=== PATIENT | female | born 1950 | race Two or more races ===

== ENCOUNTER 2024-03-15 20:46 | Inpatient (IN) | payer MEDICARE, SELFPAY ==
--- NOTE | ~2024-03-15 | XR_ITS ---
EXAMINATION: XR CHEST CLINICAL INFORMATION: NG tube. COMPARISON: Chest x-ray March 16, 2024, 3:25 PM TECHNIQUE: Frontal portable view of the chest was obtained. 5:28 PM FINDINGS: Nasogastric tube is still folded upon itself with the catheter tip pointing superiorly. The catheter has been pulled back and now overlies the mid to upper thoracic esophagus. No acute focal consolidation. No pleural effusion. No pulmonary vascular congestion. XR/XR chest 1V IMPRESSION: Nasogastric tube is still folded upon itself with the catheter tip pointing superiorly. The catheter has been pulled back and now overlies the mid to upper thoracic esophagus. Repositioning recommended. This critical result was discussed with Dr Schmitz on 02/15/2024, 6:09 PM and it was ascertained that the content and urgency of the report was understood at the time of direct communication.
--- NOTE | ~2024-03-15 | XR_ITS ---
EXAMINATION: XR CHEST CLINICAL INFORMATION: Nasogastric tube placement COMPARISON: CT of the abdomen and pelvis from earlier the same day TECHNIQUE: Frontal view of the chest was obtained. FINDINGS: Nasogastric tube appears coiled in the distal thoracic esophagus with tip of the tube projecting cephalad toward the head. Cardiac and mediastinal contours are normal. Lungs are clear. No pleural effusion or pneumothorax. There are dilated loops of bowel below the diaphragms similar to earlier CT. XR/XR chest 1V IMPRESSION: 1. Nasogastric tube coiled in the distal thoracic esophagus with tip of the tube projecting cephalad toward the head. Repositioning recommended. Findings will be communicated by the [place] work flow wall steamer.
--- NOTE | ~2024-03-15 | XR_ITS ---
EXAMINATION: XR CHEST CLINICAL INFORMATION: NG tube placement COMPARISON: Previous chest x-ray from earlier the same day TECHNIQUE: Frontal view of the chest was obtained. FINDINGS: Nasogastric tube projects over the stomach. The cardiac and mediastinal contours are stable. Subsegmental atelectasis at the left lung base. There may be a small left pleural effusion. The right lung is clear. No right pleural effusion. No pneumothorax. Distended bowel below the diaphragm. XR/XR chest 1V IMPRESSION: Nasogastric tube projects over stomach.
--- NOTE | ~2024-03-15 | CT_ITS ---
EXAMINATION: CT ABDOMEN AND PELVIS WITH CONTRAST CLINICAL INFORMATION: Abdominal pain for one month. Distention. No bowel movement. Rule out malignancy. COMPARISON: None available. TECHNIQUE: Multidetector volumetric images were obtained from the superior aspect of the liver through the pubic symphysis following administration 85 mL of Omnipaque 350 intravenous contrast. Sagittal and coronal reformatted images were obtained on the technologist's workstation. Oral contrast: No This CT examination was performed using dose optimization techniques as appropriate, variously including the following: *Automated exposure control *Adjustment of mA and/or kV according to patient size (this includes techniques or standardized protocols for targeted exams where dose is matched to indication/reason for exam; i.e. extremities or head) *Use of iterative reconstruction technique DLP: 448 mGy-cm FINDINGS: LUNG BASES: Trace left pleural fluid with minimal associated atelectasis. LIVER, GALLBLADDER, AND BILIARY TREE: The liver appears unremarkable in size, shape, and attenuation. No focal hepatic lesion or biliary ductal dilatation is appreciated. Unremarkable appearance of the gallbladder. 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 The kidneys otherwise appear unremarkable in size, shape, and attenuation. No hydronephrosis, hydroureter, or calculi seen. BLADDER: Unremarkable GASTROINTESTINAL TRACT: Suspect abnormal, irregular thickening of the wall of the mid to distal sigmoid colon (image 66, axial series 3; image 38, coronal series 7). Dilation of more proximal colon and small bowel, many containing air-fluid levels. The cecum measures up to approximately 7.6 cm in diameter. Small to moderate hiatus hernia. ABDOMINAL WALL: Bilateral groin hernias. The hernia on the right is felt more likely to represent a femoral rather than inguinal hernia, and measures up to approximately 4.5 cm. The hernia on the left is felt more likely to represent an inguinal hernia and measures up to approximately 2 cm. Both contain trace fluid. Mild anasarca. LYMPH NODES: No evidence of adenopathy by size criteria. VASCULAR: Unremarkable PELVIC VISCERA: Unremarkable OSSEOUS STRUCTURES: Degenerative changes of the lumbar spine with minimal grade 1 anterolisthesis of L3 on L4 and L4 on L5. Superior endplate softening/compression of L2. Geographic hypodensities involving the lower lumbar vertebrae and sacrum. This hypodensity appears to demonstrate fat attenuation Hounsfield unit values throughout, and may represent a combination of normal fatty marrow replacement and hemangiomas. CT/CT abdomen pelvis w IV con IMPRESSION: Suspect abnormal, irregular thickening of the wall of the mid to distal sigmoid, suspicious for malignancy. Dilation of more proximal colon and small bowel, many containing air-fluid levels, suggesting early or partial obstruction. The cecum measures up to approximately 7.6 cm in diameter. No evidence of adenopathy or metastatic disease. Superior endplate softening/compression of L2. Recommend clinical correlation. Bilateral groin hernias as detailed above. Trace left pleural fluid.
[2024-03-15 22:23] VITALS: BP 136/65; PULSE 86; RESP 14; TEMP 36.6; O2SAT 100; BMI 22.1
[2024-03-15 22:40] LABS: MANUAL DIFF FLAG NO
[2024-03-15 22:41] LABS: Basophils Percent Auto 0.1 % (0-2); Hematocrit 27.1 % (37.0-47.0); Hemoglobin 8.2 g/dl (12.0-16.0); Imm Gran Abs Auto 0.03 X10*3/uL (0.00-0.03); Imm Gran Pct Auto 0.4 % (0.0-0.4); Lymphocytes Absolute Auto 0.7 X10*3/uL (1.2-4.9); Lymphocytes Percent Auto 9.3 % (20-40); Mean Corpuscular HGB Conc 30.3 g/dl (31.0-35.0); Mean Corpuscular Hemoglobin 22.7 pg (27.0-33.0); Mean Corpuscular Volume 74.9 fL (80.0-98.0); Mean Platelet Volume 8.7 fL (9.4-12.3); Monocytes Absolute Auto 0.8 X10*3/uL (0.1-1.2); Monocytes Percent Auto 9.8 % (2-11); Neutrophils Absolute Auto 6.1 x10*3/uL (2.0-8.3); Neutrophils Percent Auto 80.4 % (45-73); Platelet Count 493 X10*3/uL (160-400); Red Blood Count 3.62 X10*6/uL (4.20-5.50); Red Cell Distribution Width 18.3 % (11.0-16.0); White Blood Count 7.6 X10*3/uL (4.8-10.8)
[2024-03-15 22:55] LABS: COVID-19 Test Negative (Negative); IDNOW Serial# 152EDE1D
[2024-03-15 22:56] LABS: Alanine Aminotransferase 18 U/L (0-31); Alkaline Phosphatase 107 U/L (39-117); Anion Gap 22 (12-20); Aspartate Amino Transferase 26 U/L (5-31); Bilirubin Total 0.5 mg/dL (0.0-1.0); Blood Urea Nitrogen 22 mg/dL (9-16); Calcium 9.2 mg/dL (8.4-10.2); Carbon Dioxide 20 mmol/L (22-29); Chloride 98 mmol/L (96-108); Creatinine Clr Calc Pharmacy 49.6; Estimated Glomerular Filt Rate > 60; Glucose Random 126 mg/dL (60-115); Lipase 31 U/L (8-78); Potassium 3.5 mmol/L (3.3-5.1); Sodium 136 mmol/L (135-145); Total Protein 7.5 g/dL (6.5-8.0)
[2024-03-16] VITALS (10 sets, daily range): BP systolic 111–152; BP diastolic 53–71; PULSE 74–94; RESP 14–20; TEMP 36.4–37.2; O2SAT 93–100
--- NOTE | 2024-03-16 | ECG_ITS ---
Test Reason : ABD PAIN Blood Pressure : / mmHG Vent. Rate : 085 BPM Atrial Rate : 085 BPM P-R Int : 140 ms QRS Dur : 074 ms QT Int : 396 ms P-R-T Axes : 089 033 016 degrees QTc Int : 471 ms Sinus rhythm with occasional Premature ventricular complexes Minimal voltage criteria for LVH, may be normal variant ( Sokolow-Snow ) Cannot rule out Anterior infarct , age undetermined Abnormal ECG No previous ECGs available Referred By: Generic ED Physician Electronically Signed By:BOBBY HERNANDEZ
--- NOTE | 2024-03-16 04:42 | MHC.EDTECH ---
Pt notified of the need for a Urine sample. Vital signs taken.
--- NOTE | 2024-03-16 05:03 | PC.NURSE ---
Pt reports no BM since last . abd pain 7/10 and epigastric pain that radiates to left flank, and n/v. Pt has new onset of bilateral lower extremity edema. Pt denies headache/ chest pain/cough and sick contact. Pt is spo but daughter is at bedside and speaks swedish. IV access obtained. Pt changed into hospital attire. Hospital socks placed. Pt ambulates with a steady gait, but daughter assisted to restroom for UA collection. Plan of care ongoing.
--- NOTE | 2024-03-16 05:14 | ED.ABDPAIN ---
HPI - Abdominal Pain General Chief Complaint: Abdominal Pain Stated Complaint: constipation/back pain/bloated Time Seen by Provider: 03/16/24 05:13 Source: patient Mode of arrival: ambulatory Limitations: language barrier (Patient's 1st language is Cameroonian, she does speak some Brazilian) History of Present Illness HPI narrative: 73-year-old female who presents emergency department for evaluation of constipation, abdominal pain, abdominal distention, lower extremity swelling loss of appetite x1 month. The patient states that she has been having pain in her stomach for 1 month. She states she feels very bloated. The patient has nausea and is unable to eat. If she tries to eat or drinks water she vomits. She states that her legs are very swollen as well. She complains of a burning sensation in her throat and epigastric area as well as in her back. She states that the pain is constant in 7/10 at its worst. Patient has not noticed any change in her weight. She denied dark stools or bloody stools. Related Data Allergies Allergy/AdvReac Type Severity Reaction Status Date / Time No Known Allergies Allergy Verified 03/15/24 22:27 Review of Systems Review of Systems Yes all other systems are reviewed and are negative [facility] Past Medical History [facility] Narrative: Past medical history none. Surgical history: Left hip replacement. Social history she denies tobacco, alcohol and drug use Social History Social History Smoked in Last 30 Days: No Use of substances other than those prescribed or required for medical reasons: No Advance Directives: No Advance Directives Information Provided: No Do you have a plan to hurt others: No Plan Physical Exam ED Vital Signs: Vital Signs - 24 hr 03/15/24 22:23 03/16/24 01:24 03/16/24 04:41 Temperature 97.8 F 98.6 F 98.9 F Pulse Rate 86 78 91 Respiratory Rate 14 16 18 Blood Pressure 136/65 145/71 H 120/63 Pulse Oximetry 100 100 98 Oxygen Delivery Method Room Air Room Air Room Air 03/16/24 06:38 Temperature 97.6 F Pulse Rate 94 Respiratory Rate 14 Blood Pressure 127/60 Pulse Oximetry 98 Oxygen Delivery Method Room Air BMI result Body Mass Index 22.1 Vital signs were normal Exam: General: Awake, alert in no distress, strong ketotic odor to breath Head: Normocephalic, atraumatic EENT: PERRL, Lids normal, sclera normal, conjunctiva normal, nose normal , ears normal, throat without erythema or exudates Neck: Supple, no adenopathy Lung: breath sounds symmetric, no wheezing, rales or rhonchi Chest: symmetric movement, nontender Heart: regular rate and rhythm, normal S1, S2 2/6 systolic murmur best heard at the left upper sternal border Abdomen: Abdomen appears to be distended, she has diminished bowel sounds, she has [id number] diffuse tenderness with moderate to severe left lower quadrant tenderness Rectal exam: No external hemorrhoids noted, sphincter tone is normal, there is a palpable mass on digital exam, there was no stool in the rectum or evidence of impaction Back: no vertebral tenderness, no CVAT Extremities: no deformities, moves all extremities symmetrically Neuro: Awake, alert, oriented, normal speech, moves all extremities symmetrically Psych: Pleasant, cooperative Medical Decision Making Medical Decision Making MDM Narrative: 73-year-old female who presents emergency department for evaluation of constipation, abdominal pain, abdominal distention, lower extremity swelling, loss of appetite x1 month. Patient has not been able to eat or drink secondary to nausea and vomiting. She complains of pain in her epigastric area and left lower abdominal area. Vital signs were normal. Exam revealed a strong ketotic odor on her breath consistent with starvation ketosis. Patient's abdomen was distended with diffuse tenderness with increased tenderness in the left lower quadrant. Rectal exam did reveal a mass on digital exam with no stool in the rectum and no impaction. Differential diagnosis: ?Includes but is not limited to constipation, GI malignancy, bowel obstruction, pancreatitis, diverticulitis, anemia, electrolyte abnormalities Following evaluation was ordered: CBC, CMP, lipase, urinalysis, COVID-19, EKG, CT scan of the abdomen pelvis with IV contrast Patient was initially treated with the following: Morphine 2 mg IV, Zofran 4 mg IV, normal saline x1 L Course: 05:49 My interpretation patient's laboratory evaluation is as follows: Microcytic anemia with an H&H of 8.2 and 27.1 with MCV of 74.9. Elevated platelet count [id number]. Elevated glucose 126. Elevated BUN 20. Low bicarb 20. LFTs were normal. Lipase was normal. Given the patient's microcytic anemia, abdominal symptoms and rectal mass I am concerned that the patient may have a GI malignancy as the cause of her symptoms. 08:37 CT scan of the abdomen pelvis IV contrast is concerning for distal partial small-bowel obstructions and sigmoid malignancy. I did discuss these findings with the patient and the patient's daughter. I did consult the on-call surgeon, Dr. Bryant who evaluated the patient in the emergency department and recommended admission to the hospitalist service. I also consulted over tiger text the covering care technician, Dr. Chu. The patient was discussed over tiger text with the covering hospitalist, Dr. Schmitz and the patient will be admitted to the hospitalist service for further management. Admission/Observation Consideration of admission/observation: Escalation of care including admission/observation considered Lab Data MDM Lab Attestation statement: I reviewed the patient's lab results. 03/15/24 22:35 03/15/24 22:35 Labs: Lab Results 03/15/24 03/16/24 Range/Units 22:35 05:20 WBC 7.6 (4.8-10.8) X10*3/uL RBC 3.62 L (4.20-5.50) X10*6/uL Hgb 8.2 L (12.0-16.0) g/dl Hct 27.1 L (37.0-47.0) % MCV 74.9 L (80.0-98.0) fL MCH 22.7 L (27.0-33.0) pg MCHC 30.3 L (31.0-35.0) g/dl RDW 18.3 H (11.0-16.0) % Plt Count 493 H (160-400) X10*3/uL MPV 8.7 L (9.4-12.3) fL Immature Gran % (Auto) 0.4 (0.0-0.4) % Neut % (Auto) 80.4 H (45-73) % Lymph % (Auto) 9.3 L (20-40) % [place] % (Auto) 9.8 (2-11) % Eos % (Auto) 0.0 (0-4) % Baso % (Auto) 0.1 (0-2) % Lymph # (Auto) 0.7 L (1.2-4.9) X10*3/uL [place] # (Auto) 0.8 (0.1-1.2) X10*3/uL Eos # (Auto) 0.0 (0.0-0.4) X10*3/uL Baso # (Auto) 0.0 (0.0-0.2) X10*3/uL Abs Immat Gran (auto) 0.03 (0.00-0.03) X10*3/uL Absolute Neuts (auto) 6.1 (2.0-8.3) x10*3/uL Absolute Nucleated RBC 0.000 (0.0-0.012) X10*3/uL Nucleated RBC % (auto) 0.0 (0.0-0.2) /100WBC Sodium 136 (135-145) mmol/L Potassium 3.5 (3.3-5.1) mmol/L Chloride 98 (96-108) mmol/L Carbon Dioxide 20 L (22-29) mmol/L Anion Gap 22 H (12-20) BUN 22 H (9-16) mg/dL Creatinine 0.81 (0.5-1.4) mg/dL Estim Creat Clear Calc 49.6 Estimated GFR > 60 Random Glucose 126 H (60-115) mg/dL Calcium 9.2 (8.4-10.2) mg/dL Total Bilirubin 0.5 (0.0-1.0) mg/dL AST 26 (5-31) U/L ALT 18 (0-31) U/L Alkaline Phosphatase 107 (39-117) U/L Total Protein 7.5 (6.5-8.0) g/dL Albumin 4.0 (3.5-5.0) g/dL Lipase 31 (8-78) U/L Urine Color Dark Yellow Urine Appearance Clear Urine pH 5.5 (5.0-9.0) Ur Specific [place] >= 1.030 H (1.005-1.025) Urine Protein 30 (1+) H (Neg-Trace) mg/dL Urine Glucose (UA) Negative (Negative) mg/dL Urine Ketones >=160 (Negative) mg/dL Urine Blood Negative (Negative) Urine Nitrite Negative (Negative) Ur Leukocyte Esterase Trace H (Negative) Urine RBC 0-2 (0-2) /HPF Urine WBC 0-5 (0-5) /HPF Ur Squamous Epith Cells 0-2 (0-2) /HPF Urine Bacteria None Seen (None Seen) Hyaline Casts 0-2 (0-2) /LPF COVID-19 (RAHUL) Negative (Negative) COVID-19 Clin Com See Note Independent Interpretation I performed an independent interpretation of an: EKG Interpretation: 05:51 My interpretation of the patient's 12 EKG done at 05:25 hours is as follows: Normal sinus rhythm with a rate of 85, normal OH interval, QRS duration QTC interval, no ST segment elevation, no ST segment depression, poor R-wave progression V1 through V3, nonspecific T-wave abnormalities, no PACs, no PVCs Radiology Impression Discussion of test interpretation with radiology: I have reviewed the radiologist's reading. Radiologist Impression: CT abdomen pelvis w IV con IMPRESSION: Suspect abnormal, irregular thickening of the wall of the mid to distal sigmoid, suspicious for malignancy. Dilation of more proximal colon and small bowel, many containing air-fluid levels, suggesting early or partial obstruction. The cecum measures up to approximately 7.6 cm in diameter. No evidence of adenopathy or metastatic disease. Superior endplate softening/compression of L2. Recommend clinical correlation. Bilateral groin hernias as detailed above. Trace left pleural fluid. Dictated By: Davin Qiu Medications Administered Discontinued Medications Generic Name Dose Route Start Last Admin Trade Name Freq PRN Reason Stop Dose Admin Sodium Chloride 1,000 mls @ 999 mls/hr 03/16/24 05:40 03/16/24 05:47 Ns IV 03/16/24 06:40 999 mls/hr .Q1H1M STA Administration Iohexol 85 ml 03/16/24 06:52 03/16/24 06:54 Iohexol 350 Mg/Ml 100 Ml Infus..Btl IV 03/16/24 06:53 85 ml ONCE ONE Administration Morphine Sulfate 2 mg 03/16/24 05:40 03/16/24 05:46 Morphine Sulfate 4 Mg/Ml Cartridge IVPUSH 03/16/24 05:41 2 mg ONCE STA Administration Protocol Ondansetron HCl 4 mg 03/16/24 05:40 03/16/24 05:46 Ondansetron Hcl 4 Mg/2 Ml Vial IVPUSH 03/16/24 05:41 4 mg ONCE ONE Administration Critical Care Time Critical Care Time Critical Care Time: Yes Total Critical Care Time: 45 Attestation: Critical Care: The patient was critically ill with a high probability of imminent or life threatening deterioration. I spent greater than 30 minutes of discontinuous time evaluating the patient,delivering critical care at the bedside, discussing and evaluating pertinent data with consultants. Critical care time does not include time spent performing separately billable procedures or teaching. Total time spent performing critical care was 45 minutes. Discharge Plan Discharge Patient Disposition: Admitted As Inpatient Print Language: Cam[place]onian
[2024-03-16] MEDS: ondansetron HCL 4 MG/2 ML VIAL IVPUSH ×2 (05:46→08:55)
[2024-03-16] MEDS: Morphine Sulfate 4 MG/ML CARTRIDGE 2 MG IVPUSH ×2 (05:46→18:58)
[2024-03-16 05:47] LABS: Appearance Urine Clear; Color Urine Dark Yellow; Glucose Urine UA Negative (Negative); Leukocyte Esterase Urine Trace (Negative); Nitrite Urine Negative (Negative); PH 5.5 (5.0-9.0); Specific Gravity - Urine >= 1.030 (1.005-1.025); UMIC TRIGGER UACC YES; Urine Blood Negative (Negative); Urine Ketones >=160 mg/dL (Negative); Urine Protein 30 (1+) mg/dL (Neg-Trace)
[2024-03-16] MEDS: 0.9 % Sodium Chloride 1,000 ML 999 ML IV (05:47)
--- NOTE | 2024-03-16 05:53 | PC.NURSE ---
Pt confirms no NKDA. Pt ca&ox4, no signs of distress. Pt medicated per mar. Daughter remains at bedside. Plan of care ongoing.
[2024-03-16 06:08] LABS: Bacteria Urine None Seen (None Seen); Hyaline Casts Urine 0-2 /LPF (0-2); RBC Urine 0-2 /HPF (0-2); Squamous Epithelial Cell Urine 0-2 /HPF (0-2); WBC Urine 0-5 /HPF (0-5)
--- NOTE | 2024-03-16 06:31 | PC.NURSE ---
Pt with CT. Daughter remains at bedside. Plan of care ongoing
[2024-03-16] MEDS: iohexoL 350 MG/ML 100 ML INFUS..BTL 85 ML IV (06:54)
--- NOTE | 2024-03-16 08:50 | P.CONGS_ITS ---
History of Present Illness Consult details Consult date: 03/16/24 Reason for consult: abdominal pain Requesting physician: Solomon Jett Narrative: 73-year-old female patient presents to the emergency department with complaints of abdominal pain, distention and constipation. She reports anorexia and nausea/vomiting which has progressed over the past month. The nausea and distention has been episodic but increased over the past week necessitating the visit to the emergency department. She does report 2 episodes of blood per rectum but generally has been constipated. Patient denies a previous history of abdominal surgeries. She denies a previous colonoscopy. On evaluation in the emergency department the patient was felt to possibly have a palpable rectal mass. Workup with CT abdomen and pelvis reveals thickening of the sigmoid colon suggestive of malignancy. Laboratories reveal a microcytic anemia. Review of Systems 2 Review of Systems: Yes all other systems are reviewed and are negative Constitutional: Constitutional: Denies chills, Denies fever(s), Denies headache(s), Reports poor appetite and Reports weakness ENT: Denies headache(s) Cardiovascular: Cardiovascular: Denies chest pain, Denies irregular heart rhythm, Denies palpitations and Denies dyspnea Respiratory: Respiratory: Denies cough, Denies excessive phlegm production and Denies dyspnea Gastrointestinal: Gastrointestinal: Reports abdominal pain, Reports bloating, Reports change in bowel habits, Reports constipation, Denies heartburn, Denies diarrhea, Reports nausea and Reports vomiting Genitourinary: Genitourinary: Denies urinary frequency Musculoskeletal: Musculoskeletal: Denies back pain, Denies muscle weakness and Denies numbness Integumentary/Breasts: Skin/Breast: Denies changing lesions and Denies unusual bruising Neurologic: Denies headache(s), Denies numbness, Denies paresthesias and Reports weakness Psychiatric: Psychiatric: Denies anxiety and Denies depression Endocrine: Endocrine: Reports flushing and Denies palpitations Hematologic/Lymphatic: Hematologic/Lymphatic: Denies lymphadenopathy PMFSH Social History Social History Smoked in Last 30 Days: No Use of substances other than those prescribed or required for medical reasons: No Advance Directives: No Advance Directives Information Provided: No Do you have a plan to hurt others: No Plan Meds Allergies Allergy/AdvReac Type Severity Reaction Status Date / Time No Known Allergies Allergy Verified 03/15/24 22:27 Active Medications: Current Medications Dextrose/Sodium Chloride (D5ns) 1,000 mls @ 125 mls/hr IVCONT .Q8H [facility] Physical Exam 2 Vital Signs: Vital Signs: Last Vital Signs Temp 97.6 F 03/16/24 06:38 Pulse 94 03/16/24 06:38 Resp 14 03/16/24 06:38 BP 127/60 03/16/24 06:38 Pulse Ox 98 03/16/24 06:38 O2 Del Method Room Air 03/16/24 06:38 BMI result Body Mass Index 22.1 Const: General: cooperative and no acute distress Nutritional Appearance: w ell nourished Orientation/consciousness: patient oriented x3 Limitations: no limitations HEENT: Head: Yes normocephalic and Yes atraumatic Ears: hearing grossly normal bilaterally Resp: Effort & Inspection: normal respiratory effort, no audible wheezes, no cough and no respiratory distress Cardio: Jugular venous distension: no JVD GI: Inspection: Yes normal to inspection and Yes distended Palpation (GI): Firmness to palpation present (GI), Tenderness to palpation present (GI) (Diffusely) with no rebound tenderness, no guarding and not rigid Percussion: Yes tympanic to percussion Auscultation: Absent bowel sounds Rectal Exam - Female: deferred Skin: Other: Warm, dry, no rash Neuro: General: patient oriented x3 Extrem: General: Yes no clubbing, cyanosis or edema Results Labs 03/15/24 22:35 03/15/24 22:35 Labs: Abnormal lab results 03/15/24 03/16/24 Range/Units 22:35 05:20 RBC 3.62 L (4.20-5.50) X10*6/uL Hgb 8.2 L (12.0-16.0) g/dl Hct 27.1 L (37.0-47.0) % MCV 74.9 L (80.0-98.0) fL MCH 22.7 L (27.0-33.0) pg MCHC 30.3 L (31.0-35.0) g/dl RDW 18.3 H (11.0-16.0) % Plt Count 493 H (160-400) X10*3/uL MPV 8.7 L (9.4-12.3) fL Neut % (Auto) 80.4 H (45-73) % Lymph % (Auto) 9.3 L (20-40) % Lymph # (Auto) 0.7 L (1.2-4.9) X10*3/uL Carbon Dioxide 20 L (22-29) mmol/L Anion Gap 22 H (12-20) BUN 22 H (9-16) mg/dL Random Glucose 126 H (60-115) mg/dL Ur Specific [place] >= 1.030 H (1.005-1.025) Urine Protein 30 (1+) H (Neg-Trace) mg/dL Ur Leukocyte Esterase Trace H (Negative) Short CBC 03/15/24 Range/Units 22:35 WBC 7.6 (4.8-10.8) X10*3/uL Hgb 8.2 L (12.0-16.0) g/dl Hct 27.1 L (37.0-47.0) % Plt Count 493 H (160-400) X10*3/uL BMP 03/15/24 22:35 Sodium 136 Potassium 3.5 Chloride 98 Carbon Dioxide 20 L BUN 22 H Creatinine 0.81 Calcium 9.2 Liver Function 03/15/24 Range/Units 22:35 Total Bilirubin 0.5 (0.0-1.0) mg/dL AST 26 (5-31) U/L ALT 18 (0-31) U/L Alkaline Phosphatase 107 (39-117) U/L Albumin 4.0 (3.5-5.0) g/dL Urine 03/16/24 Range/Units 05:20 Urine Color Dark Yellow Urine Appearance Clear Urine pH 5.5 (5.0-9.0) Ur Specific [place] >= 1.030 H (1.005-1.025) Urine Protein 30 (1+) H (Neg-Trace) mg/dL Urine Glucose (UA) Negative (Negative) mg/dL All other labs normal. Assessment and Plan (1) Rectal mass: Status: Acute (2) Partial obstruction of small intestine: Status: Acute (3) Microcytic anemia: Status: Acute (4) Constipation: Qualifiers: Constipation type: outlet dysfunction constipation Qualified Code(s): K 59.02 - Outlet dysfunction constipation Status: Acute (5) Abdominal pain: Qualifiers: Abdominal location: left lower quadrant Qualified Code(s): R10.32 - Left lower quadrant pain Status: Acute Plan 73-year-old female patient presenting with obvious abdominal distention of a prolonged period of time found on initial evaluation to have a possible sigmoid mass and dilated proximal loops of bowel suggestive of bowel obstruction. Patient will need further workup including tissue biopsy with sigmoidoscopy, metastatic workup. If lesion is indeed in the sigmoid colon may be amenable to primary resection possibly with diverting loop ileostomy. Recommend GI/Oncology consultation. Procedures Date of Service Date of Service: 03/16/24
[2024-03-16] MEDS: Dextrose 5 % and 0.9 % NaCl 1,000 ML 125 ML IVCONT ×2 (08:55→17:37)
--- NOTE | 2024-03-16 09:30 | PHA.MEDREC ---
Pharmacy Consult ? Medication Reconciliation Pharmacy has completed the medication reconciliation. Patient says she takes no medications at home, patients daughter (?) also confirmed this.
--- NOTE | 2024-03-16 11:09 | P.HPHOSP_ITS ---
History of Present Illness Date of Service: 03/16/24 Attending physician on admission: Ivis Schmitz Chief Complaint: Abdominal pain Pt is a 73-year-old female with a PMH significant for?left hip replacement not currently home meds who presents to the ED with?anorexia, nausea, vomiting, and abdominal pain x1 week. Patient states she is experienced bloating, nausea and vomiting with eating or drinking anything, intermittent lower left quadrant abdominal pain since last week, worse the past few days. Also reports constipation during this time with only a small bowel movement the day before yesterday. Says passed some flatus yesterday but none today. Has noticed a little bit blood once or twice recently with bowel movements, denies rectal pain. Reports recent increased fatigue and losing a ?little bit? of weight. Has had new, significant lower leg edema x3 weeks; past few days has been unable to fit into her shoes. Denies SOB, cough. No orthopnea or PND. Denies chest pain/pressure or palpitations. No fever, chills. Of note, pt denies hx of colonoscopy and has not seen a PCP in many years. In the ED pt's vitals stable, largely WNL. Labs were significant for microcytic anemia of 8.2/27.1 with MCV 74.9, otherwise grossly unremarkable. No leukocytosis. No significant electrolyte abnormalities. Renal and hepatic function WNL. UA negative for UTI. CT?of Ativan and pelvis showed suspected abnormal, irregular thickening of the wall the mid to distal sigmoid, suspicion for malignancy. Also found of proximal colon and small bowel dilation, suggestive of early partial obstruction. EKG demonstrated sinus rhythm with occasional PVCs, but no evidence of significant ST elevations or depressions. Pt was treated with ondansetron, morphine, IVF, and started on D5 NS maintenance fluid. Pt will be admitted to the hospital for treatment and further evaluation of possible SBO in the setting colonic mass. Review of Systems 2 Review of Systems: Nausea, vomiting, anorexia Intermittent lower left quadrant abdominal pain Abdominal bloating Constipation Fatigue, weight loss Hematochezia Lower leg edema No SOB, cough, orthopnea, or PND Denies fever, chills No chest pain/pressure, palpitations [facility] Surgical History (Updated 03/16/24 @ 12:16 by PONCHO Olmos) History of total left hip arthroplasty Social History Smoked in Last 30 Days: No Use of substances other than those prescribed or required for medical reasons: No Advance Directives: No Advance Directives Information Provided: No Do you have a plan to hurt others: No Plan Meds Allergies Allergy/AdvReac Type Severity Reaction Status Date / Time No Known Allergies Allergy Verified 03/15/24 22:27 Active Medications: Current Medications Dextrose/Sodium Chloride (D5ns) 1,000 mls @ 125 mls/hr IVCONT .Q8H JANINA Last Admin: 03/16/24 08:55 Dose: 125 mls/hr Home Medications ?Medication ?Instructions ?Recorded ?Confirmed ?Last Taken ?Type No Known Home Meds 03/16/24 03/16/24 Unknown History Physical Exam 2 Vital Signs and Narrative: Vital Signs: Last Vital Signs Temp 97.5 F 03/16/24 08:53 Pulse 80 03/16/24 08:53 Resp 16 03/16/24 08:53 BP 111/53 L 03/16/24 08:53 Pulse Ox 96 03/16/24 08:53 O2 Del Method Room Air 03/16/24 08:53 BMI result Body Mass Index 22.1 Constitutional: Alert, in no acute distress. Mental Status: Oriented to person, place and time. Eyes: Pupils are equal, round, and reactive to light. Ear, Nose, and Throat: Oropharynx clear, mucous membranes dry. Ears and nose without deformities. Trachea midline. Respiratory: Clear to auscultation bilaterally. No wheezing, rales, or rhonchi. Cardiovascular: S1, S2 regular. No murmurs, rubs, or gallops. Gastrointestinal: Abdomen soft, distended, with LLQ tenderness. Normal bowel sounds. Neurologic: Cranial nerves II-XII are grossly intact bilaterally. No focal neurological deficits. Moves all extremities spontaneously. Skin: Warm, dry. Extremities: 3+ bilateral pitting edema. Psychiatric: Normal mood and affect. Results Labs 03/15/24 22:35 03/15/24 22:35 Labs: Laboratory Results - last 24 hr 03/15/24 03/16/24 22:35 05:20 MCV 74.9 L MCH 22.7 L MCHC 30.3 L RDW 18.3 H Plt Count 493 H MPV 8.7 L Immature Gran % (Auto) 0.4 Neut % (Auto) 80.4 H Lymph % (Auto) 9.3 L [place] % (Auto) 9.8 Eos % (Auto) 0.0 Baso % (Auto) 0.1 Lymph # (Auto) 0.7 L [place] # (Auto) 0.8 Eos # (Auto) 0.0 Baso # (Auto) 0.0 Abs Immat Gran (auto) 0.03 Absolute Neuts (auto) 6.1 Absolute Nucleated RBC 0.000 Nucleated RBC % (auto) 0.0 Anion Gap 22 H Estim Creat Clear Calc 49.6 Estimated GFR > 60 Random Glucose 126 H Calcium 9.2 Total Bilirubin 0.5 AST 26 ALT 18 Alkaline Phosphatase 107 Total Protein 7.5 Albumin 4.0 Lipase 31 Urine Color Dark Yellow Urine Appearance Clear Urine pH 5.5 Ur Specific [place] >= 1.030 H Urine Protein 30 (1+) H Urine Glucose (UA) Negative Urine Ketones >=160 Urine Blood Negative Urine Nitrite Negative Ur Leukocyte Esterase Trace H Urine RBC 0-2 Urine WBC 0-5 Ur Squamous Epith Cells 0-2 Urine Bacteria None Seen Hyaline Casts 0-2 COVID-19 (RAHUL) Negative COVID-19 Clin Com See Note Imaging Radiologist's Impressions: Impressions Abdomen/Pelvis CT 03/16/24 06:45 IMPRESSION: Suspect abnormal, irregular thickening of the wall of the mid to distal sigmoid, suspicious for malignancy. Dilation of more proximal colon and small bowel, many containing air-fluid levels, suggesting early or partial obstruction. The cecum measures up to approximately 7.6 cm in diameter. No evidence of adenopathy or metastatic disease. Superior endplate softening/compression of L2. Recommend clinical correlation. Bilateral groin hernias as detailed above. Trace left pleural fluid. Assessment and Plan (1) Partial obstruction of small intestine: Status: Acute (2) Mass of colon: Status: Acute Plan Pt is a 73-year-old female with a PMH significant for?left hip replacement not currently home meds who presents to the ED with?anorexia, nausea, vomiting, and abdominal pain x1 week. Pt will be admitted to the hospital for treatment and further evaluation of possible SBO in the setting colonic mass. Mass of colon Patient with N/V, anorexia, constipation, abdominal pain, bloating, hematochezia, fatigue, weight loss x1 week CT of abd/pelvis is showing abnormal regular thickening mid to distal sigmoid suspicious for malignancy GI consult for flexible sigmoidoscopy with biopsy Patient will made NPO Question of SBO Patient with N/V, anorexia, constipation, abdominal pain, bloating x1 week CT of the abdomen/pelvis suggestive of early partial obstruction Will treat with bowel rest, pain management, anti-emetics IVF: D5 NS @ 125 ml/hr Hold on NGT for now General surgery consult Microcytic anemia Likely secondary to colon mass Will check iron profile Follow CBC Lower leg edema Unclear etiology, possibly secondary to colon mass CT of abd/pelvis showing trace left pleural fluid Will check BNP Full Code Attending:?Dr. Schmitz DVT Prophylaxis: Pneumatic boots due to likely procedure tomorrow Pt will require a hospitalization of at least two nights for treatment of?likely SBO in the setting colonic mass. Patient will require hospitalization for bowel rest, IV antiemetics, IVF, and IV analgesics, as well as specialist consultation with GI and General surgery for further workup and evaluation possible malignancy of colon. Quality Stroke Does the patient have a stroke diagnosis?: No VTE Prior VTE?: No VTE Risk Level:: Medical - moderate - high VTE Device Contraindication: N/A - Device Ordered VTE Drug Contraindication: Treatment Not Indicated
--- NOTE | 2024-03-16 16:54 | PC.NURSE ---
pulled NGT out about 8inches after X ray read out.
[2024-03-16] MEDS: 0.9 % Sodium Chloride Flush 3 ML SYRINGE IVFLUSH (17:40)
--- NOTE | 2024-03-16 22:36 | P.EN_ITS ---
Event Note Date of Service: 03/16/24 Event Note: Patient seen at 12:30PM today. GI Consult-Full note dictated-History via patient with her son as interface control officer, and from the EMR. Imp: High suspicion for at least a partially obstructing distal colonic neoplasm based on her exam, clinical history, CT scan, and microcytic anemia. Rec: NG tube, NPO, Flex sig 5/2, Surgical consult, F/U labs including a CEA level. Full consent obtained for the Flex sig, including risks of bleeding and perforation. D/W patient and her son in detail. They are comfortable with this plan. Thanks Time Spent With Patient Time: Total time managing care of this patient today ____ minutes.
--- NOTE | 2024-03-16 22:38 | PC.NURSE ---
#14FR NG tube inserted into left nares without difficulty pt phylicia well.Stat CXR done to check for placement.Report in computer Carrol ISAAC notified OK to connect to suction .Draining small amt of white secretions.
--- NOTE | 2024-03-16 22:46 | MHC.SHP ---
Pre-Procedural Eval Section A - 24 Hr Update-Section A only Date of Service: 03/17/24 The patient is an INPATIENT: Yes The patient has been examined within 24 hours of the surgical procedure. The History & Physical has been completed within 30 days and I have reviewed it.: Yes Section B - Complete if H&P > 30 days Chief Complaint: Colon Mass ? SBO Allergies: Allergies Allergy/AdvReac Type Severity Reaction Status Date / Time No Known Allergies Allergy Verified 03/15/24 22:27 Plan I have reviewed the history and physical and performed a pertinent physical examination on my patient. No changes have occurred unless specified. Time Spent With Patient Time: Total time managing care of this patient today ____ minutes.
[2024-03-17] VITALS (11 sets, daily range): BP systolic 96–153; BP diastolic 52–75; PULSE 62–75; RESP 12–18; TEMP 36.1–38.5; O2SAT 93–98
[2024-03-17] MEDS: Dextrose 5 % and 0.9 % NaCl 1,000 ML 125 ML IVCONT ×2 (00:13→07:17)
--- NOTE | 2024-03-17 01:25 | CONS_ITS ---
DATE OF SERVICE: 03/16/2024 REASON FOR CONSULTATION: Abnormal CT scan of the abdomen including a probable sigmoid mass and at least a partial bowel obstruction, and microcytic anemia. HISTORY OF PRESENT ILLNESS: History was obtained from the patient with her son as candle making supervisor, as well as from the medical record. The patient is a 73-year-old female in generally good health who has had at least 2 weeks of some progressive GI complaints of abdominal bloating, abdominal discomfort, abdominal cramps, and constipation. She also had 1 or 2 episodes of some red blood on the toilet paper. Prior to the past couple of weeks, she apparently has been at her healthy baseline without any particular GI complaints. She enjoys a good appetite without any significant heartburn or dysphagia. She does not have any other abdominal pain and has not noticed any jaundice. She has lost some weight, but is not clear about that. Prior to the onset of her symptoms, her bowel movements have always been regular. Over the past couple weeks at least there has been some constipation with diminished bowel movements. She reports that she has never had a colonoscopy. There is no known family history of colorectal cancer. MEDICATIONS: At home none. Medications here in the hospital currently include morphine p.r.n. and Zofran p.r.n. PAST MEDICAL HISTORY: Appendectomy, left hip replacement. There is no reported history of ID, diabetes, stroke, nor renal disease. SOCIAL HISTORY: She is . She does not smoke nor use any significant amounts of alcohol. FAMILY HISTORY: Noncontributory. REVIEW OF SYSTEMS: CONSTITUTIONAL: She has been feeling weak and tired at home. SKIN: No pruritus. CARDIAC: No chest pain. PULMONARY: No coughing nor hemoptysis. GASTROINTESTINAL: As above. GENITOURINARY: No dysuria or hematuria. PHYSICAL EXAMINATION: GENERAL: She is a pleasant, alert female, in no distress. HEENT: She does have some bitemporal wasting. Moist mucous membranes. Anicteric sclerae. NECK: Supple. CARDIAC: Normal S1, S2. ABDOMEN: Distended and somewhat tense. It is tympanitic. Bowel sounds are diminished. There is some mild diffuse tenderness. NEUROLOGIC: She is alert and oriented. LABORATORY DATA: Her abdominal CT scan done March 15, described a dilated proximal colon and small bowel with air-fluid levels. There does seem to be some irregular thickening of the wall of the mid to distal sigmoid colon consistent with possible neoplasm. There is no evidence of any lymphadenopathy nor obvious metastatic disease. Her white blood cell count 7.6, hemoglobin 8.2, MCV 75, platelets 492,000. Normal electrolytes. BUN 22, creatinine 0.8. LFTs are normal. 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 There was a proximal obstruction in the GI tract as well. This most likely reflects a colonic neoplasm. At this point, I would recommend a nasogastric tube try to relieve any component of her bowel obstruction given her current examination. I did recommend a flexible sigmoidoscopy tomorrow with monitored anesthesia care. Full consent has been obtained for that, including risks of bleeding and perforation. The procedure will be done with monitored anesthesia care. She has already been seen by surgery. In addition to repeating her laboratories with blood count, I would also check a CEA level. I did review with her son that given her current clinical appearance and the CT scan findings, I would not think she would be a candidate for colonoscopy as she would not tolerate an oral prep at this time. This has all been discussed in detail with the patient and her son. They are comfortable with the plan. Thanks you for this consultation MD ELLY Yin/GONSALO / [phone] MTDD
[2024-03-17 07:05] LABS: INTERNATIONAL NORM RATIO 1.1 (0.9-1.1); Prothrombin Time 13.9 SEC (11.1-13.3)
[2024-03-17 07:56] LABS: Basophils Percent Auto 0.1 % (0-2); Hematocrit 25.1 % (37.0-47.0); Hemoglobin 7.5 g/dl (12.0-16.0); Imm Gran Abs Auto 0.04 X10*3/uL (0.00-0.03); Imm Gran Pct Auto 0.5 % (0.0-0.4); Lymphocytes Absolute Auto 0.8 X10*3/uL (1.2-4.9); Lymphocytes Percent Auto 9.8 % (20-40); Mean Corpuscular HGB Conc 29.9 g/dl (31.0-35.0); Mean Corpuscular Hemoglobin 22.9 pg (27.0-33.0); Mean Corpuscular Volume 76.5 fL (80.0-98.0); Mean Platelet Volume 8.7 fL (9.4-12.3); Monocytes Absolute Auto 1.2 X10*3/uL (0.1-1.2); Monocytes Percent Auto 16.1 % (2-11); Neutrophils Absolute Auto 5.6 x10*3/uL (2.0-8.3); Neutrophils Percent Auto 73.5 % (45-73); Platelet Count 355 X10*3/uL (160-400); Red Blood Count 3.28 X10*6/uL (4.20-5.50); Red Cell Distribution Width 18.4 % (11.0-16.0); White Blood Count 7.7 X10*3/uL (4.8-10.8)
[2024-03-17 07:59] LABS: MANUAL DIFF FLAG NO
[2024-03-17 08:15] LABS: Anion Gap 10 (12-20); Blood Urea Nitrogen 9 mg/dL (9-16); Calcium 8.3 mg/dL (8.4-10.2); Carbon Dioxide 26 mmol/L (22-29); Chloride 108 mmol/L (96-108); Creatinine Clr Calc Pharmacy 61.8; Estimated Glomerular Filt Rate > 60; Glucose Random 143 mg/dL (60-115); Iron 10 mcg/dL (30-160); Percent Iron Saturation 3 % (15-50); Sodium 141 mmol/L (135-145); Total Iron Binding Capacity 296 mcg/dL (228-428); Unsaturated Iron Binding 286 ug/dL
[2024-03-17 08:16] LABS: B Type Natriuretic Peptide 573 pg/mL (<100)
[2024-03-17 08:21] LABS: Potassium 2.7 mmol/L (3.3-5.1)
[2024-03-17] MEDS: Potassium Chloride/H20 10 MEQ/100 ML PIGGYBACK 100 MEQ IV ×3 (09:00→11:42)
[2024-03-17] MEDS: Morphine Sulfate 4 MG/ML CARTRIDGE 2 MG IVPUSH ×2 (10:25→17:47)
--- NOTE | 2024-03-17 10:35 | PM.PNGS ---
Subjective Subjective Date of Service: 03/17/24 <Chayito Lugo PA-C - Last Filed: 03/17/24 13:16> 03/17/24 <Earl Bryant MD - Last Filed: 03/17/24 16:18> Interval history: Still bloated and having lower abd pain. Denies flatus. <Chayito Lugo PA-C - Last Filed: 03/17/24 13:16> Physical Exam Vital Signs: Vital Signs: Last Vital Signs Temp 97.4 F 03/17/24 07:53 Pulse 72 03/17/24 07:53 Resp 18 03/17/24 07:53 BP 153/71 H 03/17/24 07:53 Pulse Ox 94 03/17/24 07:53 O2 Del Method Room Air 03/17/24 07:53 BMI result Body Mass Index 22.1 <Chayito Lugo PA-C - Last Filed: 03/17/24 13:16> Const: General: comfortable, no acute distress and alert <Chayito Lugo PA-C - Last Filed: 03/17/24 13:16> HEENT: Other: NGT in place, scant drainage <Chayito Lugo PA-C - Last Filed: 03/17/24 13:16> Resp: Effort & Inspection: normal respiratory effort <Chayito Lugo PA-C - Last Filed: 03/17/24 13:16> GI: Inspection: Yes distended <Chayito Lugo PA-C - Last Filed: 03/17/24 13:16> Palpation (GI): Tenderness to palpation present (GI) (lower abd ) <Chayito Lugo PA-C - Last Filed: 03/17/24 13:16> Percussion: Yes tympanic to percussion <MARLIN Cabrera Last Filed: 03/17/24 13:16> Skin: General skin exam: no rashes or lesions noted <MARLIN Cabrera Last Filed: 03/17/24 13:16> Objective Data Active Medications Potassium Cl/Dextrose/Lact Ringer's (Kcl 20 Meq In 5 % Dex/Lact Rin) 20 meq in 1,000 mls @ 60 mls/hr IVCONT .[id number] [facility] Potassium Chloride (Potassium Chloride/H20) 10 meq in 100 mls @ 100 mls/hr IV ONCE ONE Stop: 03/17/24 11:24 Morphine Sulfate (Morphine Sulfate 4 Mg/Ml Cartridge) 2 mg IVPUSH Q4H PRN; Protocol PRN Reason: Pain, Severe (Pain Scale 7-10) Last Admin: 03/17/24 10:25 Dose: 2 mg Documented By: DINORA Ondansetron HCl (Ondansetron Hcl 4 Mg/2 Ml Vial) 4 mg IVPUSH Q8H PRN PRN Reason: Nausea and Vomiting Sodium Biphosphate/Sodium Phosphate (Sodium Phosphate,[place]-Dibasic 133 Ml Enema) 133 ml SD ONCE ONE Stop: 03/17/24 11:01 Sodium Chloride (0.9 % Sodium Chloride Flush 3 Ml Syringe) 3 ml IVFLUSH QSHIFT JANINA Last Admin: 03/17/24 07:05 Dose: Not Given Documented By: DINORA Non-Admin Reason: IV Running <Chayito Lugo PA-C - Last Filed: 03/17/24 13:16> Labs CBC & Chem 7: 03/17/24 07:44 03/17/24 14:17 <Chayito Lugo PA-C - Last Filed: 03/17/24 13:16> Labs: Laboratory Results - last 24 hr 03/17/24 03/17/24 03/17/24 05:56 07:44 09:09 MCV 76.5 L MCH 22.9 L MCHC 29.9 L RDW 18.4 H Plt Count 355 D MPV 8.7 L Immature Gran % (Auto) 0.5 H Neut % (Auto) 73.5 H Lymph % (Auto) 9.8 L [place] % (Auto) 16.1 H Eos % (Auto) 0.0 Baso % (Auto) 0.1 Lymph # (Auto) 0.8 L [place] # (Auto) 1.2 Eos # (Auto) 0.0 Baso # (Auto) 0.0 Abs Immat Gran (auto) 0.04 H Absolute Neuts (auto) 5.6 Absolute Nucleated RBC 0.000 Nucleated RBC % (auto) 0.0 Hold Purple Top SEE NOTE PT 13.9 H INR 1.1 Anion Gap 10 L Estim Creat Clear Calc 61.8 Estimated GFR > 60 Random Glucose 143 H Calcium 8.3 L D Iron 10 L TIBC 296 % Saturation 3 L Unsat Iron Binding 286 B-Natriuretic Peptide 573 H Carcinoembryonic Ag 5.90 Blood Type B Positive Antibody Screen NEGATIVE Crossmatch See Detail <Chayito Lugo PA-C - Last Filed: 03/17/24 13:16> Procedures Date of Service Date of Service: 03/17/24 <Chayito Lugo PA-C - Last Filed: 03/17/24 13:16> 03/17/24 <Earl Bryant MD - Last Filed: 03/17/24 16:18> Progress Note: A&P Assessment and plan (1) Mass of colon: Status: Acute <Chayito Lugo PA-C - Last Filed: 03/17/24 13:16> Assessment and Plan: Remains significantly distended despite NGT decompression. Undergoing flexible sigmoidoscopy today. Further plan dependent on location of mass and pathology. Continue supportive measures. <Chayito Lugo PA-C - Last Filed: 03/17/24 13:16> Time Spent With Patient Time: Total time managing care of this patient today ____ minutes. <Chayito Lugo PA-C - Last Filed: 03/17/24 13:16> Quality Stroke Does the patient have a stroke diagnosis?: No <Chayito Lugo PA-C - Last Filed: 03/17/24 13:16> VTE Prior VTE?: No <Chayito Lugo PA-C - Last Filed: 03/17/24 13:16> VTE Risk Level:: Medical - moderate - high <Chayito Lugo PA-C - Last Filed: 03/17/24 13:16> VTE Device Contraindication: N/A - Device Ordered <Chayito Lugo PA-C - Last Filed: 03/17/24 13:16> VTE Drug Contraindication: Treatment Not Indicated <Chayito Lugo PA-C - Last Filed: 03/17/24 13:16>
[2024-03-17] MEDS: Sodium Phosphate,Mono-Dibasic 133 ML ENEMA PR (12:11)
--- NOTE | 2024-03-17 12:21 | MHC.CM.PN ---
CM met with patient and daughter at bedside. RN prepping patient for procedure, so GRADER OPERATOR primarily completed w/ daughter Radha. IMM delivered. Patient lives at home w/ . Functionally independent. No DME or services. PCP Shyann Nobles MD No HCP, will revisit when patient is able to participate. DP: Goal is return home, ? services, family to transport. CM will continue to follow.
[2024-03-17] MEDS: KCl 20 mEq in 5 % Dex/Lact Rin 20 MEQ/1,000 ML IV.SOLN 60 MEQ IVCONT (12:27)
--- NOTE | 2024-03-17 13:06 | HO.PM.IMPN ---
Subjective Subjective Date of Service: 03/17/24 Interval History: Being followed for abdominal pain/mass in colon Patient feeling better this morning denies nausea vomiting, abdominal pain is stable, no fevers, no chills, gastric output 100, no acute events overnight noted to have low potassium 2.7 and drop in hematocrit this morning, no active bleed noted. Review of Systems All other system reviewed and negative Physical Exam Vital Signs: Vital Signs: Last Vital Signs Temp 98.5 F 03/17/24 11:25 Pulse 74 03/17/24 11:25 Resp 17 03/17/24 11:25 BP 133/68 03/17/24 11:25 Pulse Ox 94 03/17/24 07:53 O2 Del Method Room Air 03/17/24 07:53 BMI result Body Mass Index 22.1 Const: Other: General alert x3, in no acute distress. Neck supple no JVD. CVS regular rate rhythm, Respiratory lungs clear to auscultation, no respiratory distress, no wheeze, no rhonchi. Gastrointestinal abdomen distended, soft left lower quadrant tenderness to palpation, bowel sounds audible, no guarding , no rigidity. Extremities b/l edema. Neuro non focal Skin no rash Psych appropriate affect Objective Data Active Medications Potassium Cl/Dextrose/Lact Ringer's (Kcl 20 Meq In 5 % Dex/Lact Rin) 20 meq in 1,000 mls @ 60 mls/hr IVCONT .[id number] [facility] Last Infusion: 03/17/24 12:51 Dose: 0 mls/hr Documented By: DINORA Morphine Sulfate (Morphine Sulfate 4 Mg/Ml Cartridge) 2 mg IVPUSH Q4H PRN; Protocol PRN Reason: Pain, Severe (Pain Scale 7-10) Last Admin: 03/17/24 10:25 Dose: 2 mg Documented By: DINORA Ondansetron HCl (Ondansetron Hcl 4 Mg/2 Ml Vial) 4 mg IVPUSH Q8H PRN PRN Reason: Nausea and Vomiting Sodium Chloride (0.9 % Sodium Chloride Flush 3 Ml Syringe) 3 ml IVFLUSH QSHIFT [facility] Last Admin: 03/17/24 07:05 Dose: Not Given Documented By: DINORA Non-Admin Reason: IV Running Labs 03/17/24 07:44 03/17/24 07:44 Labs: Laboratory Results - last 24 hr 03/17/24 03/17/24 03/17/24 05:56 07:44 09:09 MCV 76.5 L MCH 22.9 L MCHC 29.9 L RDW 18.4 H Plt Count 355 D MPV 8.7 L Immature Gran % (Auto) 0.5 H Neut % (Auto) 73.5 H Lymph % (Auto) 9.8 L [place] % (Auto) 16.1 H Eos % (Auto) 0.0 Baso % (Auto) 0.1 Lymph # (Auto) 0.8 L [place] # (Auto) 1.2 Eos # (Auto) 0.0 Baso # (Auto) 0.0 Abs Immat Gran (auto) 0.04 H Absolute Neuts (auto) 5.6 Absolute Nucleated RBC 0.000 Nucleated RBC % (auto) 0.0 Hold Purple Top SEE NOTE PT 13.9 H INR 1.1 Anion Gap 10 L Estim Creat Clear Calc 61.8 Estimated GFR > 60 Random Glucose 143 H Calcium 8.3 L D Iron 10 L TIBC 296 % Saturation 3 L Unsat Iron Binding 286 B-Natriuretic Peptide 573 H Carcinoembryonic Ag 5.90 Blood Type B Positive Antibody Screen NEGATIVE Crossmatch See Detail Assessment and Plan (1) Mass of colon: Status: Acute (2) Partial obstruction of small intestine: Status: Acute (3) Rectal mass: Status: Acute (4) Microcytic anemia: Status: Acute Plan 73-year-old female with a PMH significant for?left hip replacement not currently home meds who presents to the ED with?anorexia, nausea, vomiting, and abdominal pain x1 week. Pt will be admitted to the hospital for treatment and further evaluation of possible SBO in the setting colonic mass. Abdominal pain with nausea and vomiting Likely due to partial small-bowel obstruction likely due to abnormal thickening mid to distal sigmoid colon. NG tube placed last night with no significant output/continue IV fluids scheduled for flexible sigmoidoscopy with biopsy today NPO for now, follow labs and clinical course Acute hypokalemia likely due to GI loss and due to IV fluids, will replete and follow labs.. Acute on chronic Microcytic anemia Likely secondary to colon mass/no acute GI blood loss noted iron profile showed low iron saturation Will transfuse 1 unit and give iron infusion follow CBC Lower leg edema Unclear etiology, likely venous insufficiency, elevated BNP no evidence of CHF, chest x-ray benign Follow clinical course/teds Full Code DVT Prophylaxis: Pneumatic boots Pt will require continued inpatient hospitalization for further testing including sigmoidoscopy and expert consultation Quality Stroke Does the patient have a stroke diagnosis?: No VTE Prior VTE?: No VTE Risk Level:: Medical - moderate - high VTE Device Contraindication: N/A - Device Ordered VTE Drug Contraindication: Treatment Not Indicated
--- NOTE | 2024-03-17 13:36 | P.CONAN_ITS ---
FORMERLY [facility] Active Problems Active Problems: All Active Problems Mass of colon (Acute) Partial obstruction of small intestine (Acute) Rectal mass (Acute) Microcytic anemia (Acute) Constipation (Acute) Abdominal pain (Acute) Past Medical History Patient : No Family History Family history of problems with anesthesia: No Surgical History Surgical History History of total left hip arthroplasty History of Problems with Anesthesia: No Social History Social History Household Members: Spouse Housing: Apartment Do you presently have visiting nurse or other home services: No Patient Tobacco Use Status: Never used Tobacco Smoked in Last 30 Days: No Use of substances other than those prescribed or required for medical reasons: No Currently Displaying Signs/Symptoms of Drug Intoxication Withdrawal: No Have you been hit, kicked, punched, or otherwise hurt by someone within the past year? If so, by whom?: No Do you feel safe in your current relationship?: Yes Is there a partner from a previous relationship who is making you feel unsafe now?: No Are you made to feel afraid or neglected: No Advance Directives: No Advance Directives Information Provided: No Do you have a plan to hurt others: No Plan Recently lost weight without trying: Unsure How much weight loss: Not applicable Eating poorly because of decreased appetite: Yes Nutrition screen score: 3 Nutrition Risks: Poor intake 0-25% >4 days Patient : No : No Poor oral hygiene: No service: No Meds Allergies Allergy/AdvReac Type Severity Reaction Status Date / Time No Known Allergies Allergy Verified 03/15/24 22:27 Active Medications: Current Medications Potassium Cl/Dextrose/Lact Ringer's (Kcl 20 Meq In 5 % Dex/Lact Rin) 20 meq in 1,000 mls @ 60 mls/hr IVCONT .[id number] JANINA Last Infusion: 03/17/24 12:51 Dose: 0 mls/hr Morphine Sulfate (Morphine Sulfate 4 Mg/Ml Cartridge) 2 mg IVPUSH Q4H PRN; Protocol PRN Reason: Pain, Severe (Pain Scale 7-10) Last Admin: 03/17/24 10:25 Dose: 2 mg Ondansetron HCl (Ondansetron Hcl 4 Mg/2 Ml Vial) 4 mg IVPUSH Q8H PRN PRN Reason: Nausea and Vomiting Sodium Chloride (0.9 % Sodium Chloride Flush 3 Ml Syringe) 3 ml IVFLUSH QSHIFT ON LICENSE OF [facility] Last Admin: 03/17/24 07:05 Dose: Not Given Home Medications ?Medication ?Instructions ?Recorded ?Confirmed ?Last Taken ?Type No Known Home Meds 03/16/24 03/16/24 Unknown History Exam Height,Weight and Vital Signs: Height 5 ft 3 in Weight 56.699 kg Last Vital Signs Temp 98.5 F 03/17/24 11:25 Pulse 74 03/17/24 11:25 Resp 17 03/17/24 11:25 BP 133/68 03/17/24 11:25 Pulse Ox 94 03/17/24 07:53 O2 Del Method Room Air 03/17/24 07:53 Pertinent Lab Results Pertinent Lab Results: Laboratory Tests 03/15/24 03/16/24 03/17/24 22:35 05:20 05:56 WBC 7.6 RBC 3.62 L Hgb 8.2 L Hct 27.1 L MCV 74.9 L MCH 22.7 L MCHC 30.3 L RDW 18.3 H Plt Count 493 H MPV 8.7 L Immature Gran % (Auto) 0.4 Neut % (Auto) 80.4 H Lymph % (Auto) 9.3 L [place] % (Auto) 9.8 Eos % (Auto) 0.0 Baso % (Auto) 0.1 Lymph # (Auto) 0.7 L [place] # (Auto) 0.8 Eos # (Auto) 0.0 Baso # (Auto) 0.0 Abs Immat Gran (auto) 0.03 Absolute Neuts (auto) 6.1 Absolute Nucleated RBC 0.000 Nucleated RBC % (auto) 0.0 Hold Purple Top PT 13.9 H INR 1.1 Sodium 136 Potassium 3.5 Chloride 98 Carbon Dioxide 20 L Anion Gap 22 H BUN 22 H Creatinine 0.81 Estim Creat Clear Calc 49.6 Estimated GFR > 60 Random Glucose 126 H Calcium 9.2 Iron TIBC % Saturation Unsat Iron Binding Total Bilirubin 0.5 AST 26 ALT 18 Alkaline Phosphatase 107 B-Natriuretic Peptide Total Protein 7.5 Albumin 4.0 Lipase 31 Carcinoembryonic Ag Urine Color Dark Yellow Urine Appearance Clear Urine pH 5.5 Ur Specific [place] >= 1.030 H Urine Protein 30 (1+) H Urine Glucose (UA) Negative Urine Ketones >=160 Urine Blood Negative Urine Nitrite Negative Ur Leukocyte Esterase Trace H Urine RBC 0-2 Urine WBC 0-5 Ur Squamous Epith Cells 0-2 Urine Bacteria None Seen Hyaline Casts 0-2 COVID-19 (RAHUL) Negative COVID-19 Clin Com See Note Blood Type Antibody Screen Crossmatch 03/17/24 03/17/24 07:44 09:09 WBC 7.7 RBC 3.28 L Hgb 7.5 L Hct 25.1 L MCV 76.5 L MCH 22.9 L MCHC 29.9 L RDW 18.4 H Plt Count 355 D MPV 8.7 L Immature Gran % (Auto) 0.5 H Neut % (Auto) 73.5 H Lymph % (Auto) 9.8 L [place] % (Auto) 16.1 H Eos % (Auto) 0.0 Baso % (Auto) 0.1 Lymph # (Auto) 0.8 L [place] # (Auto) 1.2 Eos # (Auto) 0.0 Baso # (Auto) 0.0 Abs Immat Gran (auto) 0.04 H Absolute Neuts (auto) 5.6 Absolute Nucleated RBC 0.000 Nucleated RBC % (auto) 0.0 Hold Purple Top SEE NOTE PT INR Sodium 141 Potassium 2.7 L* D Chloride 108 Carbon Dioxide 26 Anion Gap 10 L BUN 9 Creatinine 0.65 Estim Creat Clear Calc 61.8 Estimated GFR > 60 Random Glucose 143 H Calcium 8.3 L D Iron 10 L TIBC 296 % Saturation 3 L Unsat Iron Binding 286 Total Bilirubin AST ALT Alkaline Phosphatase B-Natriuretic Peptide 573 H Total Protein Albumin Lipase Carcinoembryonic Ag 5.90 Urine Color Urine Appearance Urine pH Ur Specific [place] Urine Protein Urine Glucose (UA) Urine Ketones Urine Blood Urine Nitrite Ur Leukocyte Esterase Urine RBC Urine WBC Ur Squamous Epith Cells Urine Bacteria Hyaline Casts COVID-19 (RAHUL) COVID-19 Clin Com Blood Type B Positive Antibody Screen NEGATIVE Crossmatch See Detail Airway TM Dist: >3cm Neck ROM: Full (NGT in situ) Heart: RRR Lungs: CTA Assessment and Plan Assessment Anesthesia Assessment: Anesthesia Plan Discussed Final Anesthetic Review Family History of Problems with Anesthesia: No History of Problems with Anesthesia: No NPO: Yes ASA Class: III and Emergency Final Preanesthetic Review: Meds/Allgs Chart Reviewed, Consent Obtained/Reviewed and Anes Risks/Benef Reviewed Patient Risk: Intermediate Procedure Risk: Low Anesthetic Plan Anesthetic Plan: MAC: Disposition: Standard PACU
--- NOTE | 2024-03-17 14:01 | HO.ANESPROP2 ---
FORMERLY [facility], [facility] Active Problems Active Problems: All Active Problems Mass of colon (Acute) Partial obstruction of small intestine (Acute) Rectal mass (Acute) Microcytic anemia (Acute) Constipation (Acute) Abdominal pain (Acute) Family History Family history of problems with anesthesia: No Surgical History Surgical History History of total left hip arthroplasty History of Problems with Anesthesia: No Social History Social History Household Members: Spouse Housing: Apartment Do you presently have visiting nurse or other home services: No Patient Tobacco Use Status: Never used Tobacco Smoked in Last 30 Days: No Use of substances other than those prescribed or required for medical reasons: No Currently Displaying Signs/Symptoms of Drug Intoxication Withdrawal: No Have you been hit, kicked, punched, or otherwise hurt by someone within the past year? If so, by whom?: No Do you feel safe in your current relationship?: Yes Is there a partner from a previous relationship who is making you feel unsafe now?: No Are you made to feel afraid or neglected: No Advance Directives: No Advance Directives Information Provided: No Do you have a plan to hurt others: No Plan Recently lost weight without trying: Unsure How much weight loss: Not applicable Eating poorly because of decreased appetite: Yes Nutrition screen score: 3 Nutrition Risks: Poor intake 0-25% >4 days Patient : No : No Poor oral hygiene: No service: No Meds Allergies Allergy/AdvReac Type Severity Reaction Status Date / Time No Known Allergies Allergy Verified 03/15/24 22:27 Active Medications: Current Medications Potassium Cl/Dextrose/Lact Ringer's (Kcl 20 Meq In 5 % Dex/Lact Rin) 20 meq in 1,000 mls @ 60 mls/hr IVCONT .[id number] JANINA Last Infusion: 03/17/24 12:51 Dose: 0 mls/hr Morphine Sulfate (Morphine Sulfate 4 Mg/Ml Cartridge) 2 mg IVPUSH Q4H PRN; Protocol PRN Reason: Pain, Severe (Pain Scale 7-10) Last Admin: 03/17/24 10:25 Dose: 2 mg Ondansetron HCl (Ondansetron Hcl 4 Mg/2 Ml Vial) 4 mg IVPUSH Q8H PRN PRN Reason: Nausea and Vomiting Sodium Chloride (0.9 % Sodium Chloride Flush 3 Ml Syringe) 3 ml IVFLUSH QSHIFT [facility] Last Admin: 03/17/24 07:05 Dose: Not Given Home Medications ?Medication ?Instructions ?Recorded ?Confirmed ?Last Taken ?Type No Known Home Meds 03/16/24 03/16/24 Unknown History Exam Height,Weight and Vital Signs: Height 5 ft 3 in Weight 56.699 kg Last Vital Signs Temp 101.3 F H 03/17/24 13:48 Pulse 75 03/17/24 13:48 Resp 16 03/17/24 13:48 BP 124/65 03/17/24 13:48 Pulse Ox 94 03/17/24 13:20 O2 Del Method Room Air 03/17/24 13:20 Pertinent Lab Results Pertinent Lab Results: Laboratory Tests 03/15/24 03/16/24 03/17/24 22:35 05:20 05:56 WBC 7.6 RBC 3.62 L Hgb 8.2 L Hct 27.1 L MCV 74.9 L MCH 22.7 L MCHC 30.3 L RDW 18.3 H Plt Count 493 H MPV 8.7 L Immature Gran % (Auto) 0.4 Neut % (Auto) 80.4 H Lymph % (Auto) 9.3 L [place] % (Auto) 9.8 Eos % (Auto) 0.0 Baso % (Auto) 0.1 Lymph # (Auto) 0.7 L [place] # (Auto) 0.8 Eos # (Auto) 0.0 Baso # (Auto) 0.0 Abs Immat Gran (auto) 0.03 Absolute Neuts (auto) 6.1 Absolute Nucleated RBC 0.000 Nucleated RBC % (auto) 0.0 Hold Purple Top PT 13.9 H INR 1.1 Sodium 136 Potassium 3.5 Chloride 98 Carbon Dioxide 20 L Anion Gap 22 H BUN 22 H Creatinine 0.81 Estim Creat Clear Calc 49.6 Estimated GFR > 60 Random Glucose 126 H Calcium 9.2 Iron TIBC % Saturation Unsat Iron Binding Total Bilirubin 0.5 AST 26 ALT 18 Alkaline Phosphatase 107 B-Natriuretic Peptide Total Protein 7.5 Albumin 4.0 Lipase 31 Carcinoembryonic Ag Urine Color Dark Yellow Urine Appearance Clear Urine pH 5.5 Ur Specific [place] >= 1.030 H Urine Protein 30 (1+) H Urine Glucose (UA) Negative Urine Ketones >=160 Urine Blood Negative Urine Nitrite Negative Ur Leukocyte Esterase Trace H Urine RBC 0-2 Urine WBC 0-5 Ur Squamous Epith Cells 0-2 Urine Bacteria None Seen Hyaline Casts 0-2 COVID-19 (RAHUL) Negative COVID-19 Clin Com See Note Blood Type Antibody Screen Crossmatch 03/17/24 03/17/24 07:44 09:09 WBC 7.7 RBC 3.28 L Hgb 7.5 L Hct 25.1 L MCV 76.5 L MCH 22.9 L MCHC 29.9 L RDW 18.4 H Plt Count 355 D MPV 8.7 L Immature Gran % (Auto) 0.5 H Neut % (Auto) 73.5 H Lymph % (Auto) 9.8 L [place] % (Auto) 16.1 H Eos % (Auto) 0.0 Baso % (Auto) 0.1 Lymph # (Auto) 0.8 L [place] # (Auto) 1.2 Eos # (Auto) 0.0 Baso # (Auto) 0.0 Abs Immat Gran (auto) 0.04 H Absolute Neuts (auto) 5.6 Absolute Nucleated RBC 0.000 Nucleated RBC % (auto) 0.0 Hold Purple Top SEE NOTE PT INR Sodium 141 Potassium 2.7 L* D Chloride 108 Carbon Dioxide 26 Anion Gap 10 L BUN 9 Creatinine 0.65 Estim Creat Clear Calc 61.8 Estimated GFR > 60 Random Glucose 143 H Calcium 8.3 L D Iron 10 L TIBC 296 % Saturation 3 L Unsat Iron Binding 286 Total Bilirubin AST ALT Alkaline Phosphatase B-Natriuretic Peptide 573 H Total Protein Albumin Lipase Carcinoembryonic Ag 5.90 Urine Color Urine Appearance Urine pH Ur Specific [place] Urine Protein Urine Glucose (UA) Urine Ketones Urine Blood Urine Nitrite Ur Leukocyte Esterase Urine RBC Urine WBC Ur Squamous Epith Cells Urine Bacteria Hyaline Casts COVID-19 (RAHUL) COVID-19 Clin Com Blood Type B Positive Antibody Screen NEGATIVE Crossmatch See Detail Airway Mallampati Class: II TM Dist: >3cm Neck ROM: Full Heart: RRR Lungs: CTA Assessment and Plan Assessment Anesthesia Assessment: Anesthesia Plan Discussed Final Anesthetic Review Family History of Problems with Anesthesia: No History of Problems with Anesthesia: No NPO: Yes ASA Class: III and Emergency Final Preanesthetic Review: Meds/Allgs Chart Reviewed, Consent Obtained/Reviewed and Anes Risks/Benef Reviewed Patient Risk: Intermediate Procedure Risk: Low Anesthetic Plan Anesthetic Plan: MAC: Disposition: Standard PACU
--- NOTE | 2024-03-17 14:24 | PC.NURSE ---
Upon intake of pt, temporal temperature was elevated. Comparison to history was not normal. Blood running since 1110 per floor RNAllie. Lung sounds clear. [place] pt forehead and neck which was warm to touch. Oral temp taken and within normal limits. Called blood bank and proceeded with transfusion reaction protocol. Floor charge nurse came to pt bedside and explained pt temperatio
--- NOTE | 2024-03-17 14:27 | PC.NURSE ---
Upon intake of patient, temporal temperature elevated. Lung sounds clear throughout, skin temp warm to touch at patient's forehead and neck. Oral temp checked and WNL. Anesthesia aware and validating to consider elevation as reaction. Called blood bank and proceeded with transfusion reaction protocol.
[2024-03-17 14:50] LABS: Potassium 3.1 mmol/L (3.3-5.1)
--- NOTE | 2024-03-17 15:23 | PM.OP ---
Brief Operative Note Date of Service: 03/17/24 Pre-op diagnosis: Colon mass with obstruction Post-op diagnosis: other (Obstructing distal sigmoid mass, Rectal polyp) Procedure: Flex sig to between 15 and 20cm with biopsies of distal sigmoid mass, and hot snare polypectomy of rectal polyp with submucosal ink marking and placement of 3 Resolution clips Surgeon: Filiberto Chu MD Anesthesia: MAC Was an Stock Controller used for this Procedure?: No Estimated blood loss (mL): 5.0 Pathology: other (A. Distal sigmoid mass at 15cm B. Rectal polyp) Condition: stable Disposition: PACU
--- NOTE | 2024-03-17 15:34 | PM.EVENT ---
Event Note Date of Service: 03/17/24 Event Note: GI-Flex sig to [id number] note dictated Findings: 1. Obstructing lesion beginning above the rectum at the distal sigmoid colon at approx. 15cm. 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 There was no definitive lumen. Biopsies taken of distal portion of the mass. This was firm and friable tissue. 2. Friable, somewhat ulcerated 15mm polyp in the mid-rectum. Removed by hot snare polypectomy and recovered. Site marked with ink just above and below the polypectomy site. I placed 3 Resolution clips onto the polypectomy site with good deployment and hemostasis. Rec: Check path. Continue NG suction. Will review with family. Surgery per Dr. Rosado, but I do not think we need to wait for the final path given the appearance of the mass and her obstruction. Thanks Time Spent With Patient Time: Total time managing care of this patient today ____ minutes.
--- NOTE | 2024-03-17 16:18 | PM.EVENT ---
Event Note Date of Service: 03/17/24 Event Note: Patient is status post flexible sigmoidoscopy this afternoon by Dr. Chu. Operative findings included an obstructing sigmoid mass starting at approximately 15 cm. Scope unable to be passed beyond this obstruction. Reviewed the findings in detail with the patient and her daughter this afternoon. Patient will need a sigmoid colectomy with descending colostomy. I recommended a hand assisted laparoscopic sigmoid colectomy and descending colostomy, and after discussion of the procedure, risks, and alternatives, she consents to the surgery. She will be added onto the operative schedule for tomorrow. We will continue NG tube decompression pending this procedure. Time Spent With Patient Time: Total time managing care of this patient today ____ minutes.
--- NOTE | 2024-03-17 16:38 | PC.NURSE ---
pt sent to Short stay with 1 unit PRBC running. upon return to unit at 1530 blood no longer running. Blood not discontinued in [facility]. Spoke to Alexandro in blood bank.
--- NOTE | 2024-03-17 16:42 | OP_ITS ---
DATE OF SERVICE: 03/17/2024 SURGEON: Filiberto Chu MD INDICATIONS: The patient presents for evaluation of obstructing colon mass. Full consent has been obtained from her via a biomedical scientist, including risks of bleeding and perforation. PREOPERATIVE DIAGNOSIS: Obstructing sigmoid mass. POSTOPERATIVE DIAGNOSIS: PROCEDURE PERFORMED: Flexible sigmoidoscopy to between 15 and 20 cm with biopsies, hot snare polypectomy, and placement of 3 Resolution clips ESTIMATED BLOOD LOSS: COMPLICATIONS: ANESTHESIA: Monitored anesthesia care. ASSISTANTS: SPECIMENS: POSTOPERATIVE DIAGNOSES: Obstructing sigmoid mass, rectal polyp, internal hemorrhoids. DESCRIPTION OF PROCEDURE: The patient was placed in the left lateral decubitus position. The digital rectal exam revealed no abnormalities. The Olympus video pediatric colonoscope was then entered into the rectum and advanced to 15 cm. Just above this level, I was able to advance another several cm, but there was an obstructing lesion with no visible lumen. The tissue was quite consistent with neoplasm. The tissue was very friable, firm, and ulcerated. The distal portion of the mass was biopsied. I could not find the lumen to try to get past to try to decompress the more proximal bowel. The lesion itself did appear to definitely be above the rectum. The scope was withdrawn back in the rectum. In the mid rectum was a friable and somewhat ulcerated approximately 15 mm polypoid lesion. This was removed in piecemeal fashion by hot snare polypectomy and recovered by suction and withdrawing the larger piece out of the patient. The scope was advanced back to the polypectomy site. This appeared clean, without any sign of residual polyp nor bleeding. I did place 3 Resolution clips onto the polypectomy site, which appeared to be a short residual stalk. I did deploy 4 clips, but only 3 remained onto the polypectomy site. However, there was otherwise good deployment and good hemostasis. Given the gross appearance of the polyp, I did place a submucosal ink bridgett just above and below the polypectomy site as well. The remainder of the rectum both in the forward viewing and retroflexed positions appeared normal, other than some internal hemorrhoids. The scope was straightened and withdrawn from the patient. She tolerated the procedure well and was returned to the recovery area in stable condition. IMPRESSION: 1. Obstructing sigmoid lesion, status post biopsy. 2. Rectal polyp, status post hot snare polypectomy, with placement of 3 Resolution clips and submucosal ink marking. 3. Internal hemorrhoids. PLAN: The results of the pathology will be checked. However, at this point, I would not wait for the biopsies given the gross appearance of the sigmoid lesion and her obstruction. I would be in favor of surgical intervention to place a diverting colostomy and possibly remove the lesion as well. At some point, depending upon her clinical course, she would need a full colonoscopy to rule out any more proximal lesions. Again, if she is doing well, we could do this through her colostomy prior to any planned reversal of the colostomy. This has all been discussed with the patient's family as well as with the patient herself. MD ELLY Yin/GONSALO / [id number] MTDVel
[2024-03-17 16:51] LABS: Urine Hemoglobin Negative
[2024-03-17] MEDS: 0.9 % Sodium Chloride Flush 3 ML SYRINGE IVFLUSH ×2 (17:47→22:33)
[2024-03-17] MEDS: Famotidine/PF 20 MG/2 ML VIAL IVPUSH (22:31)
[2024-03-18] VITALS (9 sets, daily range): BP systolic 139–162; BP diastolic 66–78; PULSE 65–86; RESP 12–18; TEMP 36.1–37.1; O2SAT 92–100
[2024-03-18] MEDS: Morphine Sulfate 4 MG/ML CARTRIDGE 2 MG IVPUSH ×2 (00:04→16:04)
[2024-03-18 05:50] LABS: Hematocrit 29.1 % (37.0-47.0); Hemoglobin 8.9 g/dl (12.0-16.0); Mean Corpuscular HGB Conc 30.6 g/dl (31.0-35.0); Mean Corpuscular Hemoglobin 23.7 pg (27.0-33.0); Mean Corpuscular Volume 77.6 fL (80.0-98.0); Mean Platelet Volume 8.9 fL (9.4-12.3); Platelet Count 337 X10*3/uL (160-400); Red Blood Count 3.75 X10*6/uL (4.20-5.50); Red Cell Distribution Width 18.6 % (11.0-16.0); White Blood Count 7.5 X10*3/uL (4.8-10.8)
[2024-03-18 06:15] LABS: Anion Gap 12 (12-20); Blood Urea Nitrogen 6 mg/dL (9-16); Calcium 8.1 mg/dL (8.4-10.2); Carbon Dioxide 25 mmol/L (22-29); Chloride 105 mmol/L (96-108); Creatinine Clr Calc Pharmacy 70.5; Estimated Glomerular Filt Rate > 60; Glucose Random 104 mg/dL (60-115); Potassium 2.9 mmol/L (3.3-5.1); Sodium 139 mmol/L (135-145)
--- NOTE | 2024-03-18 06:16 | MHC.PIE ---
p; potassium 2.9 i; dr ventura notified e; will cont to monitor
[2024-03-18] MEDS: Potassium Chloride/H20 10 MEQ/100 ML PIGGYBACK 100 MEQ IV ×4 (07:28→11:20)
--- NOTE | 2024-03-18 07:50 | P.PNGS_ITS ---
Subjective Subjective Date of Service: 03/18/24 Interval history: Patient resting comfortably at this time Physical Exam 2 Vital Signs: Vital Signs: Last Vital Signs Temp 97.8 F 03/18/24 07:00 Pulse 69 03/18/24 07:00 Resp 16 03/18/24 07:00 BP 139/66 03/18/24 07:00 Pulse Ox 95 03/18/24 07:00 O2 Del Method Room Air 03/18/24 07:00 O2 Flow Rate 8 03/17/24 15:15 BMI result Body Mass Index 22.1 Const: General: tired appearing Nutritional Appearance: thin O rientation/consciousness: patient oriented x3 Resp: Effort & Inspection: normal respiratory effort GI: Other: Markedly distended abdomen, tympany to percussion Skin: Other: Warm, dry Neuro: General: patient oriented x3 Extrem: Other: No edema Objective Data Active Medications Famotidine (Famotidine/Pf 20 Mg/2 Ml Vial) 20 mg IVPUSH BID [facility] Last Admin: 03/17/24 22:31 Dose: 20 mg Documented By: IRASEMA Potassium Cl/Dextrose/Lact Ringer's (Kcl 20 Meq In 5 % Dex/Lact Rin) 20 meq in 1,000 mls @ 60 mls/hr IVCONT .[id number] [facility] Last Admin: 03/17/24 22:46 Dose: Not Given Documented By: IRASEMA Non-Admin Reason: IV Running Potassium Chloride (Potassium Chloride/H20) 10 meq in 100 mls @ 100 mls/hr IV Q1H [facility] Stop: 03/18/24 10:29 Last Admin: 03/18/24 07:28 Dose: 100 mls/hr Documented By: DOMO Morphine Sulfate (Morphine Sulfate 4 Mg/Ml Cartridge) 2 mg IVPUSH Q4H PRN; Protocol PRN Reason: Pain, Severe (Pain Scale 7-10) Last Admin: 03/18/24 00:04 Dose: 2 mg Documented By: IRASEMA Ondansetron HCl (Ondansetron Hcl 4 Mg/2 Ml Vial) 4 mg IVPUSH Q8H PRN PRN Reason: Nausea and Vomiting Sodium Chloride (0.9 % Sodium Chloride Flush 3 Ml Syringe) 3 ml IVFLUSH QSHIFT [facility] Last Admin: 03/17/24 22:33 Dose: 3 ml Documented By: IRASEMA Labs 03/18/24 05:22 03/18/24 05:22 Labs: Laboratory Results - last 24 hr 03/17/24 03/17/24 03/17/24 07:44 09:09 14:17 MCV 76.5 L MCH 22.9 L MCHC 29.9 L RDW 18.4 H Plt Count 355 D MPV 8.7 L Immature Gran % (Auto) 0.5 H Neut % (Auto) 73.5 H Lymph % (Auto) 9.8 L [place] % (Auto) 16.1 H Eos % (Auto) 0.0 Baso % (Auto) 0.1 Lymph # (Auto) 0.8 L [place] # (Auto) 1.2 Eos # (Auto) 0.0 Baso # (Auto) 0.0 Abs Immat Gran (auto) 0.04 H Absolute Neuts (auto) 5.6 Absolute Nucleated RBC 0.000 Nucleated RBC % (auto) 0.0 Hold Purple Top SEE NOTE Anion Gap 10 L Estim Creat Clear Calc 61.8 Estimated GFR > 60 Random Glucose 143 H Calcium 8.3 L D Iron 10 L TIBC 296 % Saturation 3 L Unsat Iron Binding 286 B-Natriuretic Peptide 573 H Carcinoembryonic Ag 5.90 Urine Hemoglobin Blood Type B Positive Antibody Screen NEGATIVE Crossmatch See Detail Clerical Work Check No Error Found Hemolysis Bld Bag Check None in Pre and Post Icterus Blood Bag Check None in Pre and Post Pre-Trans Blood Type B POSITIVE Post-Trans Blood Type B Positive Post-Trans AMOS Poly NEGATIVE Post-Tx Rxn AMOS Result TNP 03/17/24 03/18/24 16:30 05:22 MCV 77.6 L MCH 23.7 L MCHC 30.6 L RDW 18.6 H Plt Count 337 MPV 8.9 L Immature Gran % (Auto) Neut % (Auto) Lymph % (Auto) [place] % (Auto) Eos % (Auto) Baso % (Auto) Lymph # (Auto) [place] # (Auto) Eos # (Auto) Baso # (Auto) Abs Immat Gran (auto) Absolute Neuts (auto) Absolute Nucleated RBC 0.000 Nucleated RBC % (auto) 0.0 Hold Purple Top Anion Gap 12 Estim Creat Clear Calc 70.5 Estimated GFR > 60 Random Glucose 104 Calcium 8.1 L Iron TIBC % Saturation Unsat Iron Binding B-Natriuretic Peptide Carcinoembryonic Ag Urine Hemoglobin Negative Blood Type Antibody Screen Crossmatch Clerical Work Check Hemolysis Bld Bag Check Icterus Blood Bag Check Pre-Trans Blood Type Post-Trans Blood Type Post-Trans AMOS Poly Post-Tx Rxn AMOS Result Procedures Date of Service Date of Service: 03/18/24 Progress Note: A&P Assessment and plan (1) Colon obstruction: Status: Acute (2) Mass of colon: Status: Acute Plan 73-year-old female patient presenting with abdominal distension found by a flexible sigmoidoscopy to have an obstructing sigmoid mass starting at approximately 15 cm. The findings were reviewed in detail with the patient and her daughter. Patient will require sigmoid resection to relieve obstruction. In the face of complete obstruction, colorectal anastomosis would be unwise therefore I have recommended Filippo procedure with resection of sigmoid tumor and end colostomy. After discussion of the procedure, risks and alternatives, she consents to the procedure. She has been added onto the operative schedule for today. Time Spent With Patient Time: Total time managing care of this patient today ____ minutes. Quality Stroke Does the patient have a stroke diagnosis?: No VTE Prior VTE?: No VTE Risk Level:: Medical - moderate - high VTE Device Contraindication: N/A - Device Ordered VTE Drug Contraindication: Treatment Not Indicated
[2024-03-18] MEDS: Famotidine/PF 20 MG/2 ML VIAL IVPUSH ×2 (08:59→19:45)
[2024-03-18 09:06] LABS: MANUAL DIFF FLAG NO
[2024-03-18 09:16] LABS: Basophils Percent Auto 0.1 % (0-2); Eosinophils Percent Auto 0.1 % (0-4); Hematocrit 28.9 % (37.0-47.0); Hemoglobin 8.7 g/dl (12.0-16.0); Imm Gran Abs Auto 0.02 X10*3/uL (0.00-0.03); Imm Gran Pct Auto 0.3 % (0.0-0.4); Lymphocytes Absolute Auto 0.8 X10*3/uL (1.2-4.9); Lymphocytes Percent Auto 10.8 % (20-40); Mean Corpuscular HGB Conc 30.1 g/dl (31.0-35.0); Mean Corpuscular Hemoglobin 23.9 pg (27.0-33.0); Mean Corpuscular Volume 79.4 fL (80.0-98.0); Mean Platelet Volume 9.3 fL (9.4-12.3); Monocytes Percent Auto 14.4 % (2-11); Neutrophils Absolute Auto 5.3 x10*3/uL (2.0-8.3); Neutrophils Percent Auto 74.3 % (45-73); Platelet Count 351 X10*3/uL (160-400); Red Blood Count 3.64 X10*6/uL (4.20-5.50); Red Cell Distribution Width 18.6 % (11.0-16.0); White Blood Count 7.2 X10*3/uL (4.8-10.8)
--- NOTE | 2024-03-18 09:43 | HO.POSTANES ---
Post Anesthesia Evaluation Post Anesthesia Evaluation Date of Service: 03/17/24 Vital Signs: Vital Signs Temp Pulse Resp BP Pulse Ox O2 Del Method 03/18/24 07:00 97.8 F 69 16 139/66 95 Room Air 03/18/24 03:41 98.7 F 70 18 146/72 H 92 Room Air Anesthesia: Monitored Mental Status: Awake Pain Control: Satisfactory Nausea/Vomiting: None Hydration: Adequate Anesthesia-Related Issues: No Anes. Related Issues
--- NOTE | 2024-03-18 09:51 | MHC.CM.PN ---
Addendum entered by Conchis Rodriguez 03/18/24 11:41: CM SPOKE WITH DAUGHTER WHO WOULD LIKE HER MOTHER TO HAVE A PCP WITHIN [facility] [place] [place] PROVIDED. Addendum entered by Conchis Rodriguez 03/18/24 10:45: EMR REVIEWED AND PER MD ROUNDS, PT WILL HAVE SURGERY TODAY(SUSI'S PROCEDURE) CM WILL CONTINUE TO FOLLOW FOR ANY CHANGE TO DC PLAN/NEEDS. PT WILL BE UNABLE TO HAVE A VNA DUE TO NO ACTIVE PCP. Original Note: CM CALLED [facility] AND PT IS NOT ACTIVE WITH A PCP, PER PRACTICE, PT HAS CANCELLED 4 NEW PT APPOINTMENTS.
--- NOTE | 2024-03-18 11:37 | PC.NURSE ---
ngtube clamped pt a/ox3 resting comfortable repositioned for comfort
--- NOTE | 2024-03-18 11:47 | HO.ANESPROP2 ---
[facility] Active Problems Active Problems: All Active Problems (Updated 03/18/24 @ 07:52 by Earl Bryant MD) Colon obstruction (Acute) Mass of colon (Acute) Partial obstruction of small intestine (Acute) Rectal mass (Acute) Microcytic anemia (Acute) Constipation (Acute) Abdominal pain (Acute) Family History Family history of problems with anesthesia: No Surgical History Surgical History History of total left hip arthroplasty History of Problems with Anesthesia: No Social History Social History Household Members: Spouse Housing: Apartment Do you presently have visiting nurse or other home services: No Patient Tobacco Use Status: Never used Tobacco Smoked in Last 30 Days: No Use of substances other than those prescribed or required for medical reasons: No Currently Displaying Signs/Symptoms of Drug Intoxication Withdrawal: No Have you been hit, kicked, punched, or otherwise hurt by someone within the past year? If so, by whom?: No Do you feel safe in your current relationship?: Yes Is there a partner from a previous relationship who is making you feel unsafe now?: No Are you made to feel afraid or neglected: No Advance Directives: No Advance Directives Information Provided: No Do you have a plan to hurt others: No Plan Recently lost weight without trying: Unsure How much weight loss: Not applicable Eating poorly because of decreased appetite: Yes Nutrition screen score: 3 Nutrition Risks: Poor intake 0-25% >4 days Patient : No : No Poor oral hygiene: No service: No Meds Allergies Allergy/AdvReac Type Severity Reaction Status Date / Time No Known Allergies Allergy Verified 03/15/24 22:27 Active Medications: Current Medications Famotidine (Famotidine/Pf 20 Mg/2 Ml Vial) 20 mg IVPUSH BID [facility] Last Admin: 03/18/24 08:59 Dose: 20 mg Potassium Cl/Dextrose/Lact Ringer's (Kcl 20 Meq In 5 % Dex/Lact Rin) 20 meq in 1,000 mls @ 60 mls/hr IVCONT .[id number] [facility] Last Infusion: 03/18/24 10:16 Dose: Infused Morphine Sulfate (Morphine Sulfate 4 Mg/Ml Cartridge) 2 mg IVPUSH Q4H PRN; Protocol PRN Reason: Pain, Severe (Pain Scale 7-10) Last Admin: 03/18/24 00:04 Dose: 2 mg Ondansetron HCl (Ondansetron Hcl 4 Mg/2 Ml Vial) 4 mg IVPUSH Q8H PRN PRN Reason: Nausea and Vomiting Sodium Chloride (0.9 % Sodium Chloride Flush 3 Ml Syringe) 3 ml IVFLUSH QSHIFT JANINA Last Admin: 03/18/24 09:02 Dose: Not Given Home Medications ?Medication ?Instructions ?Recorded ?Confirmed ?Last Taken ?Type No Known Home Meds 03/16/24 03/16/24 Unknown History Exam Height,Weight and Vital Signs: k Height 5 ft 3 in Weight 56.699 kg Last Vital Signs Temp 97.8 F 03/18/24 07:00 Pulse 69 03/18/24 07:00 Resp 16 03/18/24 07:00 BP 139/66 03/18/24 07:00 Pulse Ox 95 03/18/24 07:00 O2 Del Method Room Air 03/18/24 07:00 O2 Flow Rate 8 03/17/24 15:15 Pertinent Lab Results Pertinent Lab Results: Laboratory Tests 03/15/24 03/16/24 03/17/24 22:35 05:20 05:56 WBC 7.6 RBC 3.62 L Hgb 8.2 L Hct 27.1 L MCV 74.9 L MCH 22.7 L MCHC 30.3 L RDW 18.3 H Plt Count 493 H MPV 8.7 L Immature Gran % (Auto) 0.4 Neut % (Auto) 80.4 H Lymph % (Auto) 9.3 L Spencer % (Auto) 9.8 Eos % (Auto) 0.0 Baso % (Auto) 0.1 Lymph # (Auto) 0.7 L Spencer # (Auto) 0.8 Eos # (Auto) 0.0 Baso # (Auto) 0.0 Abs Immat Gran (auto) 0.03 Absolute Neuts (auto) 6.1 Absolute Nucleated RBC 0.000 Nucleated RBC % (auto) 0.0 Hold Purple Top PT 13.9 H INR 1.1 Sodium 136 Potassium 3.5 Chloride 98 Carbon Dioxide 20 L Anion Gap 22 H BUN 22 H Creatinine 0.81 Estim Creat Clear Calc 49.6 Estimated GFR > 60 Random Glucose 126 H Calcium 9.2 Iron TIBC % Saturation Unsat Iron Binding Total Bilirubin 0.5 AST 26 ALT 18 Alkaline Phosphatase 107 B-Natriuretic Peptide Total Protein 7.5 Albumin 4.0 Lipase 31 Carcinoembryonic Ag Urine Color Dark Yellow Urine Appearance Clear Urine pH 5.5 Ur Specific [place] >= 1.030 H Urine Protein 30 (1+) H Urine Glucose (UA) Negative Urine Ketones >=160 Urine Hemoglobin Urine Blood Negative Urine Nitrite Negative Ur Leukocyte Esterase Trace H Urine RBC 0-2 Urine WBC 0-5 Ur Squamous Epith Cells 0-2 Urine Bacteria None Seen Hyaline Casts 0-2 COVID-19 (RAHUL) Negative COVID-19 Clin Com See Note Blood Type Antibody Screen Crossmatch Clerical Work Check Hemolysis Bld Bag Check Icterus Blood Bag Check Pre-Trans Blood Type Post-Trans Blood Type Post-Trans AMOS Poly Post-Tx Rxn AMOS Result 03/17/24 03/17/24 03/17/24 07:44 09:09 14:17 WBC 7.7 RBC 3.28 L Hgb 7.5 L Hct 25.1 L MCV 76.5 L MCH 22.9 L MCHC 29.9 L RDW 18.4 H Plt Count 355 D MPV 8.7 L Immature Gran % (Auto) 0.5 H Neut % (Auto) 73.5 H Lymph % (Auto) 9.8 L Spencer % (Auto) 16.1 H Eos % (Auto) 0.0 Baso % (Auto) 0.1 Lymph # (Auto) 0.8 L Spencer # (Auto) 1.2 Eos # (Auto) 0.0 Baso # (Auto) 0.0 Abs Immat Gran (auto) 0.04 H Absolute Neuts (auto) 5.6 Absolute Nucleated RBC 0.000 Nucleated RBC % (auto) 0.0 Hold Purple Top SEE NOTE PT INR Sodium 141 Potassium 2.7 L* D 3.1 L Chloride 108 Carbon Dioxide 26 Anion Gap 10 L BUN 9 Creatinine 0.65 Estim Creat Clear Calc 61.8 Estimated GFR > 60 Random Glucose 143 H Calcium 8.3 L D Iron 10 L TIBC 296 % Saturation 3 L Unsat Iron Binding 286 Total Bilirubin AST ALT Alkaline Phosphatase B-Natriuretic Peptide 573 H Total Protein Albumin Lipase Carcinoembryonic Ag 5.90 Urine Color Urine Appearance Urine pH Ur Specific [place] Urine Protein Urine Glucose (UA) Urine Ketones Urine Hemoglobin Urine Blood Urine Nitrite Ur Leukocyte Esterase Urine RBC Urine WBC Ur Squamous Epith Cells Urine Bacteria Hyaline Casts COVID-19 (RAHUL) COVID-19 Clin Com Blood Type B Positive Antibody Screen NEGATIVE Crossmatch See Detail Clerical Work Check No Error Found Hemolysis Bld Bag Check None in Pre and Post Icterus Blood Bag Check None in Pre and Post Pre-Trans Blood Type B POSITIVE Post-Trans Blood Type B Positive Post-Trans AMOS Poly NEGATIVE Post-Tx Rxn AMOS Result TNP 03/17/24 03/18/24 03/18/24 16:30 05:22 07:14 WBC 7.5 7.2 RBC 3.75 L 3.64 L Hgb 8.9 L 8.7 L Hct 29.1 L 28.9 L MCV 77.6 L 79.4 L MCH 23.7 L 23.9 L MCHC 30.6 L 30.1 L RDW 18.6 H 18.6 H Plt Count 337 351 MPV 8.9 L 9.3 L Immature Gran % (Auto) 0.3 Neut % (Auto) 74.3 H Lymph % (Auto) 10.8 L Spencer % (Auto) 14.4 H Eos % (Auto) 0.1 Baso % (Auto) 0.1 Lymph # (Auto) 0.8 L Spencer # (Auto) 1.0 Eos # (Auto) 0.0 Baso # (Auto) 0.0 Abs Immat Gran (auto) 0.02 Absolute Neuts (auto) 5.3 Absolute Nucleated RBC 0.000 0.000 Nucleated RBC % (auto) 0.0 0.0 Hold Purple Top PT INR Sodium 139 Potassium 2.9 L* Chloride 105 Carbon Dioxide 25 Anion Gap 12 BUN 6 L Creatinine 0.57 Estim Creat Clear Calc 70.5 Estimated GFR > 60 Random Glucose 104 Calcium 8.1 L Iron TIBC % Saturation Unsat Iron Binding Total Bilirubin AST ALT Alkaline Phosphatase B-Natriuretic Peptide Total Protein Albumin Lipase Carcinoembryonic Ag Urine Color Urine Appearance Urine pH Ur Specific [place] Urine Protein Urine Glucose (UA) Urine Ketones Urine Hemoglobin Negative Urine Blood Urine Nitrite Ur Leukocyte Esterase Urine RBC Urine WBC Ur Squamous Epith Cells Urine Bacteria Hyaline Casts COVID-19 (RAHUL) COVID-19 Clin Com Blood Type Antibody Screen Crossmatch Clerical Work Check Hemolysis Bld Bag Check Icterus Blood Bag Check Pre-Trans Blood Type Post-Trans Blood Type Post-Trans AMOS Poly Post-Tx Rxn AMOS Result Airway Mallampati Class: II TM Dist: >3cm Neck ROM: Full Denture: Upper Loose/Missing/Broken Teeth: Yes and Lower Assessment and Plan Assessment Anesthesia Assessment: Anesthesia Plan Discussed and Chart Reviewed Final Anesthetic Review Family History of Problems with Anesthesia: No History of Problems with Anesthesia: No NPO: Yes ASA Class: III and Emergency Final Preanesthetic Review: No Changes in Pt Med Stat, Meds/Allgs Chart Reviewed, Consent Obtained/Reviewed and Anes Risks/Benef Reviewed Patient Risk: Intermediate Procedure Risk: Intermediate Anesthetic Plan Anesthetic Plan: GA Disposition: Standard PACU
--- NOTE | 2024-03-18 12:49 | P.PNIM_ITS ---
Subjective Subjective Date of Service: 03/18/24 Interval History: Complaining of persistent abdominal pain, no further episodes of nausea, no vomiting, no fevers, no chills, no other acute events overnight, is NPO for Filippo procedure with resection of sigmoid tumor and end colostomy. Review of Systems All other system reviewed and negative Physical Exam 2 Vital Signs: Vital Signs: Last Vital Signs Temp 97.8 F 03/18/24 07:00 Pulse 69 03/18/24 07:00 Resp 16 03/18/24 07:00 BP 139/66 03/18/24 07:00 Pulse Ox 95 03/18/24 07:00 O2 Del Method Room Air 03/18/24 07:00 O2 Flow Rate 8 03/17/24 15:15 BMI result Body Mass Index 22.1 Const: Other: General alert x3, in no acute distress. Neck supple no JVD. CVS regular rate rhythm, Respiratory lungs clear to auscultation, no respiratory distress, no wheeze, no rhonchi. Gastrointestinal abdomen distended, firm,mid abd. tenderness to palpation, bowel sounds audible, no guarding , no rigidity. Extremities b/l edema improving. Neuro non focal Skin no rash Psych appropriate affect Objective Data Active Medications Famotidine (Famotidine/Pf 20 Mg/2 Ml Vial) 20 mg IVPUSH BID [facility] Last Admin: 03/18/24 08:59 Dose: 20 mg Documented By: DOMO Fentanyl (Fentanyl Citrate/Pf 100 Mcg/2 Ml Vial) 50 mcg IVPUSH Q5M PRN; Protocol PRN Reason: Pain, Severe (Pain Scale 7-10) Stop: 03/18/24 17:49 Potassium Cl/Dextrose/Lact Ringer's (Kcl 20 Meq In 5 % Dex/Lact Rin) 20 meq in 1,000 mls @ 60 mls/hr IVCONT .[id number] [facility] Last Infusion: 03/18/24 10:16 Dose: Infused Documented By: DOMO Morphine Sulfate (Morphine Sulfate 4 Mg/Ml Cartridge) 2 mg IVPUSH Q4H PRN; Protocol PRN Reason: Pain, Severe (Pain Scale 7-10) Last Admin: 03/18/24 00:04 Dose: 2 mg Documented By: IRASEMA Ondansetron HCl (Ondansetron Hcl 4 Mg/2 Ml Vial) 4 mg IVPUSH Q8H PRN PRN Reason: Nausea and Vomiting Ondansetron HCl (Ondansetron Hcl 4 Mg/2 Ml Vial) 4 mg IVPUSH ONCE PRN PRN Reason: Nausea and Vomiting Stop: 03/18/24 17:49 Sodium Chloride (0.9 % Sodium Chloride Flush 3 Ml Syringe) 3 ml IVFLUSH QSHIFT JANINA Last Admin: 03/18/24 09:02 Dose: Not Given Documented By: DOMO Non-Admin Reason: IV Running Labs 03/18/24 07:14 03/18/24 05:22 Labs: Laboratory Results - last 24 hr 03/17/24 03/17/24 03/17/24 09:09 14:17 16:30 MCV MCH MCHC RDW Plt Count MPV Immature Gran % (Auto) Neut % (Auto) Lymph % (Auto) [place] % (Auto) Eos % (Auto) Baso % (Auto) Lymph # (Auto) [place] # (Auto) Eos # (Auto) Baso # (Auto) Abs Immat Gran (auto) Absolute Neuts (auto) Absolute Nucleated RBC Nucleated RBC % (auto) Anion Gap Estim Creat Clear Calc Estimated GFR Random Glucose Calcium Urine Hemoglobin Negative Crossmatch See Detail Clerical Work Check No Error Found Hemolysis Bld Bag Check None in Pre and Post Icterus Blood Bag Check None in Pre and Post Pre-Trans Blood Type B POSITIVE Post-Trans Blood Type B Positive Post-Trans AMOS Poly NEGATIVE Post-Tx Rxn AMOS Result TNP 03/18/24 03/18/24 05:22 07:14 MCV 77.6 L 79.4 L MCH 23.7 L 23.9 L MCHC 30.6 L 30.1 L RDW 18.6 H 18.6 H Plt Count 337 351 MPV 8.9 L 9.3 L Immature Gran % (Auto) 0.3 Neut % (Auto) 74.3 H Lymph % (Auto) 10.8 L [place] % (Auto) 14.4 H Eos % (Auto) 0.1 Baso % (Auto) 0.1 Lymph # (Auto) 0.8 L [place] # (Auto) 1.0 Eos # (Auto) 0.0 Baso # (Auto) 0.0 Abs Immat Gran (auto) 0.02 Absolute Neuts (auto) 5.3 Absolute Nucleated RBC 0.000 0.000 Nucleated RBC % (auto) 0.0 0.0 Anion Gap 12 Estim Creat Clear Calc 70.5 Estimated GFR > 60 Random Glucose 104 Calcium 8.1 L Urine Hemoglobin Crossmatch Clerical Work Check Hemolysis Bld Bag Check Icterus Blood Bag Check Pre-Trans Blood Type Post-Trans Blood Type Post-Trans AMOS Poly Post-Tx Rxn AMOS Result Assessment and Plan (1) Mass of colon: Status: Acute (2) Partial obstruction of small intestine: Status: Acute (3) Rectal mass: Status: Acute (4) Microcytic anemia: Status: Acute Plan 73-year-old female with a PMH significant for?left hip replacement not currently home meds who presents to the ED with?anorexia, nausea, vomiting, and abdominal pain x1 week. Pt will be admitted to the hospital for treatment and further evaluation of possible SBO in the setting colonic mass. Abdominal pain with nausea and vomiting Persistent abdominal pain, no further bouts of nausea vomiting Underwent flexible sigmoidoscopy by Dr. Chu 03/17/24 that showed obstructing sigmoid mass starting at approximately 15 cm NPO scheduled for Filippo procedure with resection of sigmoid tumor and end colostomy NG tube in place no significant output/continue IV fluids Diet as per surgery Acute hypokalemia likely due to GI loss and due to IV fluids, will replete and follow labs.. Acute on chronic Microcytic anemia Likely secondary to colon mass/no acute GI blood loss noted, is status post 1 unit, hematocrit improved and stable around 29 iron profile showed low iron saturation Will need iron supplement Lower leg edema: Improving Unclear etiology, likely venous insufficiency, elevated BNP 573, no evidence of CHF, chest x-ray benign, Follow clinical course/teds Full Code DVT Prophylaxis: Pneumatic boots Pt will require continued inpatient hospitalization for abdominal surgery and close postop monitoring, treatment can not be provided in less acute setting. Quality Stroke Does the patient have a stroke diagnosis?: No VTE Prior VTE?: No VTE Risk Level:: Medical - moderate - high VTE Device Contraindication: N/A - Device Ordered VTE Drug Contraindication: Treatment Not Indicated
--- NOTE | 2024-03-18 14:50 | W.PM.OPN ---
Operative Note Operative Note Date of Service: 03/18/24 Narrative: Preoperative diagnosis: Obstructing sigmoid carcinoma Postoperative diagnosis: Same Procedure: Hand assisted laparoscopic sigmoid resection with end colostomy (Filippo procedure); small-bowel resection Surgeon: Earl Bryant MD [employer] Supervisor: Chayito Lugo PA-C Anesthesia: General ET Indications for procedure: 73-year-old female patient presenting with evidence of a colon obstruction and evidence of a sigmoid mass by CT. Subsequent flexible sigmoidoscopy revealed obstructing mass at approximately 15 cm within the sigmoid colon. Scope was unable to be passed beyond the mass. She presents today for hand assisted laparoscopic sigmoid resection with colostomy. Operative findings: Sigmoid mass measuring approximately 4 cm in length with no invasion of surrounding structures grossly. Transmural defect identified in small-bowel loop. Specimen: Sigmoid colon, small bowel segment Estimated blood loss: 10 mL Complications: None Procedure details: The patient was brought to the OR placed in a supine position. After administering general anesthesia the patient's abdomen was prepped with ChloraPrep and draped in a sterile fashion. A surgical time-out was called and the consent confirmed. Patient received preoperative antibiotics and Venodyne boots were in place. Local anesthesia was infiltrated in the lower midline. A 7.5 cm incision was made in the lower midline and carried out through subcutaneous tissue, past linea alba into the peritoneum. Adhesions were noted within the abdominal cavity were taken down using electrocautery. A hand port was then inserted. The abdomen was insufflated to a pressure 15 mmHg. Upon examination of the abdomen a transmural defect was noted in a loop of small bowel. This was brought out through the incision. A MICHELA stapler was then used to divide above and below the defect. The mesentery was then divided using LigaSure. A functional end-to-end anastomosis was then performed using a MICHELA stapler. The enterotomies were closed using TA 60 stapler. The TA staple line was reinforced using interrupted Lembert 3-0 Surgilon sutures. Mesenteric defect was closed using interrupted 3-0 Surgilon sutures. The crotch of the anastomosis was secured using interrupted 3-0 Surgilon sutures. A 12 mm trocar was placed in the right upper quadrant under direct vision. Two 5 mm trocars were placed 1 in the upper midline and 1 in the left upper quadrant. The patient was then placed in a Trendelenburg position and rotated to the left. Attention was then directed to the sigmoid colon. The sigmoid colon was mobilized along its lateral attachments and this was continued along the white line of Toldt in the descending colon to further mobilize the descending colon. Dissection was continued downward into the pelvic space. The palpable tumor was identified as noted above. This was in the lower portion of the sigmoid colon proximal to the rectosigmoid junction. An area at the junction between the descending and sigmoid colon was identified as a resection margin. The mesentery was divided below the bowel at this location. An Endo-MICHELA stapler was then used to divide the proximal sigmoid colon at this level. The mesentery was then divided using the LigaSure down to the sigmoid artery. The sigmoid artery and vein were ligated with 2-0 Polysorb sutures and divided. Mesentery was further divided using the LigaSure. The tumor was then brought up through the incision and a line of resection distal to the tumor identified approximately 5-6 cm beyond the tumor. Mesentery was divided again using the LigaSure. A curved MICHELA stapler was then used to divide the bowel distal to the tumor at this level. The remaining mesentery was then divided using the LigaSure. Specimen was removed and sent to pathology for further examination. Wounds were then irrigated and suctioned dry. No bleeding could be identified at this time. The descending colon was then further mobilized to allow creation of a end colostomy. A circular incision was made in the left upper quadrant just lateral to the umbilicus. This was carried out through subcutaneous tissue up to the anterior rectus sheath. A cruciate incision was then made in the anterior rectus sheath. Court clamp was then used to divide the rectus muscle down to the posterior sheath and peritoneum. This was then incised and the abdomen entered. The descending colon was then brought up through the circular incision in preparation for a colostomy at this location. Attention was then directed to the midline incision. Fascia was closed in the midline incision using a running locked 0 PDS suture. Fascia was closed in the right upper quadrant 12 mm incision using a 0 Polysorb suture. Skin was closed in all incisions using skin netta. Attention was then directed to the colostomy. The staple line was resected using electrocautery. A shoshone-bannock type ostomy was then performed using a 3-0 Polysorb suture to attach seromuscular edge of colon to serosa approximately 2 cm proximal on the colon wall followed by dermis. This was done in 4 quadrants of the colostomy. For additional sutures were placed between these as well. Sterile dressings consisting of 2 x 2 gauze and Tegaderm were then applied to all incisions. Colostomy bag was then applied to the colostomy. The patient tolerated the procedure well. Sponge, instrument, and needle counts reported as correct. Patient was transferred to PACU in stable condition.
[2024-03-18] MEDS: KCl 20 mEq in 5 % Dex/Lact Rin 20 MEQ/1,000 ML IV.SOLN 60 MEQ IVCONT (16:55)
[2024-03-18] MEDS: 0.9 % Sodium Chloride Flush 3 ML SYRINGE IVFLUSH (19:45)
[2024-03-18 22:14] LABS: Anion Gap 12 (12-20); Blood Urea Nitrogen 5 mg/dL (9-16); Calcium 8.4 mg/dL (8.4-10.2); Carbon Dioxide 26 mmol/L (22-29); Chloride 99 mmol/L (96-108); Creatinine Clr Calc Pharmacy 69.3; Estimated Glomerular Filt Rate > 60; Glucose Random 138 mg/dL (60-115); Potassium 3.5 mmol/L (3.3-5.1); Sodium 133 mmol/L (135-145)
[2024-03-19 03:26] VITALS: BP 138/68; PULSE 81; RESP 16; TEMP 36.6; O2SAT 98
[2024-03-19 06:33] LABS: Hematocrit 30.4 % (37.0-47.0); Hemoglobin 9.3 g/dl (12.0-16.0); Mean Corpuscular HGB Conc 30.6 g/dl (31.0-35.0); Mean Corpuscular Hemoglobin 23.6 pg (27.0-33.0); Mean Corpuscular Volume 77.2 fL (80.0-98.0); Mean Platelet Volume 9.2 fL (9.4-12.3); Platelet Count 335 X10*3/uL (160-400); Red Blood Count 3.94 X10*6/uL (4.20-5.50); Red Cell Distribution Width 18.8 % (11.0-16.0); White Blood Count 11.3 X10*3/uL (4.8-10.8)
[2024-03-19 06:47] LABS: Anion Gap 12 (12-20); Blood Urea Nitrogen 5 mg/dL (9-16); Calcium 8.3 mg/dL (8.4-10.2); Carbon Dioxide 28 mmol/L (22-29); Chloride 100 mmol/L (96-108); Creatinine Clr Calc Pharmacy 65.9; Estimated Glomerular Filt Rate > 60; Glucose Random 124 mg/dL (60-115); Potassium 3.5 mmol/L (3.3-5.1); Sodium 136 mmol/L (135-145)
[2024-03-19 07:08] VITALS: BP 140/72; PULSE 88; RESP 16; TEMP 36.5; O2SAT 93
[2024-03-19] MEDS: 0.9 % Sodium Chloride Flush 3 ML SYRINGE IVFLUSH ×3 (07:41→19:45)
[2024-03-19] MEDS: Famotidine/PF 20 MG/2 ML VIAL IVPUSH ×2 (07:43→19:45)
[2024-03-19] MEDS: oxyCODONE HCl Immed Release 5 MG TABLET PO ×3 (07:44→19:45)
--- NOTE | 2024-03-19 09:20 | PM.PNGS ---
Subjective Subjective Date of Service: 03/19/24 Interval history: good pain control feels well stoma with good output tolerating clears Physical Exam Vital Signs: Vital Signs: Last Vital Signs Temp 97.7 F 03/19/24 07:08 Pulse 88 03/19/24 07:08 Resp 16 03/19/24 07:08 BP 140/72 H 03/19/24 07:08 Pulse Ox 93 03/19/24 07:08 O2 Del Method Room Air 03/19/24 07:08 O2 Flow Rate 4 03/18/24 15:10 BMI result Body Mass Index 22.1 Const: General: comfortable and no acute distress Resp: Effort & Inspection: normal respiratory effort Cardio: Rate: regular rate GI: Other: stoma functioning well; incision dry Palpation (GI): Soft to palpation, not firm and no guarding Objective Data Active Medications Famotidine (Famotidine/Pf 20 Mg/2 Ml Vial) 20 mg IVPUSH BID [facility] Last Admin: 03/19/24 07:43 Dose: 20 mg Documented By: SHARRON Potassium Cl/Dextrose/Lact Ringer's (Kcl 20 Meq In 5 % Dex/Lact Rin) 20 meq in 1,000 mls @ 60 mls/hr IVCONT .[id number] [facility] Last Admin: 03/18/24 16:55 Dose: 60 mls/hr Documented By: DOMO Morphine Sulfate (Morphine Sulfate 4 Mg/Ml Cartridge) 2 mg IVPUSH Q4H PRN; Protocol PRN Reason: Pain, Severe (Pain Scale 7-10) Last Admin: 03/18/24 16:04 Dose: 2 mg Documented By: DOMO Ondansetron HCl (Ondansetron Hcl 4 Mg/2 Ml Vial) 4 mg IVPUSH Q8H PRN PRN Reason: Nausea and Vomiting Oxycodone HCl (Oxycodone Hcl Immed Release 5 Mg Tablet) 5 mg PO Q4H PRN PRN Reason: Pain, Moderate(Pain Scale 4-6) Last Admin: 03/19/24 07:44 Dose: 5 mg Documented By: SHARRON Sodium Chloride (0.9 % Sodium Chloride Flush 3 Ml Syringe) 3 ml IVFLUSH QSHIFT [facility] Last Admin: 03/19/24 07:41 Dose: 3 ml Documented By: SHARRON Labs 03/19/24 05:49 03/19/24 05:49 Labs: Laboratory Results - last 24 hr 03/17/24 03/17/24 03/18/24 09:09 14:17 21:09 MCV MCH MCHC RDW Plt Count MPV Absolute Nucleated RBC Nucleated RBC % (auto) Anion Gap 12 Estim Creat Clear Calc 69.3 Estimated GFR > 60 Random Glucose 138 H Calcium 8.4 Blood Type B Positive Antibody Screen NEGATIVE Crossmatch See Detail Post-Trans Add Testing TNP Pathologist Comment KIMBERLY SN 03/19/24 05:49 MCV 77.2 L MCH 23.6 L MCHC 30.6 L RDW 18.8 H Plt Count 335 MPV 9.2 L Absolute Nucleated RBC 0.000 Nucleated RBC % (auto) 0.0 Anion Gap 12 Estim Creat Clear Calc 65.9 Estimated GFR > 60 Random Glucose 124 H Calcium 8.3 L Blood Type Antibody Screen Crossmatch Post-Trans Add Testing Pathologist Comment KIMBERLY Procedures Date of Service Date of Service: 03/19/24 Progress Note: A&P Assessment and plan (1) Mass of colon: Status: Acute Assessment and Plan: S/P sigmoid resection, SB resection doing well postop looks well stoma functioning would keep on clears today encouraged ambulating niece at bedside Time Spent With Patient Time: Total time managing care of this patient today ____ minutes. Quality Stroke Does the patient have a stroke diagnosis?: No VTE Prior VTE?: No VTE Risk Level:: Medical - moderate - high VTE Device Contraindication: N/A - Device Ordered VTE Drug Contraindication: Treatment Not Indicated
[2024-03-19] MEDS: KCl 20 mEq in 5 % Dex/Lact Rin 20 MEQ/1,000 ML IV.SOLN 60 MEQ IVCONT (09:27)
[2024-03-19] MEDS: Morphine Sulfate 4 MG/ML CARTRIDGE 2 MG IVPUSH (10:25)
--- NOTE | 2024-03-19 11:20 | HO.POSTANES ---
Post Anesthesia Evaluation Post Anesthesia Evaluation Date of Service: 03/19/24 Vital Signs: Vital Signs Temp Pulse Resp BP Pulse Ox O2 Del Method 03/19/24 07:08 97.7 F 88 16 140/72 H 93 Room Air 03/19/24 03:26 97.8 F 81 16 138/68 98 Room Air Anesthesia: General Endotracheal-GETA Mental Status: Awake Pain Control: Satisfactory Nausea/Vomiting: None Hydration: Adequate Anesthesia-Related Issues: No Anes. Related Issues
--- NOTE | 2024-03-19 11:53 | P.PNIM_ITS ---
Subjective Subjective Date of Service: 03/19/24 Interval History: Doing well overall. Pain control adequate. Stoma with decent output Review of Systems Denies chest pain Denies shortness of breath Denies nausea vomiting diarrhea Denies fever chills Physical Exam 2 Vital Signs: Vital Signs: Last Vital Signs Temp 97.7 F 03/19/24 07:08 Pulse 88 03/19/24 07:08 Resp 16 03/19/24 07:08 BP 140/72 H 03/19/24 07:08 Pulse Ox 93 03/19/24 07:08 O2 Del Method Room Air 03/19/24 07:08 O2 Flow Rate 4 03/18/24 15:10 BMI result Body Mass Index 22.1 Const: Other: No acute issues overnight Resp: Other: Clear to auscultation bilaterally no rales rhonchi or wheezes Cardio: Other: No S4; positive S1-S2; no S3 murmurs rubs or gallops GI: Other: Soft nontender nondistended normoactive bowel sounds. Ostomy with soft brown stool Extrem: Other: No edema bilaterally Objective Data Active Medications Famotidine (Famotidine/Pf 20 Mg/2 Ml Vial) 20 mg IVPUSH BID [facility] Last Admin: 03/19/24 07:43 Dose: 20 mg Documented By: SHARRON Potassium Cl/Dextrose/Lact Ringer's (Kcl 20 Meq In 5 % Dex/Lact Rin) 20 meq in 1,000 mls @ 60 mls/hr IVCONT .[id number] [facility] Last Admin: 03/19/24 09:27 Dose: 60 mls/hr Documented By: SHARRON Morphine Sulfate (Morphine Sulfate 4 Mg/Ml Cartridge) 2 mg IVPUSH Q4H PRN; Protocol PRN Reason: Pain, Severe (Pain Scale 7-10) Last Admin: 03/19/24 10:25 Dose: 2 mg Documented By: SHARRON Ondansetron HCl (Ondansetron Hcl 4 Mg/2 Ml Vial) 4 mg IVPUSH Q8H PRN PRN Reason: Nausea and Vomiting Oxycodone HCl (Oxycodone Hcl Immed Release 5 Mg Tablet) 5 mg PO Q4H PRN PRN Reason: Pain, Moderate(Pain Scale 4-6) Last Admin: 03/19/24 07:44 Dose: 5 mg Documented By: SHARRON Sodium Chloride (0.9 % Sodium Chloride Flush 3 Ml Syringe) [facility] Last Admin: 03/19/24 07:41 Dose: 3 ml Documented By: SHARRON Labs 03/19/24 05:49 03/19/24 05:49 Labs: Laboratory Results - last 24 hr 03/17/24 03/17/24 03/18/24 09:09 14:17 21:09 MCV MCH MCHC RDW Plt Count MPV Absolute Nucleated RBC Nucleated RBC % (auto) Anion Gap 12 Estim Creat Clear Calc 69.3 Estimated GFR > 60 Random Glucose 138 H Calcium 8.4 Blood Type B Positive Antibody Screen NEGATIVE Crossmatch See Detail Post-Trans Add Testing TNP Pathologist Comment KIMBERLY SN 03/19/24 05:49 MCV 77.2 L MCH 23.6 L MCHC 30.6 L RDW 18.8 H Plt Count 335 MPV 9.2 L Absolute Nucleated RBC 0.000 Nucleated RBC % (auto) 0.0 Anion Gap 12 Estim Creat Clear Calc 65.9 Estimated GFR > 60 Random Glucose 124 H Calcium 8.3 L Blood Type Antibody Screen Crossmatch Post-Trans Add Testing Pathologist Comment KIMBERLY Assessment and Plan (1) Colon obstruction: Status: Acute (2) Microcytic anemia: Status: Acute Plan 73-year-old female with a PMH significant for?left hip replacement not currently home meds who presents to the ED with?anorexia, nausea, vomiting, and abdominal pain x1 week. Pt . 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 Status post sigmoid resection with Filippo's procedure (pod 1) -continue clear liquids as per surgery -further plans as per surgical coverage 2.Acute hypokalemia -resolved -follow renals/divalents 3.Acute on chronic Microcytic anemia -at baseline -outpatient iron repletion orally Full Code Pneumatic boots Pt will require continued inpatient hospitalization for postoperative treatment of sigmoid resection Quality Stroke Does the patient have a stroke diagnosis?: No VTE Prior VTE?: No VTE Risk Level:: Medical - moderate - high VTE Device Contraindication: N/A - Device Ordered VTE Drug Contraindication: Treatment Not Indicated
[2024-03-19 15:08] VITALS: BP 126/63; PULSE 82; RESP 16; TEMP 36.8; O2SAT 95
[2024-03-19 19:12] VITALS: BP 136/62; PULSE 91; RESP 16; TEMP 36.8; O2SAT 94
[2024-03-20] MEDS: KCl 20 mEq in 5 % Dex/Lact Rin 20 MEQ/1,000 ML IV.SOLN 60 MEQ IVCONT (00:19)
[2024-03-20 03:29] VITALS: BP 120/60; PULSE 86; RESP 18; TEMP 37; O2SAT 95
[2024-03-20 06:11] LABS: MANUAL DIFF FLAG NO
[2024-03-20 06:30] LABS: Basophils Percent Auto 0.1 % (0-2); Eosinophils Absolute Auto 0.1 X10*3/uL (0.0-0.4); Eosinophils Percent Auto 0.7 % (0-4); Hematocrit 30.6 % (37.0-47.0); Hemoglobin 9.2 g/dl (12.0-16.0); Imm Gran Abs Auto 0.08 X10*3/uL (0.00-0.03); Imm Gran Pct Auto 0.7 % (0.0-0.4); Lymphocytes Percent Auto 8.6 % (20-40); Mean Corpuscular HGB Conc 30.1 g/dl (31.0-35.0); Mean Corpuscular Volume 76.5 fL (80.0-98.0); Mean Platelet Volume 9.2 fL (9.4-12.3); Monocytes Absolute Auto 1.1 X10*3/uL (0.1-1.2); Monocytes Percent Auto 9.4 % (2-11); Neutrophils Absolute Auto 9.2 x10*3/uL (2.0-8.3); Neutrophils Percent Auto 80.5 % (45-73); Platelet Count 291 X10*3/uL (160-400); White Blood Count 11.4 X10*3/uL (4.8-10.8)
[2024-03-20 06:31] LABS: Alanine Aminotransferase 12 U/L (0-31); Albumin Level 2.6 g/dL (3.5-5.0); Alkaline Phosphatase 73 U/L (39-117); Anion Gap 11 (12-20); Aspartate Amino Transferase 15 U/L (5-31); Bilirubin Total 0.5 mg/dL (0.0-1.0); Blood Urea Nitrogen 6 mg/dL (9-16); Calcium 8.3 mg/dL (8.4-10.2); Carbon Dioxide 29 mmol/L (22-29); Chloride 98 mmol/L (96-108); Creatinine Clr Calc Pharmacy 70.5; Estimated Glomerular Filt Rate > 60; Glucose Fasting 95 mg/dL (60-99); Potassium 3.2 mmol/L (3.3-5.1); Sodium 135 mmol/L (135-145); Total Protein 5.2 g/dL (6.5-8.0)
[2024-03-20 07:16] VITALS: BP 128/66; PULSE 75; RESP 16; TEMP 36.9; O2SAT 98
[2024-03-20] MEDS: Famotidine/PF 20 MG/2 ML VIAL IVPUSH ×2 (08:14→19:59)
[2024-03-20] MEDS: oxyCODONE HCl Immed Release 5 MG TABLET PO ×2 (08:14→16:12)
[2024-03-20] MEDS: Potassium Chloride Packet 20 MEQ PACKET 40 MEQ PO ×2 (08:14→19:58)
--- NOTE | 2024-03-20 09:33 | PM.PNGS ---
Subjective Subjective Date of Service: 03/20/24 Interval history: says she feels well tolerating clears stoma functioning pain well controlled seen ambulating down hallway Physical Exam Vital Signs: Vital Signs: Last Vital Signs Temp 98.4 F 03/20/24 07:16 Pulse 75 03/20/24 07:16 Resp 16 03/20/24 07:16 BP 128/66 03/20/24 07:16 Pulse Ox 98 03/20/24 07:16 O2 Del Method Room Air 03/20/24 07:16 O2 Flow Rate 4 03/18/24 15:10 BMI result Body Mass Index 22.1 Const: General: comfortable and no acute distress Resp: Effort & Inspection: normal respiratory effort Cardio: Rate: regular rate GI: Other: incision clean, somta with output, edematous but viable Palpation (GI): Soft to palpation, not firm and no guarding Objective Data Active Medications Famotidine (Famotidine/Pf 20 Mg/2 Ml Vial) 20 mg IVPUSH BID [facility] Last Admin: 03/20/24 08:14 Dose: 20 mg Documented By: SHARRON Potassium Cl/Dextrose/Lact Ringer's (Kcl 20 Meq In 5 % Dex/Lact Rin) 20 meq in 1,000 mls @ 60 mls/hr IVCONT .[id number] [facility] Last Admin: 03/20/24 00:19 Dose: 60 mls/hr Documented By: IRASEMA Morphine Sulfate (Morphine Sulfate 4 Mg/Ml Cartridge) 2 mg IVPUSH Q4H PRN; Protocol PRN Reason: Pain, Severe (Pain Scale 7-10) Last Admin: 03/19/24 10:25 Dose: 2 mg Documented By: SHARRON Ondansetron HCl (Ondansetron Hcl 4 Mg/2 Ml Vial) 4 mg IVPUSH Q8H PRN PRN Reason: Nausea and Vomiting Oxycodone HCl (Oxycodone Hcl Immed Release 5 Mg Tablet) 5 mg PO Q4H PRN PRN Reason: Pain, Moderate(Pain Scale 4-6) Last Admin: 03/20/24 08:14 Dose: 5 mg Documented By: SHARRON Potassium Chloride (Potassium Chloride Packet 20 Meq Packet) 40 meq PO BID [facility] Stop: 03/20/24 21:01 Last Admin: 05/05/24 08:14 Dose: 40 meq Documented By: SHARRON Sodium Chloride (0.9 % Sodium Chloride Flush 3 Ml Syringe) 3 ml IVFLUSH QSHIFT [facility] Last Admin: 03/20/24 08:14 Dose: Not Given Documented By: SHARRON Non-Admin Reason: IV Running Labs 03/20/24 06:06 03/20/24 06:06 Labs: Laboratory Results - last 24 hr 03/20/24 06:06 MCV 76.5 L MCH 23.0 L MCHC 30.1 L RDW 19.0 H Plt Count 291 MPV 9.2 L Immature Gran % (Auto) 0.7 H Neut % (Auto) 80.5 H Lymph % (Auto) 8.6 L [place] % (Auto) 9.4 Eos % (Auto) 0.7 Baso % (Auto) 0.1 Lymph # (Auto) 1.0 L [place] # (Auto) 1.1 Eos # (Auto) 0.1 Baso # (Auto) 0.0 Abs Immat Gran (auto) 0.08 H Absolute Neuts (auto) 9.2 H Absolute Nucleated RBC 0.000 Nucleated RBC % (auto) 0.0 Anion Gap 11 L Estim Creat Clear Calc 70.5 Estimated GFR > 60 Fasting Glucose 95 Calcium 8.3 L Total Bilirubin 0.5 AST 15 ALT 12 Alkaline Phosphatase 73 Total Protein 5.2 L Albumin 2.6 L Procedures Date of Service Date of Service: 03/20/24 Progress Note: A&P Assessment and plan (1) Mass of colon: Status: Acute Assessment and Plan: S/P sigmoid resection, colostomy, and SB resection looks well tolerating diet ok to try regular diet abd soft replace K await full path report she seems to be doing very well postop Time Spent With Patient Time: Total time managing care of this patient today ____ minutes. Quality Stroke Does the patient have a stroke diagnosis?: No VTE Prior VTE?: No VTE Risk Level:: Medical - moderate - high VTE Device Contraindication: N/A - Device Ordered VTE Drug Contraindication: Treatment Not Indicated
--- NOTE | 2024-03-20 12:37 | HO.PM.IMPN ---
Subjective Subjective Date of Service: 03/20/24 Interval History: Continues to improve. Tolerating advancement of diet. Ambulating in hallway Review of Systems Denies chest pain Denies shortness of breath Denies nausea vomiting diarrhea Denies fever chills Physical Exam Vital Signs: Vital Signs: Last Vital Signs Temp 98.4 F 03/20/24 07:16 Pulse 75 03/20/24 07:16 Resp 16 03/20/24 07:16 BP 128/66 03/20/24 07:16 Pulse Ox 98 03/20/24 07:16 O2 Del Method Room Air 03/20/24 07:16 O2 Flow Rate 4 03/18/24 15:10 BMI result Body Mass Index 22.1 Const: Other: No acute issues overnight Resp: Other: Clear to auscultation bilaterally no rales rhonchi or wheezes Cardio: Other: No S4; positive S1-S2; no S3 murmurs rubs or gallops GI: Other: Soft nontender nondistended normoactive bowel sounds. Ostomy with soft brown stool Extrem: Other: No edema bilaterally Objective Data Active Medications Famotidine (Famotidine/Pf 20 Mg/2 Ml Vial) 20 mg IVPUSH BID [facility] Last Admin: 03/20/24 08:14 Dose: 20 mg Documented By: SHARRON Potassium Cl/Dextrose/Lact Ringer's (Kcl 20 Meq In 5 % Dex/Lact Rin) 20 meq in 1,000 mls @ 60 mls/hr IVCONT .[id number] [facility] Last Admin: 03/20/24 00:19 Dose: 60 mls/hr Documented By: IRASEMA Morphine Sulfate (Morphine Sulfate 4 Mg/Ml Cartridge) 2 mg IVPUSH Q4H PRN; Protocol PRN Reason: Pain, Severe (Pain Scale 7-10) Last Admin: 03/19/24 10:25 Dose: 2 mg Documented By: SHARRON Ondansetron HCl (Ondansetron Hcl 4 Mg/2 Ml Vial) 4 mg IVPUSH Q8H PRN PRN Reason: Nausea and Vomiting Oxycodone HCl (Oxycodone Hcl Immed Release 5 Mg Tablet) 5 mg PO Q4H PRN PRN Reason: Pain, Moderate(Pain Scale 4-6) Last Admin: 03/20/24 08:14 Dose: 5 mg Documented By: SHARRON Potassium Chloride (Potassium Chloride Packet 20 Meq Packet) 40 meq PO BID [facility] Stop: 03/20/24 21:01 Last Admin: 03/20/24 08:14 Dose: 40 meq Documented By: SHARRON Sodium Chloride (0.9 % Sodium Chloride Flush 3 Ml Syringe) 3 ml IVFLUSH QSHIFT [facility] Last Admin: 03/20/24 08:14 Dose: Not Given Documented By: SHARRON Non-Admin Reason: IV Running Labs 03/20/24 06:06 03/20/24 06:06 Labs: Laboratory Results - last 24 hr 03/20/24 06:06 MCV 76.5 L MCH 23.0 L MCHC 30.1 L RDW 19.0 H Plt Count 291 MPV 9.2 L Immature Gran % (Auto) 0.7 H Neut % (Auto) 80.5 H Lymph % (Auto) 8.6 L [place] % (Auto) 9.4 Eos % (Auto) 0.7 Baso % (Auto) 0.1 Lymph # (Auto) 1.0 L [place] # (Auto) 1.1 Eos # (Auto) 0.1 Baso # (Auto) 0.0 Abs Immat Gran (auto) 0.08 H Absolute Neuts (auto) 9.2 H Absolute Nucleated RBC 0.000 Nucleated RBC % (auto) 0.0 Anion Gap 11 L Estim Creat Clear Calc 70.5 Estimated GFR > 60 Fasting Glucose 95 Calcium 8.3 L Total Bilirubin 0.5 AST 15 ALT 12 Alkaline Phosphatase 73 Total Protein 5.2 L Albumin 2.6 L Assessment and Plan (1) Partial obstruction of small intestine: Status: Acute Plan 73-year-old female with a PMH significant for?left hip replacement not currently home meds who presents to the ED with?anorexia, nausea, vomiting, and abdominal pain x1 week. Pt . 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 Status post sigmoid resection with Filippo's procedure (pod 2) -continue clear liquids as per surgery -further plans as per surgical coverage 2.Acute hypokalemia -resolved -follow renals/divalents 3.Acute on chronic Microcytic anemia -at baseline -outpatient iron repletion orally Full Code Pneumatic boots Pt will require continued inpatient hospitalization for postoperative treatment of sigmoid resection Quality Stroke Does the patient have a stroke diagnosis?: No VTE Prior VTE?: No VTE Risk Level:: Medical - moderate - high VTE Device Contraindication: N/A - Device Ordered VTE Drug Contraindication: Treatment Not Indicated
[2024-03-20 14:58] VITALS: BP 137/69; PULSE 85; RESP 16; TEMP 36.6; O2SAT 93
[2024-03-20] MEDS: 0.9 % Sodium Chloride Flush 3 ML SYRINGE IVFLUSH ×2 (16:12→19:59)
[2024-03-20 19:23] VITALS: BP 122/62; PULSE 88; RESP 17; TEMP 37; O2SAT 94
--- NOTE | 2024-03-20 23:22 | PC.NURSE ---
Assumed care of patient at 19:15. Please see shift assessment, associated tasks, and MAR for full details. Handoff report given to oncoming RN 23:10.
[2024-03-21 03:23] VITALS: BP 122/64; PULSE 68; RESP 17; TEMP 36.9; O2SAT 94
[2024-03-21 07:09] LABS: MANUAL DIFF FLAG NO
[2024-03-21 07:18] VITALS: BP 159/76; PULSE 80; RESP 14; TEMP 36.2; O2SAT 96
[2024-03-21 07:26] LABS: Basophils Percent Auto 0.2 % (0-2); Eosinophils Absolute Auto 0.2 X10*3/uL (0.0-0.4); Eosinophils Percent Auto 1.5 % (0-4); Hematocrit 27.1 % (37.0-47.0); Hemoglobin 8.3 g/dl (12.0-16.0); Imm Gran Abs Auto 0.06 X10*3/uL (0.00-0.03); Imm Gran Pct Auto 0.6 % (0.0-0.4); Lymphocytes Absolute Auto 1.1 X10*3/uL (1.2-4.9); Lymphocytes Percent Auto 10.7 % (20-40); Mean Corpuscular HGB Conc 30.6 g/dl (31.0-35.0); Mean Corpuscular Hemoglobin 23.4 pg (27.0-33.0); Mean Corpuscular Volume 76.3 fL (80.0-98.0); Mean Platelet Volume 9.1 fL (9.4-12.3); Monocytes Percent Auto 10.5 % (2-11); Neutrophils Absolute Auto 7.6 x10*3/uL (2.0-8.3); Neutrophils Percent Auto 76.5 % (45-73); Platelet Count 278 X10*3/uL (160-400); Red Blood Count 3.55 X10*6/uL (4.20-5.50); Red Cell Distribution Width 19.1 % (11.0-16.0); White Blood Count 9.9 X10*3/uL (4.8-10.8)
[2024-03-21 07:38] LABS: Anion Gap 12 (12-20); Blood Urea Nitrogen 7 mg/dL (9-16); Calcium 8.1 mg/dL (8.4-10.2); Carbon Dioxide 27 mmol/L (22-29); Chloride 100 mmol/L (96-108); Creatinine Clr Calc Pharmacy 69.3; Estimated Glomerular Filt Rate > 60; Glucose Fasting 93 mg/dL (60-99); Sodium 136 mmol/L (135-145)
--- NOTE | 2024-03-21 07:46 | PM.PNGS ---
Subjective Subjective Date of Service: 03/21/24 <Chayito Lugo PA-C - Last Filed: 03/21/24 09:00> 03/21/24 <Earl Bryant MD - Last Filed: 03/21/24 10:27> Interval history: Feels much better. Pain controlled. Tolerating some solids. Ostomy working well. <Chayito Lugo PA-C - Last Filed: 03/21/24 09:00> Physical Exam Vital Signs: Vital Signs: Last Vital Signs Temp 97.1 F 03/21/24 07:18 Pulse 80 03/21/24 07:18 Resp 14 03/21/24 07:18 BP 159/76 H 03/21/24 07:18 Pulse Ox 96 03/21/24 07:18 O2 Del Method Room Air 03/21/24 07:18 O2 Flow Rate 4 03/18/24 15:10 BMI result Body Mass Index 22.1 <Chayito Lugo PA-C - Last Filed: 03/21/24 09:00> Const: General: comfortable, no acute distress and alert <Chayito Lugo PA-C - Last Filed: 03/21/24 09:00> Resp: Effort & Inspection: normal respiratory effort <Chayito Lugo PA-C - Last Filed: 03/21/24 09:00> GI: Other: ostomy edematous but pink, soft stool in appliance <Chayito Lugo PA-C - Last Filed: 03/21/24 09:00> Inspection: No distended and Yes incision (clean) <Chayito Lugo PA-C - Last Filed: 03/21/24 09:00> Skin: General skin exam: no rashes or lesions noted <MARLIN Cabrera Last Filed: 03/21/24 09:00> Objective Data Active Medications Famotidine (Famotidine/Pf 20 Mg/2 Ml Vial) 20 mg IVPUSH BID [facility] Last Admin: 03/20/24 19:59 Dose: 20 mg Documented By: VICKIE Morphine Sulfate (Morphine Sulfate 4 Mg/Ml Cartridge) 2 mg IVPUSH Q4H PRN; Protocol PRN Reason: Pain, Severe (Pain Scale 7-10) Last Admin: 03/19/24 10:25 Dose: 2 mg Documented By: SHARRON Ondansetron HCl (Ondansetron Hcl 4 Mg/2 Ml Vial) 4 mg IVPUSH Q8H PRN PRN Reason: Nausea and Vomiting Oxycodone HCl (Oxycodone Hcl Immed Release 5 Mg Tablet) 5 mg PO Q4H PRN PRN Reason: Pain, Moderate(Pain Scale 4-6) Last Admin: 03/20/24 16:12 Dose: 5 mg Documented By: SHARRON Sodium Chloride (0.9 % Sodium Chloride Flush 3 Ml Syringe) 3 ml IVFLUSH [facility] Last Admin: 03/20/24 19:59 Dose: 3 ml Documented By: VICKIE <Chayito Lugo PA-C - Last Filed: 03/21/24 09:00> Labs CBC & Chem 7: 03/21/24 05:53 03/21/24 05:53 <Chayito Lugo PA-C - Last Filed: 03/21/24 09:00> Labs: Laboratory Results - last 24 hr 03/21/24 05:53 MCV 76.3 L MCH 23.4 L MCHC 30.6 L RDW 19.1 H Plt Count 278 MPV 9.1 L Immature Gran % (Auto) 0.6 H Neut % (Auto) 76.5 H Lymph % (Auto) 10.7 L [place] % (Auto) 10.5 Eos % (Auto) 1.5 Baso % (Auto) 0.2 Lymph # (Auto) 1.1 L [place] # (Auto) 1.0 Eos # (Auto) 0.2 Baso # (Auto) 0.0 Abs Immat Gran (auto) 0.06 H Absolute Neuts (auto) 7.6 Absolute Nucleated RBC 0.000 Nucleated RBC % (auto) 0.0 Anion Gap 12 Estim Creat Clear Calc 69.3 Estimated GFR > 60 Fasting Glucose 93 Calcium 8.1 L <Chayito Lugo PA-C - Last Filed: 03/21/24 09:00> Procedures Date of Service Date of Service: 03/21/24 <Chayito Lugo PA-C - Last Filed: 03/21/24 09:00> 03/21/24 <Earl Bryant MD - Last Filed: 03/21/24 10:27> Progress Note: A&P Assessment and plan (1) Colon obstruction: Status: Acute <Chayito Lugo PA-C - Last Filed: 03/21/24 09:00> (2) Mass of colon: Status: Acute <Chayito Lugo PA-C - Last Filed: 03/21/24 09:00> Assessment and Plan: POD #3 S/P sigmoid resection, colostomy, and SB resection Doing well post op. Tolerating solid food. Incision clean. Colostomy viable appearing with good output. Colostomy education. Await full path report. Surgically stable and ready for dc when medically cleared. F/u in office in 1 week. Will need VNA services for ostomy care upon dc. <Chayito Lugo PA-C - Last Filed: 03/21/24 09:00> POD #3 S/P sigmoid resection, colostomy, and SB resection Doing well post op. Tolerating solid food. Incision clean. Colostomy viable appearing with good output. Colostomy education. Await full path report. Surgically stable and ready for dc when medically cleared. F/u in office in 1 week. Will need VNA services for ostomy care upon dc. Agree with the above assessment plan. Patient doing great and tolerating regular diet. Ostomy is functioning well. Will need ostomy education. <Earl Bryant MD - Last Filed: 03/21/24 10:27> Time Spent With Patient Time: Total time managing care of this patient today ____ minutes. <Chayito Lugo PA-C - Last Filed: 03/21/24 09:00> Quality Stroke Does the patient have a stroke diagnosis?: No <Chayito Lugo PA-C - Last Filed: 03/21/24 09:00> VTE Prior VTE?: No <Chayito Lugo PA-C - Last Filed: 03/21/24 09:00> VTE Risk Level:: Medical - moderate - high <MARLIN Cabrera Last Filed: 03/21/24 09:00> VTE Device Contraindication: N/A - Device Ordered <Chayito Lugo PA-C - Last Filed: 03/21/24 09:00> VTE Drug Contraindication: Treatment Not Indicated <Chayito Lugo PA-C - Last Filed: 03/21/24 09:00>
[2024-03-21 08:03] LABS: Potassium 2.7 mmol/L (3.3-5.1)
[2024-03-21] MEDS: Potassium Chloride Packet 20 MEQ PACKET 40 MEQ PO ×3 (08:19→19:53)
[2024-03-21] MEDS: Famotidine/PF 20 MG/2 ML VIAL IVPUSH ×2 (08:20→19:56)
[2024-03-21] MEDS: oxyCODONE HCl Immed Release 5 MG TABLET PO ×3 (08:20→20:03)
[2024-03-21] MEDS: 0.9 % Sodium Chloride Flush 3 ML SYRINGE IVFLUSH ×3 (08:20→19:54)
--- NOTE | 2024-03-21 12:48 | MHC.CM.PN ---
PER DAUGHTER, SHE CALLED MD OFFICE AND EXPLAINED THE SITUATION AND WHY PT MISSED NEW PT APPT. PER VIDA, DR APPLE'S NURSE STATES SHE WILL SIGN VNA ORDERS THOUGH SHE HAD NOT BEEN SEEN. tHIS CM CONFIRMED WITH [facility] (MIAN). [facility] NOTIFIED OF THESE CHANGES AND WILL ALSO NEED TO CONFIRM THAT PROVIDER WILL SIGN ORDERS. CM CONTINUES TO FOLLOW.
--- NOTE | 2024-03-21 12:58 | P.PNIM_ITS ---
Subjective Subjective Date of Service: 03/21/24 Interval History: Doing excellent. Ambulating in chang with staff. Daughter in with ostomy nurse Review of Systems Denies chest pain Denies shortness of breath Denies nausea vomiting diarrhea Denies fever chills Physical Exam 2 Vital Signs: Vital Signs: Last Vital Signs Temp 97.1 F 03/21/24 07:18 Pulse 80 03/21/24 07:18 Resp 14 03/21/24 07:18 BP 159/76 H 03/21/24 07:18 Pulse Ox 96 03/21/24 07:18 O2 Del Method Room Air 03/21/24 07:18 O2 Flow Rate 4 03/18/24 15:10 BMI result Body Mass Index 22.1 Const: Other: No acute issues overnight Resp: Other: Clear to auscultation bilaterally no rales rhonchi or wheezes Cardio: Other: No S4; positive S1-S2; no S3 murmurs rubs or gallops GI: Other: Soft nontender nondistended normoactive bowel sounds. Ostomy with soft brown stool Extrem: Other: No edema bilaterally Objective Data Active Medications Famotidine (Famotidine/Pf 20 Mg/2 Ml Vial) 20 mg IVPUSH BID [facility] Last Admin: 03/21/24 08:20 Dose: 20 mg Documented By: TRISTIN Ondansetron HCl (Ondansetron Hcl 4 Mg/2 Ml Vial) 4 mg IVPUSH Q8H PRN PRN Reason: Nausea and Vomiting Oxycodone HCl (Oxycodone Hcl Immed Release 5 Mg Tablet) 5 mg PO Q4H PRN PRN Reason: Pain, Moderate(Pain Scale 4-6) Last Admin: 03/21/24 08:20 Dose: 5 mg Documented By: TRISTIN Potassium Chloride (Potassium Chloride Packet 20 Meq Packet) 40 meq PO TID [facility] Stop: 03/21/24 21:01 Last Admin: 03/21/24 08:19 Dose: 40 meq Documented By: TRISTIN Sodium Chloride (0.9 % Sodium Chloride Flush 3 Ml Syringe) 3 ml IVFLUSH QSHIFT [facility] Last Admin: 03/21/24 08:20 Dose: 3 ml Documented By: TRISTIN Labs 03/21/24 05:53 03/21/24 05:53 Labs: Laboratory Results - last 24 hr 05/06/24 05:53 MCV 76.3 L MCH 23.4 L MCHC 30.6 L RDW 19.1 H Plt Count 278 MPV 9.1 L Immature Gran % (Auto) 0.6 H Neut % (Auto) 76.5 H Lymph % (Auto) 10.7 L [place] % (Auto) 10.5 Eos % (Auto) 1.5 Baso % (Auto) 0.2 Lymph # (Auto) 1.1 L [place] # (Auto) 1.0 Eos # (Auto) 0.2 Baso # (Auto) 0.0 Abs Immat Gran (auto) 0.06 H Absolute Neuts (auto) 7.6 Absolute Nucleated RBC 0.000 Nucleated RBC % (auto) 0.0 Anion Gap 12 Estim Creat Clear Calc 69.3 Estimated GFR > 60 Fasting Glucose 93 Calcium 8.1 L Assessment and Plan (1) Mass of colon: Status: Acute Plan 73-year-old female with a PMH significant for?left hip replacement not currently home meds who presents to the ED with?anorexia, nausea, vomiting, and abdominal pain x1 week. Pt . 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 Status post sigmoid resection with Filippo's procedure (pod 2) -tolerating diet without issue -ostomy nurse teaching daughter ostomy care until able to get VNA (no PCP at this time) -family to arrange living setting. . . Likely DC in a.m. 2.Acute hypokalemia -resolved -follow renals/divalents 3.Acute on chronic Microcytic anemia -at baseline -outpatient iron repletion orally Full Code Pneumatic boots Pt will require continued inpatient hospitalization for postoperative treatment of sigmoid resection Quality Stroke Does the patient have a stroke diagnosis?: No VTE Prior VTE?: No VTE Risk Level:: Medical - moderate - high VTE Device Contraindication: N/A - Device Ordered VTE Drug Contraindication: Treatment Not Indicated
[2024-03-21 15:48] VITALS: BP 137/71; PULSE 83; RESP 18; TEMP 36.3; O2SAT 93
[2024-03-21 19:27] VITALS: BP 133/69; PULSE 74; RESP 20; TEMP 36.8; O2SAT 94
[2024-03-22 03:52] VITALS: BP 130/67; PULSE 78; RESP 16; TEMP 36.3; O2SAT 93
--- NOTE | 2024-03-22 07:42 | P.PNGS_ITS ---
Subjective Subjective Date of Service: 03/22/24 Patient reports: no new complaints Interval history: Patient reports tolerating diet yesterday, ambulating in hallways. Physical Exam 2 Vital Signs: Vital Signs: Last Vital Signs Temp 97.4 F 03/22/24 03:52 Pulse 78 03/22/24 03:52 Resp 16 03/22/24 03:52 BP 130/67 03/22/24 03:52 Pulse Ox 93 03/22/24 03:52 O2 Del Method Room Air 03/22/24 03:52 O2 Flow Rate 4 03/18/24 15:10 BMI result Body Mass Index 22.1 Const: General: no acute distress Resp: Effort & Inspection: normal respiratory effort GI: Other: Incision clean and intact. Ostomy pink with stool in bag. Palpation (GI): Soft to palpation, nontender, no guarding and not rigid Skin: Other: Warm and dry, no rash Objective Data Active Medications Famotidine (Famotidine/Pf 20 Mg/2 Ml Vial) 20 mg IVPUSH BID [facility] Last Admin: 03/21/24 19:56 Dose: 20 mg Documented By: CARMEN Ferrous Sulfate (Ferrous Sulfate 324 Mg Tablet.) 324 mg PO BIDWM [facility] Ondansetron HCl (Ondansetron Hcl 4 Mg/2 Ml Vial) 4 mg IVPUSH Q8H PRN PRN Reason: Nausea and Vomiting Oxycodone HCl (Oxycodone Hcl Immed Release 5 Mg Tablet) 5 mg PO Q4H PRN PRN Reason: Pain, Moderate(Pain Scale 4-6) Last Admin: 03/21/24 20:03 Dose: 5 mg Documented By: CARMEN Sodium Chloride (0.9 % Sodium Chloride Flush 3 Ml Syringe) [facility] Last Admin: 03/21/24 19:54 Dose: 3 ml Documented By: CARMEN Labs 03/21/24 05:53 03/21/24 05:53 Procedures Date of Service Date of Service: 03/22/24 Progress Note: A&P Assessment and plan (1) Mass of colon: Status: Acute Plan Pod 4 following sigmoid colectomy an end colostomy for obstructing sigmoid mass. Pathology pending. Patient doing quite well, tolerating diet and ambulating well. Possible discharge to home later today. Will follow-up in office in 1 week for staple removal. Awaiting pathology results. Time Spent With Patient Time: Total time managing care of this patient today ____ minutes. Quality Stroke Does the patient have a stroke diagnosis?: No VTE Prior VTE?: No VTE Risk Level:: Medical - moderate - high VTE Device Contraindication: N/A - Device Ordered VTE Drug Contraindication: Treatment Not Indicated
[2024-03-22] MEDS: 0.9 % Sodium Chloride Flush 3 ML SYRINGE IVFLUSH (07:51)
[2024-03-22] MEDS: Ferrous Sulfate 324 MG TABLET.DR PO (07:51)
[2024-03-22] MEDS: Famotidine/PF 20 MG/2 ML VIAL IVPUSH (07:51)
[2024-03-22 07:59] VITALS: BP 129/62; PULSE 77; RESP 16; TEMP 36.3; O2SAT 93
[2024-03-22 08:07] LABS: Potassium 3.2 mmol/L (3.3-5.1)
--- NOTE | 2024-03-22 10:53 | P.DS_ITS ---
DS: Providers Provider Date of Service: 03/22/24 Date of admission: 03/16/24 12:10 Primary care physician: Shyann Nobles MD Consults: 03/16/24 08:34 Consult to Gastroenterology Routine Consulting Provider: Filiberto Chu Reason for consultation: Possible partial small-bowel obstruction, sigmoid malignancy Has provider been notified: Yes Consult to General Surgery Routine Consulting Provider: [facility] – [place] General Surgeons Reason for consultation: Possible partial small-bowel obstruction, sigmoid malignancy Has provider been notified: Yes 03/18/24 15:40 Consult to Ostomy Care Routine DS: Diagnosis Discharge Diagnosis (1) Mass of colon: Status: Acute DS: Summary Hospital Course Hospital Course: History of presenting illness: Date of Service: 03/16/24 Attending physician on admission: Ivis Schmitz Chief Complaint: Abdominal pain Pt is a 73-year-old female with a PMH significant for?left hip replacement not currently home meds who presents to the ED with?anorexia, nausea, vomiting, and abdominal pain x1 week. Patient states she is experienced bloating, nausea and vomiting with eating or drinking anything, intermittent lower left quadrant abdominal pain since last week, worse the past few days. Also reports constipation during this time with only a small bowel movement the day before yesterday. Says passed some flatus yesterday but none today. Has noticed a little bit blood once or twice recently with bowel movements, denies rectal pain. Reports recent increased fatigue and losing a ?little bit? of weight. Has had new, significant lower leg edema x3 weeks; past few days has been unable to fit into her shoes. Denies SOB, cough. No orthopnea or PND. Denies chest pain/pressure or palpitations. No fever, chills. Of note, pt denies hx of colonoscopy and has not seen a PCP in many years. In the ED pt's vitals stable, largely WNL. Labs were significant for microcytic anemia of 8.2/27.1 with MCV 74.9, otherwise grossly unremarkable. No leukocy tosis. No significant electrolyte abnormalities. Renal and hepatic function WNL. UA negative for UTI. CT?of Ativan and pelvis showed suspected abnormal, irregular thickening of the wall the mid to distal sigmoid, suspicion for malignancy. Also found of proximal colon and small bowel dilation, suggestive of early partial obstruction. EKG demonstrated sinus rhythm with occasional PVCs, but no evidence of significant ST elevations or depressions. Pt was treated with ondansetron, morphine, IVF, and started on D5 NS maintenance fluid. Pt will be admitted to the hospital for treatment and further evaluation of possible SBO in the setting colonic mass. Hospital course: 73-year-old female with a PMH significant for?left hip replacement not currently on home meds presented to [facility] with symptoms of?anorexia, nausea, vomiting, and abdominal pain , abdominal CT scan showed irregular thickening of the mid to distal sigmoid causing early partial obstruction, patient admitted to medical floor seen by reprographics technician Dr. Chu and underwent flexible sigmoidoscopy on that showed obstructing sigmoid mass, subsequently underwent Filippo's procedure with resection of sigmoid tumor and end colostomy, postprocedure patient is doing well tolerating diet colostomy is functioning well, therefore being discharged home with VNA services , it is okay for her to take showers, netta to be removed approximately 10-14 days after surgery, by Dr. Bryant she is recommended follow-up with them in 1 week, she will need colostomy care: change appliance every 3-4 days and as needed, she has recommended no heavy lifting greater than 10 lb or strenuous activity. Patient noted to have bilateral lower extremity edema likely due to anemia,/venous insufficiency , chest x-ray unremarkable no evidence of CHF. Acute hypokalemia likely due to GI loss and due to IV fluids, repleted, recommend close BMP follow up as outpatient. Acute on chronic Microcytic anemia Likely secondary to colon mass/no acute GI blood loss noted, received 1 unit of packed RBC hematocrit improved, recommend iron supplements twice daily. Time Attestation Discharge Coordination Time (in mins): 40 Quality: Safe Use of Opioids Does Pt have an Active Cancer Diagnosis on the Problem List?: No Quality: Stroke Does the patient have a stroke diagnosis?: No Physical Exam Vital Signs: Vital Signs: Last Vital Signs Temp 97.4 F 03/22/24 07:59 Pulse 77 03/22/24 07:59 Resp 16 03/22/24 07:59 BP 129/62 03/22/24 07:59 Pulse Ox 93 03/22/24 07:59 O2 Del Method Room Air 03/22/24 07:59 O2 Flow Rate 4 03/18/24 15:10 BMI result Body Mass Index 22.1 Const: Other: General alert x3, in no acute distress. Neck supple no JVD. CVS regular rate rhythm, Respiratory lungs clear to auscultation, no respiratory distress, no wheeze, no rhonchi. Gastrointestinal abdomen soft incision clean and intact, ostomy pink with stool in bag Extremities bilateral lower extremity edema improved Neuro non focal Skin no rash Psych appropriate affect DS: Data Data Completed and Pending Completed studies during hospitalization [Text1]: Pending at discharge 03/17/24 14:38 Surgical [PTH] Routine Pending studies at discharge: Pending at discharge 03/18/24 13:55 Surgical [PTH] Routine Labs on day of discharge: Laboratory Results - last 24 hr 03/22/24 07:47 Potassium 3.2 L Discharge Plan Discharge Anticipated Discharge Date/Time: 03/22/24 10:47 Patient Disposition: Home Health Service Discharge Diagnosis: Obstructive sigmoid carcinoma Status post sigmoid resection with Filippo's procedure Acute hypokalemia Acute on chronic anemia Referrals: [facility] [Outside] - 3-5 Days (HOME SERVICES FOR LONG-TERM FOR OSTOMY MANAGEMENT AND TEACHING: A NURSE WILL CALL YOU TO SET UP FIRST VISIT) Earl Bryant MD [Physician] - 1 Week Shyann Nobles MD [Primary Care Provider] - 1 Week Discharge Medications: New oxycodone 5 mg Tablet 5 mg PO Q4H PRN (Reason: Pain, Moderate(Pain Scale 4-6)) Qty: 15 0RF Rx Instructions: Partial Fill upon patient request. ferrous sulfate 324 mg (65 mg iron) Tablet,Delayed Release (Dr/Ec) 324 mg PO BIDWM Qty: 60 0RF Discharge Orders: Discharge Order (Routine); Ordered 03/22/24 Ordered By: Ivis Schmitz Diet: Regular diet Activity on Discharge: As tolerated Stand Alone Forms: Patient Portal Discharge page Print Language: Togolese Other Ambulatory Orders: Basic Metabolic Panel (Routine) Timeframe: 2 Days Facility: [facility] - Location: Laboratory Ordered By: Ivis Schmitz Activity Restrictions/Additional Instructions: Ok to shower. You have netta closing your incision and these will be removed approximately 10-14 days after surgery. Colostomy care: change appliance every 3-4 days and as needed. NO HEAVY LIFTING (>10lbs) or strenuous activity. Follow up in the office in [address] Bryant. ([phone]) Call Your Doctor If: -Your temperature exceeds 101.5? F -You experience excessive pain or swelling -You have an unexpected reaction to medication -You have excessive bleeding -You experience continued vomiting/nausea -Your incision begins to separate -Your incision shows signs of infection such as increased redness, swelling, excessive pain, drainage (light blood or clear fluid is normal) or heat Care Plan Goals: Take iron supplements 1 tablet twice daily with vitamin-C 250 mg twice daily Take oxycodone 1 tablet q.4 hours as needed for [id number] pain Check potassium level in 2 days and follow-up with PCP Health Concerns: Pathology report of sigmoid mass pending follow-up with primary care physician/General surgery to obtain result Plan of Treatment: Follow-up with Dr. Bryant in 1 week call for appointment. Follow-up with primary care physician. Assessment: As above
[2024-03-22] MEDS: Potassium Chloride ER 20 MEQ TAB.ER.PRT 40 MEQ PO (11:11)
--- NOTE | 2024-03-22 12:51 | HO.OSTOMY ---
Ostomy Consult : Initial 73yr old?Female admitted to [facility] on 03/16/24 12:10 for abd pain and discomfort - See progress notes and H&P for detailed history.? Ostomy consult placed for end colostomy creation by Dr. Bryant on 03/18/24. ? Patient is Icelandic speaking ?- daughter is able to translate and prefer to instead of automotive parts interpreter.? Patient reports she has emptied her pouch independently while direct care RN was on standby. Yesterday the patient met with the outpatient Ostomy nurse and she provided [employer]. We discussed today and patient and daughter report understanding of ostomy creation and future care. ? We discussed her pain control being adequate at the current moment and she reports she is ambulating in her room and the hallways. We began by discussing general knowledge about the Colostomy and questions she had. ?We discussed opening and closing the ostomy pouch. She was able to independently provide a return demonstration on an empty pouch. We discussed the importance of emptying pouch when 1/3 to 1/2 full, how to empty pouch, and lining water with toilet paper to prevent splash back. With an empty Coloplast pouch she performed a demonstration. ? She was also educated on when to contact cotton bag clipper/Dr Bryant's office/seek emergency medical treatment. Patient was given some ostomy pouches and paste for transition to home. Dr Bryant?s office will place order through [place] for supplies for home delivery. ?Reviewed written education with patient and left at bedside for further review. ? Permission was granted for pouch assessment and a leak was noted?at the 3 o'clock area - she observed this sign for future?independent observation for s/s of leaking. Of importance the pouch was applied side facing and not at all conducive to independent emptying. She understands need for pouch change. ?? She was changed into a Coloplast 97001, 1 Piece cut to fit 40mm.? MCJ intact, Stoma red / pink and miost, edematous. ?She participated in the pouch change. ? She had some questions that led to further discussion.? Linda along with her daughter seemed to have great understanding of care and material presented. ?After the pouch was changed she was able to open close on the pouch attached to her abdomen without coaching. ?She reported having no questions at this time. ?Patient will benefit from VNA services at time of d/c. All questions and concerns addressed at this time. We discussed the following steps: 1. Empty pouch before pouch change 2. Remove pouch using push/pull technique from top to bottom 3. Cleanse stoma and skin with tap water only - no soap or baby wipes 4. Pat dry 5. Measure stoma and cut new pouch no more than 1/8 inch larger than stoma and no smaller than stoma 6. If instructed by your ostomy nurse apply paste seal to the size of the stoma and press onto skin around stoma (up to the edge of the stoma but not onto the stoma) 7. Press the new pouch into place and hold for several minutes (close pouch tail) 8. Empty pouch when 1/3 to 1/2 full 9. Change pouch twice weekly on a schedule (for example, every Thursday and ) and as needed for any leaking (feels like intense itch or burn at edge of stoma) 10. May order pre-cut pouches (already cut to size of stoma) once stoma measures the same size consistently. ?
--- NOTE | 2024-03-22 13:23 | P.F2F_ITS ---
Service Date Service Date: 03/22/24 Encounter Date of encounter: 03/22/24 Reasons for Services Signs and symptoms assessed: Status post colectomy now with new colostomy, requiring colostomy care Reason for assisted: wound care and other Homebound: Leaving the home is medically contraindicated at this time without the asist of a device and/or another person due th the listed conditions above and below. Reason homebound: weakness related to hospital stay Certification: Based on the above findings, I certify that this patient is confined to the home and needs intermittent assisted care, physical therapy and/or speech therapy, or continues to need occupational therapy. The patient is under my care, and I have initiated the establishment of the plan of care. The patient will be followed by a physician who will periodically review the plan of care. Time Spent With Patient Time: Total time managing care of this patient today ____ minutes.
--- NOTE | 2024-03-22 14:35 | MHC.CM.PN ---
IMM 03/22/24 Patient is discharged today with [facility]. She has an appointment with PCP 04/20/24. Patient and family have been notified that Home care services will stop if appointment is not kept. Ostomy supplies were provided to the patient. Home services will start within 24-48 hrs. Ostomy supplies will be ordered by [facility]. Family provided transportation home.
--- NOTE | 2024-03-23 10:42 | W.PM.OPN ---
Operative Note Operative Note Date of Service: 03/18/24 Colon Resection Tumor location: Sigmoid colon Extent of lymphovascular resection Sigmoid colon: High ligation of inferior mesenteric artery with associated mesentery General Surg. - Synoptic Notes Colon Resection Tumor location: Sigmoid colon Extent of Lymphovascular Resection: Sigmoid colon: High ligation of inferior mesenteric artery with associated mesentery
== END 2024-03-22 13:16 | disposition home health service (06) | DRG 330 ==
LOC: HO.ED 03-16 08:39 → HO.EDOVER 03-16 12:34 → HO.S3 03-16 14:49
PROVIDERS: Hospitalist; Internal Medicine; Surgery; Admitting Provider Student in an Organized Health Care Education/Training Program; Emergency Provider Emergency Medicine Emergency Medical Services; PCP Internal Medicine; Visit Provider Hospitalist
PROC: 0DJD8ZZ Inspection of Lower Intestinal Tract, Via Natural or Artificial Opening Endoscopic (ICD-10-PCS; CPT 45330; principal; 2024-03-17 13:30)
PROC: 0D1N0Z4 Bypass Sigmoid Colon to Cutaneous, Open Approach (ICD-10-PCS; principal; 2024-03-18 12:30)
DX: C18.7 Malignant neoplasm of sigmoid colon (principal); K56.690 Other partial intestinal obstruction; K59.02 Outlet dysfunction constipation; D63.0 Anemia in neoplastic disease; E87.6 Hypokalemia; Z20.822 Contact with and (suspected) exposure to COVID-19
CPT/HCPCS: 36415; 71045; 74177; 80048; 80053; 81001; 81003; 82378; 83540; 83690; 83880; 84132; 85025; 85027; 85610; 86078; 86850; 86900; 86901; 86923; 87635; 88305; 88307; 88309; 88341; 88342; 88360; 93005; 99285; C1758; J1100; J2270; J2405; J2704; J2795; J3010; J3480; P9016; Q9967

== ENCOUNTER → 2024-03-15 22:31 | Outpatient (BNV) | payer MEDICARE, SELFPAY | PROVIDERS: Emergency Provider Emergency Medicine Emergency Medical Services; Visit Provider Surgery | DX: K62.89 Other specified diseases of anus and rectum (principal); K56.600 Partial intestinal obstruction, unspecified as to cause; D50.9 Iron deficiency anemia, unspecified; K59.02 Outlet dysfunction constipation; R10.32 Left lower quadrant pain | CPT/HCPCS: 44206; 99024; 99222; 99232; 99499 ==

== ENCOUNTER → 2024-03-16 05:16 | Outpatient (BNV) | payer MEDICARE, SELFPAY | PROVIDERS: Admitting Provider Student in an Organized Health Care Education/Training Program; Emergency Provider Emergency Medicine Emergency Medical Services; Visit Provider Internal Medicine | DX: I49.3 Ventricular premature depolarization (principal) | CPT/HCPCS: 93010 ==

== ENCOUNTER → 2024-03-16 12:10 | Outpatient (BNV) | payer MEDICARE, SELFPAY | PROVIDERS: Admitting Provider Student in an Organized Health Care Education/Training Program; Emergency Provider Emergency Medicine Emergency Medical Services; Visit Provider Student in an Organized Health Care Education/Training Program | DX: K63.89 Other specified diseases of intestine (principal) | CPT/HCPCS: 99223; 99232; 99233; 99239; G0180 ==

== ENCOUNTER 2024-03-29 13:55 | Outpatient (REF) | payer MEDICARE, SELFPAY ==
[2024-03-29 16:19] LABS: Anion Gap 16 (12-20); Blood Urea Nitrogen 4 mg/dL (9-16); Calcium 8.5 mg/dL (8.4-10.2); Carbon Dioxide 22 mmol/L (22-29); Chloride 108 mmol/L (96-108); Estimated Glomerular Filt Rate > 60; Glucose Random 85 mg/dL (60-115); Potassium 2.7 mmol/L (3.3-5.1); Sodium 143 mmol/L (135-145)
== END 2024-03-29 13:56 | disposition home or self-care (01) ==
LOC: HO.LAB 13:55
PROVIDERS: Absent Provider Hospitalist; PCP Internal Medicine; Visit Provider Surgery
DX: E87.6 Hypokalemia (principal); C18.7 Malignant neoplasm of sigmoid colon
CPT/HCPCS: 36415; 80048; 99212

== ENCOUNTER 2024-03-29 13:55 | Outpatient (AMB) | payer MEDICARE, SELFPAY ==
[2024-03-29 14:04] VITALS: BP 121/60; PULSE 81; BMI 18.4
--- NOTE | 2024-03-29 14:04 | A.OFFVIS_ITS ---
Vital Signs 03/29/24 14:04 Height 5 ft 3 in Weight 104 lb BMI 18.4 BP 121/60 Blood Pressure Location Lt brachial Position Sitting Pulse 81 Intake Visit Reasons: S/p lap sig res, Filippo, small bowel res Intake Note: Patient is seen in office for post op assessment post laparoscopic sigmoid resection. Pt c/o: eating less quantity, denies any concerns with the incisicion, denies n/v/d/c Op: 03/18/24 Loss Prevention Supervisor Required: No Accompanied by: Family/Other Allergies No Known Allergies Allergy (Verified 03/29/24 14:06) Medication List - Last Reconciled 03/29/24 by Earl Bryant MD ferrous sulfate 324 mg PO BIDWM HPI Comments Details: Patient returns for postop visit following Filippo procedure. She initially did not have much of an appetite but is much improved over the last 2 days. She denies any significant abdominal pain. The colostomy has been functioning well with mainly liquid stool. She denies any fever or chills. Visiting nurses have change the ostomy was today. [facility] Surgical History S/P laparoscopic-assisted sigmoidectomy (03/18/24) History of total left hip arthroplasty Social History Household Members: Spouse Housing: Apartment Do you presently have visiting nurse or other home services: No Patient Tobacco Use Status: Never used Tobacco service: No Physical Exam Vital Signs: Last Vital Signs Pulse 81 03/29/24 14:04 BP 121/60 03/29/24 14:04 BMI result Body Mass Index 18.4 Const General: comfortable Nutritional Appearance: well nourished Orientation/consciousness: patient oriented x3 Limitations: no limitations Resp Effort & Inspection: normal respiratory effort GI Other: Trocar and lower midline incision is clean, dry, and intact. Ostomy is pink and patent. Axis removed and Steri-Strips applied. Inspection: Yes normal to inspection Palpation (GI): Soft to palpation, nontender, no guarding and not rigid Neuro General: patient oriented x3 Assessment & Plan Assessment & Plan (1) Adenocarcinoma of sigmoid colon: Code(s): C18.7 - Malignant neoplasm of sigmoid colon Category: Medical Plan Pathology results were reviewed in detail with the patient and her son. I recommended evaluation by Medical Oncology for possible adjuvant treatment. She should continue to avoid lifting greater than 10 lb and return in 1 month for follow-up examination. She is welcome to call sooner for any new concerns. Orders: Referrals 2 Hematology & Oncology Referral C18.7 - Malignant neoplasm of sigmoid colon Coding Level of Care Code Global (64633) Diagnoses Adenocarcinoma of sigmoid colon C18.7
== END 2024-03-29 14:20 | disposition home or self-care (01) ==
PROVIDERS: PCP Internal Medicine; Visit Provider Surgery
DX: C18.7 Malignant neoplasm of sigmoid colon (principal)
CPT/HCPCS: 99024

== ENCOUNTER → 2024-04-15 09:31 | Outpatient (BNV) | payer MEDICARE, SELFPAY | PROVIDERS: PCP Internal Medicine; Visit Provider Internal Medicine Medical Oncology | DX: C18.7 Malignant neoplasm of sigmoid colon (principal) | CPT/HCPCS: 99204 ==

== ENCOUNTER 2024-05-03 12:50 | Outpatient (AMB) | payer MEDICARE, SELFPAY ==
[2024-05-03 12:55] VITALS: BP 167/82; PULSE 88; BMI 17.6
--- NOTE | 2024-05-03 12:55 | A.OFFVIS_ITS ---
Vital Signs 05/03/24 12:55 Height 5 ft 3 in Weight 99 lb 4 oz BMI 17.6 BP 167/82 H Blood Pressure Location Rt brachial Position Sitting Pulse 88 Intake Visit Reasons: 1 mth follow up lap sig res, Filippo Intake Note: Patient is seen in office for one month follow up visit, post laparoscopic sigmoid resection. Pt c/o: 04/22/2024 had an appointment with Oncology, pt last had [facility]NA nurses service about 2 weeks ago. Cost And Risk Analysis Manager Required: No Accompanied by: Other Relationship Allergies No Known Allergies Allergy (Verified 05/03/24 13:05) HPI Comments Details: 73-year-old female patient status post sigmoid colectomy with end-colostomy on 04/15/2024 with an obstructing sigmoid colon cancer. She feels much improved with good appetite and regular bowel movements per ostomy. Her ostomy as decreased in size and she is now caring for herself. She denies abdominal pain, nausea or vomiting. There has been no bleeding noted around the colostomy. Her most recent blood work is much improved as well. She is still considering her options as far as chemotherapy, but is leaning towards not undergoing chemo therapy. [facility] Surgical History S/P laparoscopic-assisted sigmoidectomy (03/18/24) History of total left hip arthroplasty Social History Household Members: Spouse Housing: Apartment Do you presently have visiting nurse or other home services: No Patient Tobacco Use Status: Never used Tobacco service: No Current occupational status: retired Physical Exam Vital Signs: Last Vital Signs Pulse 88 05/03/24 12:55 BP 167/82 H 05/03/24 12:55 BMI result Body Mass Index 17.6 Const General: no acute distress Nutritional Appearance: well nourished Orientation/consciousness: patient oriented x3 Resp Effort & Inspection: normal respiratory effort GI Other: Midline incision is clean, dry, and intact. Ostomy is pink and patent. Small parastomal hernia palpable. Inspection: Yes normal to inspection Palpation (GI): Soft to palpation, nontender, no guarding and not rigid Neuro General: patient oriented x3 Extrem Other: No edema Assessment & Plan Assessment & Plan (1) Adenocarcinoma of sigmoid colon: Code(s): C18.7 - Malignant neoplasm of sigmoid colon Category: Medical Plan Overall patient is much improved with improved appetite and no abdominal pain. Her bowels are moving normally as well. We discussed closure of the colostomy after 3 months which would need to be delayed until the end of June or early July. She expressed understanding and agrees with the plan. Coding Level of Care Code Global (45994) Diagnoses Adenocarcinoma of sigmoid colon C18.7
== END 2024-05-03 13:25 | disposition home or self-care (01) ==
PROVIDERS: PCP Internal Medicine; Visit Provider Surgery
DX: C18.7 Malignant neoplasm of sigmoid colon (principal)
CPT/HCPCS: 99024

== ENCOUNTER → 2024-05-03 12:50 | Outpatient (BNVA) | payer MEDICARE, SELFPAY | PROVIDERS: PCP Internal Medicine; Visit Provider Surgery | DX: C18.7 Malignant neoplasm of sigmoid colon (principal); Z93.3 Colostomy status; Z98.890 Other specified postprocedural states | CPT/HCPCS: 99212 ==

== ENCOUNTER 2024-06-03 10:58 | Outpatient (AMB) | payer MEDICARE, SELFPAY ==
--- NOTE | 2024-06-03 11:00 | MHC.OFFVIS ---
Vital Signs 06/03/24 11:09 Height 5 ft Weight 101 lb 4 oz BMI 19.8 BP 138/68 Blood Pressure Location Lt brachial Position Sitting Pulse 92 Intake Visit Reasons: 1 mth follow up lap sig res, Filippo Intake Note: Patient is seen in office for one month follow up visit, post laparoscopic sigmoid resection, [place]. Pt c/o: doing well, however yesterday had stomach pain and vomit, unsure if was due to something she ate Head Sulfide Operator Required: No Accompanied by: Family/Other Allergies No Known Allergies Allergy (Verified 06/03/24 11:07) HPI Comments Details: 73-year-old female patient status post sigmoid colectomy with end-colostomy on 04/15/2024 with an obstructing sigmoid colon cancer. She feels much improved with good appetite and regular bowel movements per ostomy. Her ostomy as decreased in size and she is now caring for herself. She denies abdominal pain, but did have an episode of nausea and vomiting yesterday after eating ice cream. Today she feels much improved. There has been no bleeding noted around the colostomy. She saw Oncology at [facility] for a 2nd opinion. They recommended a 3 month course of chemotherapy and have decided to proceed with this. She was unsure if she could wait an additional 3 months to have her closure of colostomy but was assured that there is no window of opportunity to worry about and her ostomy can be closed at any point in the future. I agreed with proceeding with chemotherapy prior to closure of colostomy. We also discussed the need for colonoscopy prior to closure of colostomy and she expressed understanding. [facility] Surgical History S/P laparoscopic-assisted sigmoidectomy (03/18/24) History of total left hip arthroplasty Social History Household Members: Spouse Housing: Apartment Do you presently have visiting nurse or other home services: No Patient Tobacco Use Status: Never used Tobacco service: No Current occupational status: retired Review of Systems Const All systems reviewed & are unremarkable except as noted in HPI and below Physical Exam Vital Signs: Last Vital Signs Pulse 92 06/03/24 11:09 BP 138/68 06/03/24 11:09 BMI result Body Mass Index 19.8 Const General: no acute distress Nutritional Appearance: well nourished Orientation/consciousness: patient oriented x3 Limitations: no limitations Resp Effort & Inspection: normal respiratory effort GI Other: Ostomy site is functioning well. Midline incision is clean, dry and intact without hernia or infection Inspection: Yes normal to inspection Palpation (GI): Soft to palpation, nontender, no guarding and not rigid Neuro General: patient oriented x3 Extrem Other: No edema Assessment & Plan Assessment & Plan (1) Adenocarcinoma of sigmoid colon: Code(s): C18.7 - Malignant neoplasm of sigmoid colon Category: Medical Plan 73-year-old female patient returning status post sigmoid colectomy for an obstructing colon cancer. She is now prepared for chemotherapy over three-month period at [facility]. I recommended a follow-up examination in approximately 4 months which would be following her completion of chemotherapy. Arrangements will be made for colonoscopy and closure of colostomy at that time. She expressed understanding and agrees with the plan. Coding Level of Care Code Global (67371) Diagnoses Adenocarcinoma of sigmoid colon C18.7
[2024-06-03 11:09] VITALS: BP 138/68; PULSE 92; BMI 19.8
== END 2024-06-03 11:31 | disposition home or self-care (01) ==
PROVIDERS: PCP Internal Medicine; Visit Provider Surgery
DX: C18.7 Malignant neoplasm of sigmoid colon (principal)
CPT/HCPCS: 99024

== ENCOUNTER → 2024-06-03 10:58 | Outpatient (BNVA) | payer MEDICARE, SELFPAY | PROVIDERS: PCP Internal Medicine; Visit Provider Surgery | DX: C18.7 Malignant neoplasm of sigmoid colon (principal); Z48.815 Encounter for surgical aftercare following surgery on the digestive system; Z98.890 Other specified postprocedural states | CPT/HCPCS: 99212 ==

== ENCOUNTER 2024-09-30 10:54 | Outpatient (AMB) | payer MEDICARE, SELFPAY ==
--- NOTE | 2024-09-30 11:00 | MHC.OFFVIS ---
Vital Signs 09/30/24 11:04 Height 5 ft Weight 96 lb BMI 18.7 BP 146/67 H Blood Pressure Location Lt brachial Position Sitting Pulse 87 Intake Visit Reasons: 4 mth follow up lap sig res, Filippo Intake Note: Patient is seen in office for follow up visit, post laparoscopic sigmoid resection, [place]. Pt c/o: just done with meds and last week finish her infusion, not eating as much since her tx Accompanied by: Family/Other Allergies No Known Allergies Allergy (Verified 09/30/24 11:02) Medication List - Last Reconciled 09/30/24 by Earl Bryant MD No Known Home Meds HPI Comments Details: 74-year-old female patient status post sigmoid colectomy with end-colostomy on 04/15/2024 with an obstructing sigmoid colon cancer. She feels much improved with good appetite and regular bowel movements per ostomy. Her ostomy as decreased in size and she is now caring for herself. She denies abdominal pain, but did have an episode of nausea and vomiting yesterday after eating ice cream. Today she feels much improved. There has been no bleeding noted around the colostomy. She saw Oncology at [facility] for a 2nd opinion. They recommended a 3 month course of chemotherapy and have decided to proceed with this. She was unsure if she could wait an additional 3 months to have her closure of colostomy but was assured that there is no window of opportunity to worry about and her ostomy can be closed at any point in the future. I agreed with proceeding with chemotherapy prior to closure of colostomy. We also discussed the need for colonoscopy prior to closure of colostomy and she expressed understanding. She returns today following completion of the chemotherapy which she tolerated fairly well. She did have some nausea and vomiting which improved with Zofran. Her last infusion was last week. [facility] Medical History Adenocarcinoma of sigmoid colon Surgical History S/P laparoscopic-assisted sigmoidectomy (03/18/24) History of total left hip arthroplasty Social History Household Members: Spouse Housing: Apartment Do you presently have visiting nurse or other home services: No Patient Tobacco Use Status: Never used Tobacco service: No Current occupational status: retired Review of Systems Const All systems reviewed & are unremarkable except as noted in HPI and below Physical Exam Vital Signs: Last Vital Signs Pulse 87 09/30/24 11:04 BP 146/67 H 09/30/24 11:04 BMI result Body Mass Index 18.7 Const General: no acute distress Nutritional Appearance: well nourished Orientation/consciousness: patient oriented x3 Limitations: no limitations Resp Effort & Inspection: normal respiratory effort GI Other: Ostomy site is functioning well. Midline incision is clean, dry and intact without hernia or infection Inspection: Yes normal to inspection Palpation (GI): Soft to palpation, nontender, no guarding and not rigid Neuro General: patient oriented x3 Extrem Other: No edema Assessment & Plan Assessment & Plan (1) Adenocarcinoma of sigmoid colon: Code(s): C18.7 - Malignant neoplasm of sigmoid colon Category: Medical Plan 74-year-old female patient returning status post sigmoid colectomy for an obstructing colon cancer. She completed chemotherapy over three-months at [facility] and tolerated this fairly well. I recommended a completion colonoscopy to evaluate the remaining colon proximal to the colostomy. Hopefully we can proceed to closure of colostomy the day following colonoscopy so the prep would not be repeated. After discussion of the procedure, risks, and alternatives, she consents to the hand assisted laparoscopic closure of colostomy. Orders: Referrals Gastroenterology Referral C18.7 - Malignant neoplasm of sigmoid colon Coding Level of Care Code Est Pt Level 4 (57844) Diagnoses Adenocarcinoma of sigmoid colon C18.7
[2024-09-30 11:04] VITALS: BP 146/67; PULSE 87; BMI 18.7
== END 2024-09-30 11:15 | disposition home or self-care (01) ==
PROVIDERS: PCP Internal Medicine; Visit Provider Surgery
DX: C18.7 Malignant neoplasm of sigmoid colon (principal)
CPT/HCPCS: 99214

== ENCOUNTER → 2024-09-30 10:54 | Outpatient (BNVA) | payer MEDICARE, SELFPAY | PROVIDERS: PCP Internal Medicine; Visit Provider Surgery | DX: C18.7 Malignant neoplasm of sigmoid colon (principal) | CPT/HCPCS: 99212 ==

== ENCOUNTER 2024-10-30 18:00 | Inpatient (IN) | payer MEDICARE, SELFPAY ==
--- NOTE | ~2024-10-30 | CT_ITS ---
EXAMINATION: CT ABDOMEN AND PELVIS WITH CONTRAST CLINICAL INFORMATION: Small bowel obstruction on October 26 COMPARISON: CT abdomen pelvis 03/16/2024 TECHNIQUE: Multidetector volumetric imaging was performed from the superior aspect of the liver through the pubic symphysis with intravenous contrast. A total of 85 mL of 50 was utilized for the study. Sagittal and coronal reformatted images were obtained on the technologist's workstation. This CT examination was performed using dose optimization techniques as appropriate, variously including the following: *Automated exposure control *Adjustment of mA and/or kV according to patient size (this includes techniques or standardized protocols for targeted exams where dose is matched to indication/reason for exam; i.e. extremities or head) *Use of iterative reconstruction technique DLP: 287 mGy-cm FINDINGS: LUNG BASES: There is mild emphysema. Round atelectasis is present at the left lung base LIVER, GALLBLADDER, AND BILIARY TREE: The liver is normal in size, shape, and attenuation. No focal hepatic lesion or biliary ductal dilatation is present. The gallbladder is distended but otherwise unremarkable with no evidence of radiopaque gallstones, gallbladder wall thickening, or obvious pericholecystic inflammatory changes. PANCREAS: Unremarkable. SPLEEN: Unremarkable. ADRENAL GLANDS: Unremarkable. KIDNEYS AND URETERS: The kidneys are normal in size, shape, and attenuation. No hydronephrosis, hydroureter, or calculi seen. BLADDER: Unremarkable. GASTROINTESTINAL TRACT: Patient appears to have undergone a sigmoidectomy and partial left colectomy since the prior study with a right mid abdominal colostomy. There are multiple dilated loops of small bowel seen the largest measuring about 4.2 cm head in the mesentery, there is an area of soft tissue fullness where believe one can see a transition point from dilated to nondilated bowel (3:50-55+ sagittal mancia images) ABDOMINAL WALL: There is a right inguinal hernia containing fat with some stranding as well as a small amount of fluid similar to prior. LYMPH NODES: No retroperitoneal lymphadenopathy VASCULAR: Unremarkable. PELVIC VISCERA: The uterus is not seen. An abnormal adnexal mass is not detected. No free intraperitoneal fluid is present. OSSEOUS STRUCTURES: There is a lumbar scoliosis convex to the right. Degenerative changes are present most marked from L3 through S5. There is grade 1 anterolisthesis of L4 upon L5 and L3 upon L4. A left total hip prosthesis is present. There is a compression fracture of the superior endplate of L2 CT/CT abdomen pelvis w IV con IMPRESSION: 1. Status post sigmoidectomy and partial left colectomy with right mid abdominal colostomy. 2. There are multiple dilated loops of small bowel with a transition point in the mesentery as described above. 3. Other incidental findings as described above. Fleischner guidelines were followed. This critical result was discussed with Rozina Mccoy at 12:50 AM on 10/31/2024 and it was ascertained that the content and urgency of the report was understood at the time of direct communication. Electronically signed by: Zachariah Nolan MD 10/31/2024 12:58 AM JOSE C
--- NOTE | 2024-10-30 18:03 | ED_ITS ---
HPI - Abdominal Pain General Chief Complaint: General Medical Stated Complaint: obstruction in intestine, ref by pcp to come in Time Seen by Provider: 10/30/24 20:12 Source: patient Limitations: no limitations History of Present Illness ED Provider: Rozina sanchez PA-C HPI narrative: 74-year-old female with a history of adenocarcinoma of the sigmoid colon now status post sigmoid colectomy with end-colostomy on 04/15/2024 with an obstructing sigmoid colon cancer, who just completed chemotherapy 09/2024, with a recurrent bowel obstructions, presents with a bowel obstruction. Patient had a CT scan performed at [facility] 5 days ago, she was found to have an obstruction at that time. Patient has been having intermittent abdominal pain with distention. The pain becomes severe then dissipates. Associated nausea, and decreased output from her colostomy. Patient states she typically changes the colostomy several times a day, since she is found to be obstructed, she has only had to change it daily. Denies active vomiting or fever. Patient's symptoms are currently controlled. Patient's surgeon is Dr. Bryant, he advised she come to the ED for assessment and admission. Related Data Previous Rx's ?Medication ?Instructions ?Recorded erythromycin 500 mg tablet 1 g (2 x 500 mg) PO TID #6 tabs 09/30/24 neomycin 500 mg tablet 1 g (2 x 500 mg) PO TID 3 doses #6 09/30/24 tabs Allergies Allergy/AdvReac Type Severity Reaction Status Date / Time No Known Allergies Allergy Verified 10/30/24 18:10 Review of Systems Review of Systems Yes all other systems are reviewed and are negative Constitutional: Denies fatigue and Denies fever(s) Cardiovascular: Denies chest pain and Denies dyspnea Respiratory: Denies cough and Denies dyspnea Gastrointestinal: Reports abdominal pain, Reports nausea and Denies vomiting Endocrine: Denies fatigue PMFSH Past Medical History Attestation statement: The following information was validated with the patient. Medical History Adenocarcinoma of sigmoid colon Surgical History S/P laparoscopic-assisted sigmoidectomy (03/18/24) History of total left hip arthroplasty Social History Social History Household Members: Spouse Housing: Apartment Do you presently have visiting nurse or other home services: No Patient Tobacco Use Status: Never used Tobacco Smoked in Last 30 Days: No Use of substances other than those prescribed or required for medical reasons: No Advance Directives: Yes Advance Directives Information Provided: No Advance Directives on File: No Do you have a plan to hurt others: No Plan service: No Current occupational status: retired Physical Exam ED Vital Signs: Vital Signs - 24 hr 10/30/24 18:05 10/30/24 22:08 10/31/24 01:05 Temperature 98.3 F 98.1 F 98.8 F Pulse Rate 93 74 74 Respiratory Rate 18 18 18 Blood Pressure 118/64 103/52 L 109/55 L Pulse Oximetry 98 100 100 Oxygen Delivery Method Room Air Room Air Room Air BMI result Body Mass Index 15.7 Const Other: Alert, well-appearing Orientation/consciousness: patient oriented x3 Resp Other: Nonlabored respirations Cardio Other: Normal peripheral perfusion GI Other: Abdomen is soft, nondistended, mild generalized tenderness with palpation without guarding, there is a small amount of brown stool in the colostomy Skin Other: Warm dry no rash Neuro General: patient oriented x3, gait normal, no focal motor deficits and CN's II- XI intact bilaterally Psych Other: Calm cooperative Course Course Course Narrative: This is an RME performed by Danny Woods CNP: Additional HPI, ROS, PE not included below will be deferred to primary provider. patient is a 74-year-old female presents emergency department in March of 2024 diagnosed with colon cancer, due to an obstructing sigmoid mass she underwent Filippo's procedure with resection of sigmoid tumor and end colostomy. She had a CT of the abdomen and pelvis 10/26/24, through [facility], family contacted Dr. Bryant's office, she was advised that there is a bowel obstruction and she should come to the emergency department. elected not to come that day, but pain is worsening therefore she came today. Has associated nausea. Reports decreased output from colostomy bag but Also has not been eating very much. outpatient CT 10/26/2024 with impression: Apparently recurrent small bowel obstruction with a transition point located in the left lower quadrant, suspected to be secondary to adhesions rather than neoplasm. No free air or intramural air. No metastatic deposits apparent. Plan: Serum labs, urinalysis, +/- repeat imaging Consultations Consultation #1: paging for surgical consult, Dr. Guille Han would like a repeat CT scan, he will be placing admission orders. I will relay findings when they return Time: 20:18 Consultation #2: I message Dr. Han, he is aware of CT findings, he will place admission orders. Time: 01:12 Medical Decision Making Medical Decision Making MDM Narrative: 74-year-old female with a history of adenocarcinoma of the sigmoid colon now status post sigmoid colectomy with end-colostomy on 04/15/2024 with an obstructing sigmoid colon cancer, who just completed chemotherapy 09/2024, with a recurrent bowel obstructions, presents with a bowel obstruction. Patient had a CT scan performed at [facility] 5 days ago, she was found to have an obstruction at that time. Patient has been having intermittent abdominal pain with distention. The pain becomes severe then dissipates. Associated nausea, and decreased output from her colostomy. Patient states she typically changes the colostomy several times a day, since she is found to be obstructed, she has only had to change it daily. Denies active vomiting or fever. Patient's symptoms are currently controlled. Patient's surgeon is Dr. Bryant, he advised she come to the ED for assessment and admission. Problem: Known bowel obstruction History: Per patient I have considered the following differential diagnoses: Bowel obstruction Plan: It is known she has an obstruction, I reached out to Dr. Han, he would like the CT scan repeated. Right now, clinically the patient is not obstructed, her abdomen is not distended, she is not nauseous she is not vomiting, she has no pain, she has stool in the colostomy. There was no indication for an NG-tube. Screening labs were obtained. I have independently reviewed the following tests: Labs: Slight leukocytosis, not anemic, no electrolyte abnormality, bilirubin slightly elevated at 1.3 [address] LFTs are normal CT abdomen and pelvis: CT/CT abdomen pelvis w IV con IMPRESSION: 1. Status post sigmoidectomy and partial left colectomy with right mid abdominal colostomy. 2. There are multiple dilated loops of small bowel with a transition point in the mesentery as described above. 3. Other incidental findings as described above. Fleischner guidelines were followed. Lab Data 10/30/24 18:22 10/30/24 18:22 Labs: Lab Results 10/30/24 Range/Units 18:22 WBC 11.4 H (4.8-10.8) X10*3/uL RBC 3.45 L D (4.20-5.50) X10*6/uL Hgb 10.9 L (12.0-16.0) g/dl Hct 32.1 L (37.0-47.0) % MCV 93.0 (80.0-98.0) fL MCH 31.6 (27.0-33.0) pg MCHC 34.0 (31.0-35.0) g/dl RDW 17.7 H (11.0-16.0) % Plt Count 289 (160-400) X10*3/uL MPV 9.3 L (9.4-12.3) fL Immature Gran % (Auto) 0.3 (0.0-0.4) % Neut % (Auto) 86.1 H (45-73) % Lymph % (Auto) 5.4 L (20-40) % Tompkins % (Auto) 7.9 (2-11) % Eos % (Auto) 0.1 (0-4) % Baso % (Auto) 0.2 (0-2) % Lymph # (Auto) 0.6 L (1.2-4.9) X10*3/uL Tompkins # (Auto) 0.9 (0.1-1.2) X10*3/uL Eos # (Auto) 0.0 (0.0-0.4) X10*3/uL Baso # (Auto) 0.0 (0.0-0.2) X10*3/uL Abs Immat Gran (auto) 0.04 H (0.00-0.03) X10*3/uL Absolute Neuts (auto) 9.8 H (2.0-8.3) x10*3/uL Absolute Nucleated RBC 0.000 (0.0-0.012) X10*3/uL Nucleated RBC % (auto) 0.0 (0.0-0.2) /100WBC Sodium 134 L (135-145) mmol/L Potassium 3.5 D (3.3-5.1) mmol/L Chloride 100 (96-108) mmol/L Carbon Dioxide 26 (22-29) mmol/L Anion Gap 12 (12-20) BUN 19 H (9-16) mg/dL Creatinine 0.72 (0.5-1.4) mg/dL Estim Creat Clear Calc 40.8 Estimated GFR > 60 Random Glucose 89 (60-115) mg/dL Lactic Acid 1.7 (0.5-2.0) mmol/L Calcium 8.8 D (8.4-10.2) mg/dL Total Bilirubin 1.3 H (0.0-1.0) mg/dL AST 20 (5-31) U/L ALT 9 (0-31) U/L Alkaline Phosphatase 73 (39-117) U/L Total Protein 7.0 (6.5-8.0) g/dL Albumin 3.8 (3.5-5.0) g/dL Lipase 22 (8-78) U/L Medications Administered Discontinued Medications Generic Name Dose Route Start Last Admin Trade Name Freq PRN Reason Stop Dose Admin Diatrizoate Meglum/Diatrizoate Sod 30 ml 10/30/24 21:08 10/30/24 21:09 Diatrizoate Meglumine, Sodium 30 Ml Solution PO 10/30/24 21:09 30 ml ONCE ONE Administration Iohexol 85 ml 10/30/24 23:32 10/30/24 23:32 Iohexol 350 Mg/Ml 100 Ml Infus..Btl IV 10/30/24 23:33 85 ml ONCE ONE Administration Discharge Plan Discharge Clinical Impression: Bowel obstruction Patient Disposition: Admitted As Inpatient Prescriptions: No Action neomycin 500 mg tablet 1 g PO TID Qty: 6 0RF Rx Instructions: administer at 1 PM, 2 PM, and 11 PM the day prior to surgery erythromycin 500 mg tablet 1 g PO TID Qty: 6 0RF Rx Instructions: administer at 1 PM, 2 PM, and 11 PM the day prior to surgery Print Language: Latvian
[2024-10-30 18:05] VITALS: BP 118/64; PULSE 93; RESP 18; TEMP 36.8; O2SAT 98; BMI 15.7
[2024-10-30 18:37] LABS: MANUAL DIFF FLAG NO
[2024-10-30 18:38] LABS: Basophils Percent Auto 0.2 % (0-2); Eosinophils Percent Auto 0.1 % (0-4); Hematocrit 32.1 % (37.0-47.0); Hemoglobin 10.9 g/dl (12.0-16.0); Imm Gran Abs Auto 0.04 X10*3/uL (0.00-0.03); Imm Gran Pct Auto 0.3 % (0.0-0.4); Lymphocytes Absolute Auto 0.6 X10*3/uL (1.2-4.9); Lymphocytes Percent Auto 5.4 % (20-40); Mean Corpuscular Hemoglobin 31.6 pg (27.0-33.0); Mean Platelet Volume 9.3 fL (9.4-12.3); Monocytes Absolute Auto 0.9 X10*3/uL (0.1-1.2); Monocytes Percent Auto 7.9 % (2-11); Neutrophils Absolute Auto 9.8 x10*3/uL (2.0-8.3); Neutrophils Percent Auto 86.1 % (45-73); Platelet Count 289 X10*3/uL (160-400); Red Blood Count 3.45 X10*6/uL (4.20-5.50); Red Cell Distribution Width 17.7 % (11.0-16.0); White Blood Count 11.4 X10*3/uL (4.8-10.8)
[2024-10-30 18:59] LABS: Lactic Acid 1.7 mmol/L (0.5-2.0)
[2024-10-30 19:00] LABS: Alanine Aminotransferase 9 U/L (0-31); Albumin Level 3.8 g/dL (3.5-5.0); Alkaline Phosphatase 73 U/L (39-117); Anion Gap 12 (12-20); Aspartate Amino Transferase 20 U/L (5-31); Bilirubin Total 1.3 mg/dL (0.0-1.0); Blood Urea Nitrogen 19 mg/dL (9-16); Calcium 8.8 mg/dL (8.4-10.2); Carbon Dioxide 26 mmol/L (22-29); Chloride 100 mmol/L (96-108); Creatinine Clr Calc Pharmacy 40.8; Estimated Glomerular Filt Rate > 60; Glucose Random 89 mg/dL (60-115); Lipase 22 U/L (8-78); Potassium 3.5 mmol/L (3.3-5.1); Sodium 134 mmol/L (135-145)
[2024-10-30] MEDS: Diatrizoate Meglumine, Sodium 30 ML SOLUTION PO (21:09)
[2024-10-30 22:08] VITALS: BP 103/52; PULSE 74; RESP 18; TEMP 36.7; O2SAT 100
[2024-10-30] MEDS: iohexoL 350 MG/ML 100 ML INFUS..BTL 85 ML IV (23:32)
--- NOTE | 2024-10-31 00:40 | PC.NURSE ---
Pts son Palomo requesting a call when pt gets a room, or with any updates. Palomo [phone]. Plan of care ongoing.
[2024-10-31 01:05] VITALS: BP 109/55; PULSE 74; RESP 18; TEMP 37.1; O2SAT 100
[2024-10-31] MEDS: Lactated Ringers 1,000 ML 80 ML IVCONT ×2 (01:41→16:09)
--- NOTE | 2024-10-31 01:44 | PC.NURSE ---
Pt medicated per jan. Plan of care ongoing.
[2024-10-31 05:56] VITALS: BP 102/48; PULSE 70; RESP 18; TEMP 36.7; O2SAT 100
[2024-10-31] MEDS: Heparin Sodium,Porcine 5,000 UNIT/ML VIAL 5000 UNIT SUBCUT ×3 (06:25→21:32)
--- NOTE | 2024-10-31 06:30 | PC.NURSE ---
Pt medicated per jan. Plan of care ongoing.
--- NOTE | 2024-10-31 07:32 | P.HPGS_ITS ---
History of Present Illness History of Present Illness Date of Service: 11/03/24 Chief complaint: small bowel obstruction Narrative: Linda Salas is a 74 year old female admitted in the ER for partial small-bowel obstruction. She has a history of Filippo's procedure done in Mar, [address] Bryant for obstructing sigmoid mass. 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 She was then told by her primary care physician to go to the ER because this suggested small-bowel obstruction. She did not go at that time as she says she really was feeling well and did not have any significant symptoms She currently denies any vomiting. She does state that she has output from her stoma. She does mentioned that this may have decreased over the past few weeks. She says she has occasional pain but this is not more than her usual. She says that although she had been told to go to the ER late last week, she did not want to a she had to attend bahai services over the weekend. She eventually decided to come last night. She says she feels okay this morning and denies any significant pain Review of Systems Constitutional: Constitutional: Denies chills and Denies fever(s) Cardiovascular: Cardiovascular: Denies chest pain, Denies dyspnea and Denies dyspnea on exertion Respiratory: Respiratory: Denies cough, Denies dyspnea and Denies dyspnea on exertion Gastrointestinal: Gastrointestinal: Denies hematochezia and Denies change in bowel habits Genitourinary: Genitourinary: Denies hematuria Musculoskeletal: Musculoskeletal: Denies back pain and Denies limited range of motion Neurologic: Denies focal weakness and Denies convulsions Psychiatric: Psychiatric: Denies depression and Denies mood swings [facility] Past Medical History Medical History (Updated 11/01/24 @ 08:25 by Earl Bryant MD) Small bowel obstruction Adenocarcinoma of sigmoid colon Surgical History Surgical History S/P laparoscopic-assisted sigmoidectomy (03/18/24) History of total left hip arthroplasty Social History Social History Household Members: Spouse Housing: Apartment Do you presently have visiting nurse or other home services: No Patient Tobacco Use Status: Never used Tobacco Advance Directives Date on File: 10/31/24 service: No Current occupational status: retired Meds Allergies Allergy/AdvReac Type Severity Reaction Status Date / Time No Known Allergies Allergy Verified 10/30/24 18:10 Active Medications: Current Medications Acetaminophen (Acetaminophen 325 Mg Tablet) 650 mg PO Q6H PRN PRN Reason: Pain, Mild (Pain Scale 1-3), fever or headache Heparin Sodium (Porcine) (Heparin Sodium,Porcine 5,000 Unit/Ml Vial) 5,000 unit SUBCUT Q8H [facility] Last Admin: 10/31/24 06:25 Dose: 5,000 unit Lactated Ringer's (Lr) 1,000 mls @ 80 mls/hr IVCONT .[id number] [facility] Last Admin: 10/31/24 01:41 Dose: 80 mls/hr Magnesium Hydroxide (Milk Of Magnesia 30 Ml Oral.Susp) 30 ml PO DAILY PRN PRN Reason: Constipation Melatonin (Melatonin 3 Mg Tablet) 6 mg PO BEDTIME PRN PRN Reason: Insomnia Ondansetron HCl (Ondansetron Hcl 4 Mg/2 Ml Vial) 4 mg IVPUSH Q6H PRN PRN Reason: nausea Sodium Chloride (0.9 % Sodium Chloride Flush 3 Ml Syringe) 3 ml IVFLUSH QSHIFT [facility] Home Medications ?Medication ?Instructions ?Recorded ?Confirmed ?Last Taken ?Type multivitamin 1 tab PO DAILY 10/31/24 10/31/24 7 Days Ago History ~10/24/24 Physical Exam Vital Signs: Vital Signs: Last Vital Signs Temp 98.1 F 10/31/24 05:56 Pulse 70 10/31/24 05:56 Resp 18 10/31/24 05:56 BP 102/48 L 10/31/24 05:56 Pulse Ox 100 10/31/24 05:56 O2 Del Method Room Air 10/31/24 05:56 BMI result Body Mass Index 15.7 Const: General: comfortable and no acute distress Orientation/consciousness: patient oriented x3 Neck: Neck: Yes no lymphadenopathy Resp: Auscultation: clear to auscultation bilaterally Cardio: Rhythm: regular rhythm GI: Other: Stoma with stools, no significant tenderness Inspection: No distended Palpation (GI): Soft to palpation, not firm, nontender and no guarding Neuro: General: patient oriented x3 Results Results Labs: Short CBC 10/30/24 Range/Units 18:22 WBC 11.4 H (4.8-10.8) X10*3/uL Hgb 10.9 L (12.0-16.0) g/dl Hct 32.1 L (37.0-47.0) % Plt Count 289 (160-400) X10*3/uL BMP 10/30/24 18:22 Sodium 134 L Potassium 3.5 D Chloride 100 Carbon Dioxide 26 BUN 19 H Creatinine 0.72 Calcium 8.8 D Liver Function 10/30/24 Range/Units 18:22 Total Bilirubin 1.3 H (0.0-1.0) mg/dL AST 20 (5-31) U/L ALT 9 (0-31) U/L Alkaline Phosphatase 73 (39-117) U/L Albumin 3.8 (3.5-5.0) g/dL Laboratory Results WBC 11.4 X10*3/uL (4.8-10.8) H 10/30/24 18:22 RBC 3.45 X10*6/uL (4.20-5.50) L D 10/30/24 18:22 Hgb 10.9 g/dl (12.0-16.0) L 10/30/24 18:22 Hct 32.1 % (37.0-47.0) L 10/30/24 18:22 MCV 93.0 fL (80.0-98.0) 10/30/24 18: MCH 31.6 pg (27.0-33.0) 10/30/24 18: MCHC 34.0 g/dl (31.0-35.0) 10/30/24 18: RDW 17.7 % (11.0-16.0) H 10/30/24 18:22 Plt Count 289 X10*3/uL (160-400) 10/30/24 18:22 MPV 9.3 fL (9.4-12.3) L 10/30/24 18:22 Immature Gran % (Auto) 0.3 % (0.0-0.4) 10/30/24 18: Neut % (Auto) 86.1 % (45-73) H 10/30/24 18: Lymph % (Auto) 5.4 % (20-40) L 10/30/24 18: [place] % (Auto) 7.9 % (2-11) 10/30/24 18: Eos % (Auto) 0.1 % (0-4) 10/30/24 18: Baso % (Auto) 0.2 % (0-2) 10/30/24 18: Lymph # (Auto) 0.6 X10*3/uL (1.2-4.9) L 10/30/24 18: [place] # (Auto) 0.9 X10*3/uL (0.1-1.2) 10/30/24 18: Eos # (Auto) 0.0 X10*3/uL (0.0-0.4) 10/30/24 18: Baso # (Auto) 0.0 X10*3/uL (0.0-0.2) 10/30/24 18: Abs Immat Gran (auto) 0.04 X10*3/uL (0.00-0.03) H 10/30/24 18: Absolute Neuts (auto) 9.8 x10*3/uL (2.0-8.3) H 10/30/24 18: Absolute Nucleated RBC 0.000 X10*3/uL (0.0-0.012) 10/30/24 18: Nucleated RBC % (auto) 0.0 /100WBC (0.0-0.2) 10/30/24 18:22 Sodium 134 mmol/L (135-145) L 10/30/24 18: Potassium 3.5 mmol/L (3.3-5.1) D 10/30/24 18: Chloride 100 mmol/L (96-108) 10/30/24 18: Carbon Dioxide 26 mmol/L (22-29) 10/30/24 18:22 Anion Gap 12 (12-20) 10/30/24 18:22 BUN 19 mg/dL (9-16) H 10/30/24 18:22 Creatinine 0.72 mg/dL (0.5-1.4) 10/30/24 18: Estim Creat Clear Calc 40.8 10/30/24 18:22 Estimated GFR > 60 10/30/24 18:22 Random Glucose 89 mg/dL (60-115) 10/30/24 18:22 Lactic Acid 1.7 mmol/L (0.5-2.0) 10/30/24 18:22 Calcium 8.8 mg/dL (8.4-10.2) D 10/30/24 18:22 Total Bilirubin 1.3 mg/dL (0.0-1.0) H 10/30/24 18:22 AST 20 U/L (5-31) 10/30/24 18:22 ALT 9 U/L (0-31) 10/30/24 18:22 Alkaline Phosphatase 73 U/L (39-117) 10/30/24 18:22 Total Protein 7.0 g/dL (6.5-8.0) 10/30/24 18:22 Albumin 3.8 g/dL (3.5-5.0) 10/30/24 18:22 Lipase 22 U/L (8-78) 10/30/24 18:22 Impressions Abdomen/Pelvis CT 10/30/24 23:20 IMPRESSION: 1. Status post sigmoidectomy and partial left colectomy with right mid abdominal colostomy. 2. There are multiple dilated loops of small bowel with a transition point in the mesentery as described above. 3. Other incidental findings as described above. Fleischner guidelines were followed. This critical result was discussed with Rozina Mccoy at 12:50 AM on 10/31/2024 and it was ascertained that the content and urgency of the report was understood at the time of direct communication. Electronically signed by: Zachariah Nolan MD 10/31/2024 12:58 AM [facility] Abdomen CT scan report/results: report reviewed and image reviewed CT scan - pelvis: report reviewed and image reviewed Assessment and Plan (1) Small bowel obstruction: Status: Acute She has a history of sigmoid resection and colostomy for T3 N1 adenocarcinoma. She actually has been doing well but she underwent an outpatient CT scan suggesting small bowel obstruction. She does admit to some nausea with decreased output Current exam is very benign. She feels well overall and denies any significant pain. She does have output from her stoma . Her repeat CT scan overnight does show dilated small bowel loops with suggestion of a transition point in the pelvis. She has does have air in the colon distally. Quality Stroke Does the patient have a stroke diagnosis?: No VTE Prior VTE?: No VTE Risk Level:: Medical - moderate - high VTE Device Contraindication: N/A - Device Ordered VTE Drug Contraindication: N/A - Med Ordered Procedures Date of Service Date of Service: 11/03/24
[2024-10-31 08:00] VITALS: BP 108/45; PULSE 73; RESP 16; TEMP 36.7; O2SAT 99
--- NOTE | 2024-10-31 08:00 | PHA.MEDREC ---
Pharmacy Consult ? Medication Reconciliation Pharmacy has completed the medication reconciliation. Spoke with pt at bedside to confirm medications.
[2024-10-31 10:00] VITALS: BP 108/58; PULSE 67; RESP 14; TEMP 36.8; O2SAT 99
--- NOTE | 2024-10-31 11:48 | MHC.CM.PN ---
PT LIVES WITH ,HAD NO SDRVIES HAS OWN RIDE HOME DC PLAN HOME NO SERVIES
[2024-10-31 13:50] LABS: Appearance Urine Clear; Color Urine Dark Yellow; Glucose Urine UA Negative (Negative); Leukocyte Esterase Urine Negative (Negative); Nitrite Urine Negative (Negative); PH 5.5 (5.0-9.0); Specific Gravity - Urine >= 1.030 (1.005-1.025); UMIC TRIGGER UACC YES; Urine Blood Negative (Negative); Urine Ketones >=160 mg/dL (Negative); Urine Protein 30 (1+) mg/dL (Neg-Trace)
[2024-10-31 13:53] LABS: Bacteria Urine None Seen (None Seen); Hyaline Casts Urine 0-2 /LPF (0-2); RBC Urine 0-2 /HPF (0-2); Squamous Epithelial Cell Urine 0-2 /HPF (0-2); WBC Urine 0-5 /HPF (0-5)
--- NOTE | 2024-10-31 15:10 | PM.EVENT ---
Event Note Date of Service: 10/31/24 Event Note: GI consult dictated presentation c/w partial small bowel obstruction feels better after hydration, no vomiting, tolerating clears agree with present management she has outpatient LGI endoscopy scheduled in Nov Time Spent With Patient Time: Total time managing care of this patient today ____ minutes.
--- NOTE | 2024-10-31 15:38 | CONS_ITS ---
DATE OF SERVICE: 10/31/2024 REFERRING PHYSICIAN: Dr. Bryant REASON FOR CONSULTATION: Possible small bowel obstruction by CT. HISTORY OF PRESENT ILLNESS: The patient is a pleasant 74-year-old woman, who was admitted to the hospital on October 30 after presenting to the emergency room with complaints of abdominal pain, nausea, and vomiting. She was hospitalized earlier in the year in March and underwent sigmoid resection with end colostomy and small bowel resection for an obstructing sigmoid carcinoma. Since that time, she has undergone chemotherapy, which she finished about a month ago. Approximately 1 week ago, she developed abdominal distention with nausea and vomiting. This persisted and she stopped eating. She was evaluated with a CT scanning on October 26, which was interpreted as showing a small bowel obstruction. She was advised to come to the emergency room for admission, but felt somewhat better. However, her symptoms recurred and she presented to the emergency room yesterday, where she was re-evaluated. CT scanning was done yesterday and shows multiple dilated loops of small bowel with a transition point consistent with a small bowel obstruction. She had been admitted to the hospital and is being given clear liquids. She has also been dehydrated and is getting IV fluids. She has not vomited since admission and reports feeling better today. She continues to have small amounts of stool in the ostomy bag. PAST MEDICAL HISTORY: 1. Colon cancer, T3 N1, status post chemotherapy and Filippo procedure. She is scheduled for outpatient lower GI tract endoscopy prior to colostomy takedown and reanastomosis. 2. Anemia. 3. Small bowel obstruction. CURRENT MEDICATIONS: Her current medication list is reviewed in the chart. ALLERGIES: THERE ARE NONE REPORTED. FAMILY HISTORY: This is reviewed with the patient and is noncontributory. SOCIAL HISTORY: There is no current tobacco, alcohol, or substance abuse. REVIEW OF SYSTEMS: SKIN: No pruritus. HEENT: Negative. CARDIOPULMONARY: No shortness of breath or chest pain. GASTROINTESTINAL: As above. She has had weight loss since her chemotherapy. GENITOURINARY: Negative. NEUROPSYCHIATRIC: Negative. PHYSICAL EXAMINATION: GENERAL: Shows a pleasant female, lying comfortably in bed. The history is obtained with her daughter, Scar. SKIN: Anicteric. HEENT: Shows no scleral icterus. NECK: Without lymphadenopathy and no thyromegaly. LUNGS: Clear. HEART: Shows regular rate and rhythm. S1, S2. No murmur. ABDOMEN: Soft without focal masses. There is a colostomy in the right lower quadrant with brown stool in the bag. EXTREMITIES: Show Venodyne devices. No edema present around these. LABORATORY DATA AND IMAGING STUDIES: Reviewed. IMPRESSION: Her presentation appears to be consistent with at least a partial small bowel obstruction based on her symptoms to date. She has not required an NG tube and has not vomited since admission. I agree with treating her conservatively with a clear liquid diet and advancing her diet as tolerated. If she does have recurrent symptoms, she may need NG tube placement. She is currently scheduled as an outpatient for lower GI tract endoscopy prior to surgical takedown of her colostomy and I recommend following up for this once her small bowel obstruction improves. Thanks for asking me to see her. I will follow her in the hospital with you. MD RADHIKA Chaney/GONSALO / [phone] MTDD
[2024-10-31 15:52] VITALS: BP 103/54; PULSE 67; RESP 15; TEMP 36.4; O2SAT 100
[2024-10-31 16:06] VITALS: BMI 15.7
--- NOTE | 2024-10-31 16:19 | MHC.CLN ---
NUTRITION DIET=CLEAR LIQUIDS. DAUGHTER PRESENT AT TIME OF VISIT. REPORTS THAT PATIENT HAS CONCERNS WITH DIGESTING LACTOSE SINCE CHEMO. ALSO, DAUGHTER CONCERNED WITH CHEMICALS IN ENSURE. AGREES TO ENSURE CLEAR. ENSURE CLEAR TID PROVIDES 720 KCALS, 24 G PROTEIN. QUALIFIES SEVERELY MALNOURISHED WITH SEVERE DEPLETION OF BODY FAT AND MUSCLE MASS; SIGNIFICANT WEIGHT LOSS -31% X 8 MONTHS; DX STAGE 3 COLON CANCER. FOLLOW FOR DIET ADVANCEMENT AND PO INTAKE. PROVIDE SUPPLEMENTS TOLERATED. SEE CLINICAL NUTRITION ASSESSMENT 10/31/24.
[2024-10-31 19:07] VITALS: BP 112/56; PULSE 69; RESP 16; TEMP 36.2; O2SAT 98
[2024-11-01] MEDS: Lactated Ringers 1,000 ML 80 ML IVCONT ×2 (03:25→16:39)
[2024-11-01 03:41] VITALS: BP 115/62; PULSE 67; RESP 16; TEMP 36.8; O2SAT 98
[2024-11-01] MEDS: Heparin Sodium,Porcine 5,000 UNIT/ML VIAL 5000 UNIT SUBCUT ×3 (05:45→21:11)
[2024-11-01 07:50] VITALS: BP 120/57; PULSE 63; RESP 16; TEMP 37.1; O2SAT 100
--- NOTE | 2024-11-01 08:23 | PM.PNGS ---
Subjective Subjective Date of Service: 11/01/24 Interval history: Patient reports feeling much improved this morning with no abdominal pain, nausea or vomiting. She tolerated the clear liquids without any additional pain, nausea or vomiting. Physical Exam Vital Signs: Vital Signs: Last Vital Signs Temp 98.7 F 11/01/24 07:50 Pulse 63 11/01/24 07:50 Resp 16 11/01/24 07:50 BP 120/57 L 11/01/24 07:50 Pulse Ox 100 11/01/24 07:50 O2 Del Method Room Air 11/01/24 07:50 BMI result Body Mass Index 15.7 Const: General: no acute distress Nutritional Appearance: well nourished Orientation/consciousness: patient oriented x3 Resp: Effort & Inspection: normal respiratory effort GI: Other: Soft, nondistended, nontender, ostomy with some stool although the bag is new. No rebound, guarding or rigidity. Neuro: General: patient oriented x3 Extrem: Other: No edema Objective Data Active Medications Acetaminophen (Acetaminophen 325 Mg Tablet) 650 mg PO Q6H PRN PRN Reason: Pain, Mild (Pain Scale 1-3), fever or headache Heparin Sodium (Porcine) (Heparin Sodium,Porcine 5,000 Unit/Ml Vial) 5,000 unit SUBCUT Q8H [facility] Last Admin: 11/01/24 05:45 Dose: 5,000 unit Documented By: FRANKY Lactated Ringer's (Lr) 1,000 mls @ 80 mls/hr IVCONT .[id number] [facility] Last Admin: 11/01/24 03:25 Dose: 80 mls/hr Documented By: FRANKY Magnesium Hydroxide (Milk Of Magnesia 30 Ml Oral.Susp) 30 ml PO DAILY PRN PRN Reason: Constipation Melatonin (Melatonin 3 Mg Tablet) 6 mg PO BEDTIME PRN PRN Reason: Insomnia Ondansetron HCl (Ondansetron Hcl 4 Mg/2 Ml Vial) 4 mg IVPUSH Q6H PRN PRN Reason: nausea Sodium Chloride (0.9 % Sodium Chloride Flush 3 Ml Syringe) 3 ml IVFLUSH QSHIFT [facility] Last Admin: 11/01/24 00:02 Dose: Not Given Documented By: FRANKY Non-Admin Reason: IV Running Labs 10/30/24 18:22 10/30/24 18:22 Labs: Laboratory Results - last 24 hr 10/31/24 13:41 Urine Color Dark Yellow Urine Appearance Clear Urine pH 5.5 Ur Specific [place] >= 1.030 H Urine Protein 30 (1+) H Urine Glucose (UA) Negative Urine Ketones >=160 Urine Blood Negative Urine Nitrite Negative Ur Leukocyte Esterase Negative Urine RBC 0-2 Urine WBC 0-5 Ur Squamous Epith Cells 0-2 Urine Bacteria None Seen Hyaline Casts 0-2 Procedures Date of Service Date of Service: 11/01/24 Progress Note: A&P Assessment and plan (1) Adenocarcinoma of sigmoid colon: Status: Acute Assessment and Plan: patient underwent sigmoid resection with Filippo procedure. She completed chemotherapy and is awaiting completion colonoscopy and closure of colostomy in November 2024. (2) Small bowel obstruction: Status: Acute Assessment and Plan: bowel obstruction appears to be improved, patient tolerated clear liquids without additional pain, nausea or vomiting. Will advance diet today. (3) Severe malnutrition: Status: Acute Assessment and Plan: Will dietary supplements to her regular diet. Time Spent With Patient Time: Total time managing care of this patient today ____ minutes. Quality Stroke Does the patient have a stroke diagnosis?: No VTE Prior VTE?: No VTE Risk Level:: Medical - moderate - high VTE Device Contraindication: N/A - Device Ordered VTE Drug Contraindication: N/A - Med Ordered
--- NOTE | 2024-11-01 14:37 | P.PNGI_ITS ---
Subjective Subjective Date of Service: 11/01/24 Interval History: pain better, no vomiting Critical Care Time (minutes): 0 Physical Exam 2 Vital Signs: Vital Signs: Last Vital Signs Temp 98.7 F 11/01/24 07:50 Pulse 63 11/01/24 07:50 Resp 16 11/01/24 07:50 BP 120/57 L 11/01/24 07:50 Pulse Ox 100 11/01/24 07:50 O2 Del Method Room Air 11/01/24 07:50 BMI result Body Mass Index 15.7 GI: Other: abdomen is soft and nontender, small amount of brown stool in ostomy bag. Objective Data Labs 10/30/24 18:22 10/30/24 18:22 Procedures Date of Service Date of Service: 11/01/24 Progress Note: A&P Assessment and plan (1) Small bowel obstruction: Status: Acute Assessment and Plan: appears to be improving advance diet as tolerated. Time Spent With Patient Time: Total time managing care of this patient today ____ minutes. Quality Stroke Does the patient have a stroke diagnosis?: No VTE Prior VTE?: No VTE Risk Level:: Medical - moderate - high VTE Device Contraindication: N/A - Device Ordered VTE Drug Contraindication: N/A - Med Ordered
[2024-11-01 15:36] VITALS: BP 119/55; PULSE 73; RESP 18; TEMP 37.1; O2SAT 97
[2024-11-01] MEDS: Docusate Sodium 100 MG CAPSULE PO (18:32)
[2024-11-01 19:18] VITALS: BP 110/57; PULSE 66; RESP 18; TEMP 36.9; O2SAT 98
[2024-11-02 03:32] VITALS: BP 128/60; PULSE 81; RESP 16; TEMP 36.4; O2SAT 99
[2024-11-02] MEDS: Heparin Sodium,Porcine 5,000 UNIT/ML VIAL 5000 UNIT SUBCUT (05:21)
[2024-11-02] MEDS: 0.9 % Sodium Chloride Flush 3 ML SYRINGE IVFLUSH (07:21)
[2024-11-02 07:28] VITALS: BP 115/59; PULSE 64; RESP 18; TEMP 36.6; O2SAT 100
--- NOTE | 2024-11-02 08:04 | PM.PNGS ---
Subjective Subjective Date of Service: 11/02/24 Interval history: Patient feels much improved with no abdominal pain, nausea or vomiting. She tolerated a regular diet without further pain or nausea Physical Exam Vital Signs: Vital Signs: Last Vital Signs Temp 97.9 F 11/02/24 07:28 Pulse 64 11/02/24 07:28 Resp 18 11/02/24 07:28 BP 115/59 L 11/02/24 07:28 Pulse Ox 100 11/02/24 07:28 O2 Del Method Room Air 11/02/24 07:28 BMI result Body Mass Index 15.7 Const: General: no acute distress Nutritional Appearance: well nourished Orientation/consciousness: patient oriented x3 Resp: Effort & Inspection: normal respiratory effort GI: Other: Soft, nondistended, nontender, ostomy with some stool although the bag is new. No rebound, guarding or rigidity. Neuro: General: patient oriented x3 Extrem: Other: No edema Objective Data Active Medications Acetaminophen (Acetaminophen 325 Mg Tablet) 650 mg PO Q6H PRN PRN Reason: Pain, Mild (Pain Scale 1-3), fever or headache Heparin Sodium (Porcine) (Heparin Sodium,Porcine 5,000 Unit/Ml Vial) 5,000 unit SUBCUT Q8H [facility] Last Admin: 11/02/24 05:21 Dose: 5,000 unit Documented By: OPAL Magnesium Hydroxide (Milk Of Magnesia 30 Ml Oral.Susp) 30 ml PO DAILY PRN PRN Reason: Constipation Melatonin (Melatonin 3 Mg Tablet) 6 mg PO BEDTIME PRN PRN Reason: Insomnia Ondansetron HCl (Ondansetron Hcl 4 Mg/2 Ml Vial) 4 mg IVPUSH Q6H PRN PRN Reason: nausea Sodium Chloride (0.9 % Sodium Chloride Flush 3 Ml Syringe) 3 ml IVFLUSH QSHIFT [facility] Last Admin: 11/02/24 07:21 Dose: 3 ml Documented By: IZAIAH Labs 10/30/24 18:22 10/30/24 18:22 Procedures Date of Service Date of Service: 11/02/24 Progress Note: A&P Assessment and plan (1) Small bowel obstruction: Status: Acute Plan 74-year-old female patient with a prior obstructing sigmoid adenocarcinoma status post Filippo procedure now returning with CT findings suggestive of a partial small-bowel obstruction. She has now resolved in her symptoms are improved. She feels comfortable to go home. Plan is to follow up in early November for completion colonoscopy followed by closure of colostomy. She should call sooner for any return of abdominal pain, nausea, or vomiting. She expressed understanding and agrees with the plan. Time Spent With Patient Time: Total time managing care of this patient today ____ minutes. Quality Stroke Does the patient have a stroke diagnosis?: No VTE Prior VTE?: No VTE Risk Level:: Medical - moderate - high VTE Device Contraindication: N/A - Device Ordered VTE Drug Contraindication: N/A - Med Ordered
--- NOTE | 2024-11-02 09:19 | MHC.CM.PN ---
Per MD patient medically cleared for dc home self care. Daughter will provide transport home ~11:30am. RN aware.
--- NOTE | 2024-11-02 09:34 | PM.DS ---
DS: Providers Provider Date of Service: 11/02/24 Date of admission: 10/31/24 01:05 Date of discharge: 11/02/24 Primary care physician: Shyann Nobles MD Attending physician on admission: Ranjit Han Consults: 10/31/24 10:58 Consult to Gastroenterology Routine Consulting Provider: Filiberto Chu Reason for consultation: Possible small bowel obstruction by CT Attending physician on discharge: Earl Bryant DS: Diagnosis Discharge Diagnosis (1) Small bowel obstruction: Status: Acute DS: Summary Hospital Course Hospital Course: HPI AT ADMISSION: Linda Salas is a 74 year old female admitted in the ER for partial small-bowel obstruction. She has a history of Filippo's procedure done in Mar, [address] Bryant for obstructing sigmoid mass. 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 She had undergone adjuvant chemotherapy in [facility]. She had a CAT scan done at [facility] last week as an outpatient. She was then told by her primary care physician to go to the ER because this suggested small-bowel obstruction. She did not go at that time as she says she really was feeling well and did not have any significant symptoms. She currently denies any vomiting. She does state that she has output from her stoma. She does mentioned that this may have decreased over the past few weeks. She says she has occasional pain but this is not more than her usual. She says that although she had been told to go to the ER late last week, she did not want to a she had to attend yazidism services over the weekend. She eventually decided to come last night. She says she feels okay this morning and denies any significant pain. CT scan suggesting small bowel obstruction with suggestion of transition point in the pelvis with air in the colon distally. HOSPITAL COURSE: Given the CT scan findings, admission for observation was recommended. She was overall clinically appearing well and therefore nonoperative measures were continued. Her symptoms improved and she began to have more flatus and ostomy output. Her diet was advanced as tolerated. She was seen by GI. On the day of discharge, she was tolerating a solid diet without nausea or vomiting, had ostomy output. Her abdomen was benign. She was discharged to home on 11/02/24 in stable condition. She completed chemotherapy and is awaiting completion colonoscopy followed by closure of colostomy in November 2024. Status at Discharge Functional status at discharge: independent ambulation Overall status at discharge: patient is progressing back to baseline Time Attestation Discharge Coordination Time (in mins): 30 Quality: Safe Use of Opioids Does Pt have an Active Cancer Diagnosis on the Problem List?: No Quality: Stroke Does the patient have a stroke diagnosis?: No Physical Exam Vital Signs: Vital Signs: Last Vital Signs Temp 97.9 F 11/02/24 07:28 Pulse 64 11/02/24 07:28 Resp 18 11/02/24 07:28 BP 115/59 L 11/02/24 07:28 Pulse Ox 100 11/02/24 07:28 O2 Del Method Room Air 11/02/24 07:28 BMI result Body Mass Index 15.7 Const: General: comfortable, no acute distress and alert Orientation/consciousness: patient oriented x3 Resp: Effort & Inspection: normal respiratory effort GI: Other: ostomy viable appearing with stool output Inspection: Yes distended (mild) Palpation (GI): Soft to palpation, nontender and no guarding Skin: General skin exam: no rashes or lesions noted Neuro: General: patient oriented x3 and moves all extremities DS: Data Data Completed and Pending Completed studies during hospitalization [Text1]: Procedures Bypass Sigmoid Colon to Cutaneous, Open Approach (03/16/24) Excision of Rectum, Via Natural or Artificial Opening Endoscopic, Diagnostic (03/16/24) Excision of Sigmoid Colon, Open Approach (03/16/24) Excision of Sigmoid Colon, Via Natural or Artificial Opening Endoscopic, Diagnostic (03/16/24) Excision of Small Intestine, Open Approach (03/16/24) Discharge Plan Discharge Anticipated Discharge Date/Time: 11/02/24 08:01 Patient Disposition: Home, Self-Care Discharge Diagnosis: Filippo procedure, partial small-bowel obstruction, resolved Referrals: Shyann Nobles MD [Primary Care Provider] - 1 Week Discharge Medications: Continued multivitamin Tablet 1 tab PO DAILY Discharge Orders: Discharge Order (Routine); Ordered 11/02/24 Ordered By: Earl Bryant Diet: Advance to usual diet Activity on Discharge: As tolerated Stand Alone Forms: Patient Portal Discharge page Print Language: Lithuanian Care Plan Goals: Resume normal diet and activity Health Concerns: Partial small-bowel obstruction possibly due to adhesions, now resolved Plan of Treatment: Patient admitted for bowel rest and IV hydration Assessment: Adenocarcinoma sigmoid colon status post sigmoid colectomy with Filippo procedure, readmitted for partial small-bowel obstruction, now resolved
== END 2024-11-02 12:03 | disposition home or self-care (01) | DRG 388 ==
LOC: HO.ED 20:37 → HO.EDOVER 10-31 01:11 → HO.S3 10-31 08:46
PROVIDERS: Nurse Practitioner Family; Admitting Provider Surgery; Emergency Provider Internal Medicine; PCP Internal Medicine; Visit Provider Surgery
DX: K56.600 Partial intestinal obstruction, unspecified as to cause (principal); E43 Unspecified severe protein-calorie malnutrition; Z68.1 Body mass index [BMI] 19.9 or less, adult; Z93.3 Colostomy status; Z85.038 Personal history of other malignant neoplasm of large intestine; Z79.899 Other long term (current) drug therapy
CPT/HCPCS: 36415; 74177; 80053; 81001; 83605; 83690; 85025; 99285; J1644; J7120; Q9967

== ENCOUNTER → 2024-10-31 01:05 | Outpatient (BNV) | payer MEDICARE, SELFPAY | PROVIDERS: Admitting Provider Surgery; Emergency Provider Internal Medicine; PCP Internal Medicine; Visit Provider Surgery | DX: K56.609 Unspecified intestinal obstruction, unspecified as to partial versus complete obstruction (principal) | CPT/HCPCS: 99222; 99232; 99239; 99499 ==

== ENCOUNTER 2024-11-22 06:17 | Day surgery (SDC) | payer MEDICARE, SELFPAY ==
[2024-11-07 11:19] VITALS: BMI 18.4
--- NOTE | 2024-11-21 09:37 | P.CONAN_ITS ---
Documented by User: Lorie Shirley NP 11/21/24 09:39 HPI - Anesthesia Eval Consult details Narrative: 74yo F for Colonoscopy via stoma s/p sigmoidectomy 03/2024 [facility] Active Problems Active Problems: All Active Problems Severe malnutrition (Acute) Hypokalemia (Acute) Microcytic anemia (Acute) Abdominal pain (Acute) Past Medical History Medical History Wears dentures History of chemotherapy Hx of flexible sigmoidoscopy (03/17/24) Small bowel obstruction Bowel obstruction Adenocarcinoma of sigmoid colon Family History Family history of problems with anesthesia: No Surgical History Surgical History S/P laparoscopic-assisted sigmoidectomy (03/18/24) History of total left hip arthroplasty History of Problems with Anesthesia: No Social History Social History Household Members: Spouse Housing: Apartment Are you a primary career information specialist to a significant other at home: No Do you presently have visiting nurse or other home services: No Patient Tobacco Use Status: Never used Tobacco e-Cigarette/Vaping Use: Never Used Use of substances other than those prescribed or required for medical reasons: No Are you DNR?: No Advance Directives: Yes Advance Directives Information Provided: No Advance Directives on File: Yes Advance Directives Date on File: 10/31/24 Recently lost weight without trying: Yes How much weight loss: 2-13 pounds Eating poorly because of decreased appetite: Yes Nutrition screen score: 4 Nutrition Risks: Surgical patient >75years service: No Current occupational status: retired [employer] Allergies Allergy/AdvReac Type Severity Reaction Status Date / Time No Known Allergies Allergy Verified 11/22/24 07:06 Home Medications ?Medication ?Instructions ?Recorded ?Confirmed ?Last Taken ?Type multivitamin 1 tab PO DAILY 10/31/24 11/22/24 7 Days Ago History ~10/24/24 Exam Height,Weight and Vital Signs: Height 5 ft Weight 42.638 kg Pertinent Lab Results Pertinent Lab Results: Laboratory Tests 10/30/24 18:22 WBC 11.4 H Hgb 10.9 L Hct 32.1 L Plt Count 289 Sodium 134 L Potassium 3.5 D Chloride 100 Carbon Dioxide 26 BUN 19 H Creatinine 0.72 Assessment and Plan Assessment Anesthesia Assessment: Chart Reviewed Final Anesthetic Review Family History of Problems with Anesthesia: No History of Problems with Anesthesia: No Documented by User: Nasrin Tai MD 11/22/24 08:36 PMFSH Past Medical History Medical History Wears dentures History of chemotherapy Hx of flexible sigmoidoscopy (03/17/24) Small bowel obstruction Bowel obstruction Adenocarcinoma of sigmoid colon Surgical History Surgical History S/P laparoscopic-assisted sigmoidectomy (03/18/24) History of total left hip arthroplasty Social History Social History Household Members: Spouse Housing: Apartment Are you a primary career information specialist to a significant other at home: No Do you presently have visiting nurse or other home services: No Patient Tobacco Use Status: Never used Tobacco e-Cigarette/Vaping Use: Never Used Use of substances other than those prescribed or required for medical reasons: No Are you DNR?: No Advance Directives: Yes Advance Directives Information Provided: No Advance Directives on File: Yes Advance Directives Date on File: 10/31/24 Recently lost weight without trying: Yes How much weight loss: 2-13 pounds Eating poorly because of decreased appetite: Yes Nutrition screen score: 4 Nutrition Risks: Surgical patient >75years service: No Current occupational status: retired Meds Allergies Allergy/AdvReac Type Severity Reaction Status Date / Time No Known Allergies Allergy Verified 11/22/24 07:06 Home Medications ?Medication ?Instructions ?Recorded ?Confirmed ?Last Taken ?Type multivitamin 1 tab PO DAILY 10/31/24 11/22/24 7 Days Ago History ~10/24/24 Exam Airway Mallampati Class: II TM Dist: >3cm Neck ROM: Poor Loose/Missing/Broken Teeth: Yes and Lower Heart: rrr Lungs: cta Assessment and Plan Assessment Anesthesia Assessment: Anesthesia Plan Discussed Final Anesthetic Review NPO: Yes ASA Class: III Final Preanesthetic Review: No Changes in Pt Med Stat, Meds/Allgs Chart Reviewed, Consent Obtained/Reviewed and Anes Risks/Benef Reviewed Patient Risk: Intermediate Procedure Risk: Low Anesthetic Plan Anesthetic Plan: MAC: Disposition: Standard PACU
[2024-11-22 07:07] VITALS: BMI 17.8
[2024-11-22 07:15] VITALS: BP 140/72; PULSE 71; RESP 16; TEMP 37.3; O2SAT 98
[2024-11-22] MEDS: Lactated Ringers 1,000 ML 100 ML IVCONT (07:24)
[2024-11-22 08:30] VITALS: BP 97/50; PULSE 55; RESP 16; TEMP 36.1; O2SAT 100
--- NOTE | 2024-11-22 08:35 | P.BOP_ITS ---
Brief Operative Note Date of Service: 11/22/24 Pre-op diagnosis: Screening Post-op diagnosis: other (Normal exam ) Procedure: Colonoscopy to the cecum via the stoma, and proctoscopy Surgeon: Filiberto Chu MD Anesthesia: MAC Was an Food And Beverage Outlets Manager used for this Procedure?: No Estimated blood loss (mL): 0 Pathology: none sent Condition: stable Disposition: PACU
[2024-11-22 08:45] VITALS: BP 122/49; PULSE 65; RESP 18; TEMP 36.6; O2SAT 100
--- NOTE | 2024-11-22 09:15 | OP_ITS ---
DATE OF SERVICE: 11/22/2024 SURGEON: Filiberto Chu MD INDICATIONS: The patient presents for followup of colorectal cancer screening in regard to a personal history of colon cancer, which was obstructing, as well as a personal history of a large rectal tubulovillous adenoma. Full consent obtained from her for this, including risks of bleeding and perforation. PREOPERATIVE DIAGNOSIS: POSTOPERATIVE DIAGNOSIS: PROCEDURE PERFORMED: Colonoscopy via the stoma to the cecum, and evaluation of rectum and very distal sigmoid colon per anal orifice. ESTIMATED BLOOD LOSS: COMPLICATIONS: ANESTHESIA: Monitored anesthesia care. ASSISTANTS: SPECIMENS: PREOPERATIVE DIAGNOSES: Colorectal cancer screening, personal history of colon cancer, personal history of rectal tubulovillous adenoma. POSTOPERATIVE DIAGNOSES: Colorectal cancer screening, personal history of colon cancer, personal history of rectal tubulovillous adenoma, normal exams. DESCRIPTION OF PROCEDURE: The patient was placed in the supine position. The stomal orifice was pink and healthy. After lubrication, the Olympus video pediatric colonoscope was entered into the stoma and then easily advanced to the cecum. Once in the cecum, I did visualize normal-appearing cecal pouch with appendiceal orifice and a normal-appearing ileocecal valve. There was transillumination of light deep in the right lower quadrant. The scope was then slowly withdrawn assessing all mucosal surfaces carefully. Preparation was excellent. I did not visualize any sign of polyps, colitis, nor angiodysplasias. The scope was then withdrawn from the patient. She was then turned around for evaluation of the rectum and very distal sigmoid colon. The patient was placed in the left lateral decubitus position. The digital rectal exam revealed no abnormalities. The Olympus video pediatric colonoscope was entered into the rectum advanced about 12 to 15 cm. Distal to this, I was able to visualize 2 previously placed submucosal ink bruno, but no sign of any polyp tissue. I did not visualize any sign of polyps, nor any other lesions. However, there was some erythema and some friability in the distal rectum, but no sign of any lesions. The scope was withdrawn from the patient. She tolerated the procedure well and was returned to recovery area in stable condition. IMPRESSION: Normal colonoscopy via stoma to the cecum. Basically, normal rectum and very distal sigmoid colon without any sign of residual recurrent villous adenoma. PLAN: The patient will be on clear liquids the remainder today and then n.p.o. after midnight for her surgery with Dr. Mazzucco tomorrow for reversal of the colostomy. I would recommend a repeat colonoscopy in 1 year for further screening. She will otherwise see me on a p.r.n. basis. This has been discussed with her son. MD ELLY Yin/GONSALO / [id number]
== END 2024-11-22 09:13 | disposition home or self-care (01) ==
PROVIDERS: PCP Internal Medicine; Visit Provider Internal Medicine
PROC: 0DJD8ZZ Inspection of Lower Intestinal Tract, Via Natural or Artificial Opening Endoscopic (ICD-10-PCS; CPT 45378; principal; 2024-11-22 07:30)
DX: Z12.11 Encounter for screening for malignant neoplasm of colon (principal); Z85.038 Personal history of other malignant neoplasm of large intestine; Z86.0101 Personal history of adenomatous and serrated colon polyps; Z92.21 Personal history of antineoplastic chemotherapy; Z93.3 Colostomy status; Z79.899 Other long term (current) drug therapy; Z96.642 Presence of left artificial hip joint
CPT/HCPCS: 44388; 45330; J2704

== ENCOUNTER 2024-11-23 11:04 | Inpatient (IN) | payer MEDICARE, SELFPAY ==
[2024-11-07 10:44] VITALS: BMI 18.4
--- NOTE | 2024-11-22 08:48 | HO.ANESPROP2 ---
Documented by User: Lorie Shirley NP 11/22/24 08:50 HPI - Anesthesia Eval Consult details Narrative: 74yo F for Colostomy Closure s/p colonoscopy 11/22/24 PMF Active Problems Active Problems: All Active Problems Severe malnutrition (Acute) Hypokalemia (Acute) Microcytic anemia (Acute) Abdominal pain (Acute) Past Medical History Medical History Wears dentures History of chemotherapy Hx of flexible sigmoidoscopy (03/17/24) Small bowel obstruction Bowel obstruction Adenocarcinoma of sigmoid colon Family History Family history of problems with anesthesia: No Surgical History Surgical History S/P laparoscopic-assisted sigmoidectomy (03/18/24) History of total left hip arthroplasty History of Problems with Anesthesia: No Social History Social History Household Members: Spouse Housing: Apartment Are you a primary resident care manager rn to a significant other at home: No Do you presently have visiting nurse or other home services: No Patient Tobacco Use Status: Never used Tobacco e-Cigarette/Vaping Use: Never Used Use of substances other than those prescribed or required for medical reasons: No Are you DNR?: No Advance Directives: Yes Advance Directives Information Provided: No Advance Directives on File: Yes Advance Directives Date on File: 10/31/24 Recently lost weight without trying: Yes How much weight loss: 2-13 pounds Eating poorly because of decreased appetite: Yes Nutrition screen score: 4 Nutrition Risks: Surgical patient >75years service: No Current occupational status: retired [employer] Allergies Allergy/AdvReac Type Severity Reaction Status Date / Time No Known Allergies Allergy Verified 11/23/24 07:29 Home Medications ?Medication ?Instructions ?Recorded ?Confirmed ?Last Taken ?Type multivitamin 1 tab PO DAILY 10/31/24 11/22/24 7 Days Ago History ~10/24/24 Exam Height,Weight and Vital Signs: Height 5 ft Weight 42.638 kg Pertinent Lab Results Pertinent Lab Results: Laboratory Tests 10/30/24 18:22 WBC 11.4 H Hgb 10.9 L Hct 32.1 L Plt Count 289 Sodium 134 L Potassium 3.5 D Chloride 100 Carbon Dioxide 26 BUN 19 H Creatinine 0.72 Narrative Narrative: EKG 2023 Vent. Rate : 085 BPM Atrial Rate : 085 BPM P-R Int : 140 ms QRS Dur : 074 ms QT Int : 396 ms P-R-T Axes : 089 033 016 degrees QTc Int : 471 ms Sinus rhythm with occasional Premature ventricular complexes Minimal voltage criteria for LVH, may be normal variant ( Sokolow-Snow ) Cannot rule out Anterior infarct , age undetermined Abnormal ECG No previous ECGs available Assessment and Plan Assessment Anesthesia Assessment: Chart Reviewed Final Anesthetic Review Family History of Problems with Anesthesia: No History of Problems with Anesthesia: No Documented by User: Viktoria Hartley MD 11/23/24 08:00 PMFSH Past Medical History Medical History Wears dentures History of chemotherapy Hx of flexible sigmoidoscopy (03/17/24) Small bowel obstruction Bowel obstruction Adenocarcinoma of sigmoid colon Surgical History Surgical History S/P laparoscopic-assisted sigmoidectomy (03/18/24) History of total left hip arthroplasty Social History Social History Household Members: Spouse Housing: Apartment Are you a primary resident care manager rn to a significant other at home: No Do you presently have visiting nurse or other home services: No Patient Tobacco Use Status: Never used Tobacco e-Cigarette/Vaping Use: Never Used Use of substances other than those prescribed or required for medical reasons: No Are you DNR?: No Advance Directives: Yes Advance Directives Information Provided: No Advance Directives on File: Yes Advance Directives Date on File: 10/31/24 Recently lost weight without trying: Yes How much weight loss: 2-13 pounds Eating poorly because of decreased appetite: Yes Nutrition screen score: 4 Nutrition Risks: Surgical patient >75years service: No Current occupational status: retired Meds Allergies Allergy/AdvReac Type Severity Reaction Status Date / Time No Known Allergies Allergy Verified 11/23/24 07:29 Home Medications ?Medication ?Instructions ?Recorded ?Confirmed ?Last Taken ?Type multivitamin 1 tab PO DAILY 10/31/24 11/22/24 7 Days Ago History ~10/24/24 Exam Airway Mallampati Class: II TM Dist: >3cm Neck ROM: Limited Denture: Upper Loose/Missing/Broken Teeth: Yes, Upper and Lower Heart: RRR Lungs: CTA Assessment and Plan Assessment Anesthesia Assessment: Anesthesia Plan Discussed Final Anesthetic Review NPO: Yes ASA Class: III Final Preanesthetic Review: Meds/Allgs Chart Reviewed, Consent Obtained/Reviewed and Anes Risks/Benef Reviewed Patient Risk: Intermediate Procedure Risk: Intermediate Anesthetic Plan Anesthetic Plan: GA Disposition: Standard PACU
[2024-11-23] VITALS (17 sets, daily range): BP systolic 126–150; BP diastolic 59–76; PULSE 59–75; RESP 14–18; TEMP 36.3–36.8; O2SAT 93–100; BMI 17.6
--- NOTE | 2024-11-23 07:33 | MHC.SHP ---
Pre-Procedural Eval Section A - 24 Hr Update-Section A only Date of Service: 11/23/24 The patient is an INPATIENT: No Changes since office visit: Yes Patient answered all questions; No Cold of Flu in the past 2 weeks, No New Medical Problems and No Changes in Medication The patient has been examined within 24 hours of the surgical procedure. The History & Physical has been completed within 30 days and I have reviewed it.: No Section B - Complete if H&P > 30 days Chief Complaint: Malignant neoplasm of sigmoid colon Details of Present Illness: No change in patients symptoms Relevant Family History (Specify if Yes): No Relevant Social History: None Present Medications: see Short Stay Collaborative assessment Medical History: No relevant PMH History of Previous Operations: Relevant previous surgery/procedure and date(s) (Robles's) Allergies: Allergies Allergy/AdvReac Type Severity Reaction Status Date / Time No Known Allergies Allergy Verified 11/23/24 07:29 Review of Systems Sugical H&P ROS: Negative: Constitution, Cardiovascular, Respiratory, Neurological, Hem-Onc, Allergic/Immunologic, Gastrointestinal, Genitourinary, Musculoskeletal and Integumentary Exam Surgical H&P Exam: Normal: Heart, Normal: Lungs, Normal: Abdomen and Normal: Skin Plan Diagnosis/Plan: Unchanged I have reviewed the history and physical and performed a pertinent physical examination on my patient. No changes have occurred unless specified. Time Spent With Patient Time: Total time managing care of this patient today ____ minutes.
[2024-11-23] MEDS: Lactated Ringers 1,000 ML 100 ML IVCONT (07:34)
--- NOTE | 2024-11-23 11:05 | P.OP_ITS ---
Operative Note Operative Note Date of Service: 11/23/24 Narrative: Preoperative diagnosis: Obstructing sigmoid adenocarcinoma, status post Filippo procedure Postoperative diagnosis: Same Procedure: Hand assisted laparoscopic closure of colostomy Surgeon: Earl Bryant MD Director Housekeeping: Chayito Lugo PA-C Anesthesia: General endotracheal Indications for procedure: 74-year-old female patient with a prior history of an obstructing colon cancer located in the sigmoid colon status post Filippo procedure with sigmoid colectomy and descending colostomy. She returns today for closure of colostomy. Operative findings: No evidence of recurrent carcinoma. Specimen: Colostomy, EEA donuts Estimated blood loss: 20 mL Complications: None Drains: None Procedure details: Patient was brought to the OR and placed in a supine position. After administering general anesthesia a bilateral tap block was applied by anesthesia. The patient was then placed in a lithotomy position. A Smith catheter was inserted. Perineum was prepped with Betadine and abdomen prepped with ChloraPrep. She was draped in a sterile fashion. Surgical time- out was called the consent confirmed. Patient received preoperative antibiotics and Venodyne boots were in place. The colostomy with previously was closed using a running locked 3-0 Prolene suture. An elliptical incision was then made around the colostomy in a transverse fashion and carried out through subcutaneous tissue down around the colostomy wall into the peritoneum. The colostomy was fully mobilized and returned to the abdominal cavity. The colostomy incision was then open slightly further along the fascia and muscle to allow placement of a hand port. A 5 mm trocar was then placed in the epigastrium midline, a 2nd 5 mm trocar was placed in the left upper quadrant and a 12 mm trocar placed in the right upper quadrant. The patient was placed in a Trendelenburg position. Small bowel was moved out of the pelvis and the adhesions to the anterior abdominal wall taken down using a LigaSure. Rectal stump was identified and mobilized using LigaSure. Attention was then directed to the descending colostomy. A pursestring was applied using the pursestring clamp. The bowel was then opened and dilated using EEA sizers. It was easily dilated to a 28. A 28 EEA stapler was then obtained. Rectum was also dilated using the EEA sizers in the rectal stump identified. The stapling device was then inserted through the anus and the spike brought out through the staple line. This was then connected to the descending colon and the stapler fired. Two complete donuts were identified within the stapler. The staple line was then reinforced using interrupted 3-0 Surgilon sutures in a Lembert fashion. A leak test was then performed by instilling air into the rectal vault. No leak could be identified. The patient was returned to a supine position. Fascia was closed in layers using a running 0 Polysorb suture. Dermis was reapproximated using interrupted 3-0 Polysorb sutures. Skin was then closed using a subcuticular 4-0 Polysorb suture. Sterile dressings were then applied. The patient tolerated the procedure well. Sponge, instrument, and needle counts reported as correct. The patient was transferred to PACU in stable condition.
--- NOTE | 2024-11-23 11:57 | PHA.MEDREC ---
Addendum entered by Sanjana Sun RPh 11/23/24 11:58: reviewed by [facility]. Original Note: Pharmacy Consult ? Medication Reconciliation Pharmacy has reviewed the medication reconciliation done by nursing.
[2024-11-23] MEDS: fentaNYL citrate/PF 100 MCG/2 ML VIAL 25 MCG IVPUSH (12:35)
[2024-11-23] MEDS: Acetaminophen 1,000 MG/100 ML PIGGYBACK 400 MG IV ×2 (14:16→21:41)
[2024-11-23 14:38] LABS: Creatinine Clr Calc Pharmacy 43.4; Estimated Glomerular Filt Rate > 60
[2024-11-23] MEDS: Dextrose 5 % and Lactated Ring 1,000 ML 100 ML IVCONT ×2 (14:54→23:43)
[2024-11-24 03:06] VITALS: BP 117/58; PULSE 69; RESP 18; TEMP 36; O2SAT 98
[2024-11-24] MEDS: Acetaminophen 1,000 MG/100 ML PIGGYBACK 400 MG IV ×2 (05:55→14:29)
[2024-11-24 06:57] LABS: MANUAL DIFF FLAG NO
[2024-11-24 07:01] LABS: Basophils Percent Auto 0.2 % (0-2); Eosinophils Percent Auto 0.2 % (0-4); Hematocrit 32.1 % (37.0-47.0); Hemoglobin 10.4 g/dl (12.0-16.0); Imm Gran Abs Auto 0.02 X10*3/uL (0.00-0.03); Imm Gran Pct Auto 0.2 % (0.0-0.4); Lymphocytes Absolute Auto 0.8 X10*3/uL (1.2-4.9); Lymphocytes Percent Auto 9.4 % (20-40); Mean Corpuscular HGB Conc 32.4 g/dl (31.0-35.0); Mean Corpuscular Hemoglobin 30.3 pg (27.0-33.0); Mean Corpuscular Volume 93.6 fL (80.0-98.0); Mean Platelet Volume 9.8 fL (9.4-12.3); Monocytes Percent Auto 12.7 % (2-11); Neutrophils Absolute Auto 6.3 x10*3/uL (2.0-8.3); Neutrophils Percent Auto 77.3 % (45-73); Platelet Count 261 X10*3/uL (160-400); Red Blood Count 3.43 X10*6/uL (4.20-5.50); Red Cell Distribution Width 16.6 % (11.0-16.0); White Blood Count 8.2 X10*3/uL (4.8-10.8)
[2024-11-24 07:21] LABS: Alanine Aminotransferase 7 U/L (0-31); Albumin Level 3.1 g/dL (3.5-5.0); Alkaline Phosphatase 68 U/L (39-117); Anion Gap 10 (12-20); Aspartate Amino Transferase 22 U/L (5-31); Bilirubin Total 0.6 mg/dL (0.0-1.0); Blood Urea Nitrogen 4 mg/dL (9-16); Calcium 8.3 mg/dL (8.4-10.2); Carbon Dioxide 27 mmol/L (22-29); Chloride 108 mmol/L (96-108); Creatinine Clr Calc Pharmacy 51.3; Estimated Glomerular Filt Rate > 60; Glucose Random 93 mg/dL (60-115); Potassium 3.6 mmol/L (3.3-5.1); Sodium 141 mmol/L (135-145); Total Protein 5.6 g/dL (6.5-8.0)
[2024-11-24 08:13] VITALS: BP 123/59; PULSE 65; RESP 12; TEMP 36.8; O2SAT 99
--- NOTE | 2024-11-24 08:31 | HO.POSTANES ---
Post Anesthesia Evaluation Post Anesthesia Evaluation Date of Service: 11/24/24 Vital Signs: Vital Signs Temp Pulse Resp BP Pulse Ox O2 Del Method 11/24/24 08:13 98.3 F 65 12 123/59 L 99 Room Air 11/24/24 03:06 96.8 F 69 18 117/58 L 98 Room Air Anesthesia: General Endotracheal-GETA Mental Status: Awake Pain Control: Satisfactory Nausea/Vomiting: None Hydration: Adequate Anesthesia-Related Issues: No Anes. Related Issues
--- NOTE | 2024-11-24 09:13 | PM.PNGS ---
Subjective Subjective Date of Service: 11/24/24 <Chayito Lugo PA-C - Last Filed: 11/24/24 09:18> 11/24/24 <Earl Bryant MD - Last Filed: 11/24/24 10:34> Interval history: Patient reports mild incisional pain, comfortable with analgesics. Tolerating liquids, feels hungry. No flatus or BM. <Chayito Lugo PA-C - Last Filed: 11/24/24 09:18> Physical Exam Vital Signs: Vital Signs: Last Vital Signs Temp 98.3 F 11/24/24 08:13 Pulse 65 11/24/24 08:13 Resp 12 11/24/24 08:13 BP 123/59 L 11/24/24 08:13 Pulse Ox 99 11/24/24 08:13 O2 Del Method Room Air 11/24/24 08:13 O2 Flow Rate 4 11/23/24 11:27 BMI result Body Mass Index 17.6 <Chayito Lugo PA-C - Last Filed: 11/24/24 09:18> Const: General: comfortable, no acute distress and alert <Chayiot Lugo PA-C - Last Filed: 11/24/24 09:18> Orientation/consciousness: patient oriented x3 <MARLIN Cabrera Last Filed: 11/24/24 09:18> Resp: Effort & Inspection: normal respiratory effort <Chayito Lugo PA-C - Last Filed: 11/24/24 09:18> GI: Inspection: Yes distended and Yes incision (dressings intact, clean ) <Chayito Lugo PA-C - Last Filed: 11/24/24 09:18> Palpation (GI): Soft to palpation, Tenderness to palpation present (GI) (mild incisional) and no guarding <MARLIN Cabrera Last Filed: 11/24/24 09:18> Skin: General skin exam: no rashes or lesions noted <MARLIN Cabrera Last Filed: 11/24/24 09:18> Neuro: General: patient oriented x3 and moves all extremities <MARLIN Cabrera Last Filed: 11/24/24 09:18> Objective Data Active Medications Calcium Carbonate (Calcium Carbonate 750 Mg Tab.Chew) 750 mg PO Q4H PRN PRN Reason: Heartburn Enoxaparin Sodium (Enoxaparin Sodium 40 Mg/0.4 Ml Syringe) 40 mg SUBCUT Q24H [facility] Hydromorphone HCl (Hydromorphone Hcl 0.5 Mg/0.5 Ml Syringe) 0.25 mg IVPUSH Q3H PRN; Protocol PRN Reason: Pain, Severe (Pain Scale 7-10) Acetaminophen (Ofirmev) 1,000 mg in 100 mls @ 400 mls/hr IV Q8H [facility] Stop: 11/24/24 14:05 Last Infusion: 11/24/24 06:11 Dose: Infused Documented By: JOSIANE Dextrose/Lactated Ringer's (D5lr) 1,000 mls @ 100 mls/hr IVCONT .Q10H [facility] Last Admin: 11/23/24 23:43 Dose: 100 mls/hr Documented By: JOSIANE Magnesium Hydroxide (Milk Of Magnesia 30 Ml Oral.Susp) 30 ml PO DAILY PRN PRN Reason: Constipation Ondansetron HCl (Ondansetron Hcl 4 Mg/2 Ml Vial) 4 mg IVPUSH QID PRN PRN Reason: Nausea Oxycodone HCl (Oxycodone Hcl Immed Release 5 Mg Tablet) 5 mg PO Q6H PRN PRN Reason: Pain, Moderate(Pain Scale 4-6) Sodium Chloride (0.9 % Sodium Chloride Flush 3 Ml Syringe) 3 ml IVFLUSH QSHIFT [facility] Last Admin: 11/24/24 07:35 Dose: Not Given Documented By: OLIMPIA Non-Admin Reason: IV Running Zolpidem Tartrate (Zolpidem Tartrate 5 Mg Tablet) 5 mg PO BEDTIME PRN PRN Reason: Insomnia <Chayito Lugo PA-C - Last Filed: 11/24/24 09:18> Labs CBC & Chem 7: 11/24/24 05:57 11/24/24 05:57 <Chayito Lugo PA-C - Last Filed: 11/24/24 09:18> Labs: Laboratory Results - last 24 hr 11/23/24 11/24/24 14:15 05:57 MCV 93.6 MCH 30.3 MCHC 32.4 RDW 16.6 H Plt Count 261 MPV 9.8 Immature Gran % (Auto) 0.2 Neut % (Auto) 77.3 H Lymph % (Auto) 9.4 L [place] % (Auto) 12.7 H Eos % (Auto) 0.2 Baso % (Auto) 0.2 Lymph # (Auto) 0.8 L [place] # (Auto) 1.0 Eos # (Auto) 0.0 Baso # (Auto) 0.0 Abs Immat Gran (auto) 0.02 Absolute Neuts (auto) 6.3 Absolute Nucleated RBC 0.000 Nucleated RBC % (auto) 0.0 Anion Gap 10 L Estim Creat Clear Calc 43.4 51.3 Estimated GFR > 60 > 60 Random Glucose 93 Calcium 8.3 L Total Bilirubin 0.6 AST 22 ALT 7 Alkaline Phosphatase 68 Total Protein 5.6 L Albumin 3.1 L <Chayito Lugo PA-C - Last Filed: 11/24/24 09:18> Procedures Date of Service Date of Service: 11/24/24 <Chayito Lugo PA-C - Last Filed: 11/24/24 09:18> 11/24/24 <Earl Bryant MD - Last Filed: 11/24/24 10:34> Progress Note: A&P Assessment and plan (1) History of colostomy reversal: Status: Acute <Chayito Lugo PA-C - Last Filed: 11/24/24 09:18> Assessment and Plan: POd #1 s/p Hand assisted laparoscopic closure of colostomy. Doing fairly well post op. Pain well controlled, tolerating liquids, no evidence of GI function. Abd overall benign with appropriate post op tenderness, dressings clean and intact, softly distended. Will cont clear liquids for now. Increase activity. Dc baca. Decrease IVF. Await return of GI function. <MARLIN Cabrera Last Filed: 11/24/24 09:18> Time Spent With Patient Time: Total time managing care of this patient today ____ minutes. <MARLIN Cabrera Last Filed: 11/24/24 09:18> Quality Stroke Does the patient have a stroke diagnosis?: No <Chayito Lugo PA-C - Last Filed: 11/24/24 09:18> VTE Prior VTE?: No <Chayito Lugo PA-C - Last Filed: 11/24/24 09:18> VTE Risk Level:: Surgical - moderate <Chayito Lugo PA-C - Last Filed: 11/24/24 09:18> VTE Device Contraindication: N/A - Device Ordered <Chayito Lugo PA-C - Last Filed: 11/24/24 09:18> VTE Drug Contraindication: N/A - Med Ordered <Chayito Lugo PA-C - Last Filed: 11/24/24 09:18>
[2024-11-24] MEDS: Dextrose 5 % and Lactated Ring 1,000 ML 100 ML IVCONT (09:32)
--- NOTE | 2024-11-24 10:06 | PC.NURSE ---
baca catheter removed at 0930, catheter intact at time of removal, patient due to void by 1530
[2024-11-24 11:24] VITALS: BMI 17.6
--- NOTE | 2024-11-24 11:29 | MHC.CLN ---
RE; CONSULT PT IS SEVERELY MALNOURISHED PT WITH SEVERELY DEPLETED SUBCUTANEOUS FAT AND MUSCLE MASS WITH 11% SIGNIFICANT WT LOSS X 6 MONTHS; PREVIOUSLY DX WITH [facility]PCM ON 10/31/24 (SEE ASSESSMENT) DIET RX=CLEAR LIQUIDS DAUGHTER PREVIOUSLY REPORTS THAT PATIENT HAS CONCERNS WITH DIGESTING LACTOSE SINCE CHEMO. ALSO, DAUGHTER CONCERNED WITH CHEMICALS IN ENSURE. AGREES TO ENSURE CLEAR WILL ADD ENSURE CLEAR TID TO PROVIDE 720 KCALS, 24 G PROTEIN MONITOR PO INTAKE ADN ENCOURAGE SUPPLEMENTS SEE ALSO FULL CLINICAL NUTRITION ASSESSMENT
[2024-11-24] MEDS: Enoxaparin Sodium 40 MG/0.4 ML SYRINGE SUBCUT (12:06)
--- NOTE | 2024-11-24 16:09 | MHC.CM.PN ---
Patient lives in an apartment w/ . Functionally independent. Denies use of DME or services. Has used [facility] in the past for SN. PCP Dr Nobles Reports she has an HCP naming her daughter as [facility]. Copy requested. DP: Goal is home, ? need for SN services, to transport. CM will continue to follow.
[2024-11-24 16:41] VITALS: BP 138/63; PULSE 74; RESP 12; TEMP 36.7; O2SAT 98
[2024-11-24 19:26] VITALS: BP 148/70; PULSE 67; RESP 18; TEMP 37.3; O2SAT 99
[2024-11-24] MEDS: Dextrose 5 % and Lactated Ring 1,000 ML 50 ML IVCONT (20:00)
[2024-11-25 03:09] VITALS: BP 140/66; PULSE 62; RESP 18; TEMP 36.2; O2SAT 99
--- NOTE | 2024-11-25 07:05 | PM.PNGS ---
Subjective Subjective Date of Service: 11/25/24 <Kirsty Valero - Last Filed: 11/25/24 07:22> 11/29/24 <Chayito Lugo PA-C - Last Filed: 11/29/24 10:15> 11/29/24 <Earl Bryant MD - Last Filed: 11/29/24 11:52> Interval history: Pt is POD#2 from hand-assisted colostomy closure. Pt is in no acute distress. Pt reports minimal pain at incision sites but is comfortable with analgesics. Pt denies any bowel movements but has had some flatus. Pt is tolerating liquids but has not had any solid foods. Pt denies any nausea or vomiting. Pt denies any chills or fever. Pt reports pain when sitting upright and upon moving to the chair. <Kirsty Valero - Last Filed: 11/25/24 07:22> Physical Exam Vital Signs: Vital Signs: Last Vital Signs Temp 97.1 F 11/25/24 03:09 Pulse 62 11/25/24 03:09 Resp 18 11/25/24 03:09 BP 140/66 H 11/25/24 03:09 Pulse Ox 99 11/25/24 03:09 O2 Del Method Room Air 11/25/24 03:09 O2 Flow Rate 4 11/23/24 11:27 BMI result Body Mass Index 17.6 <Kirsty Valero - Last Filed: 11/25/24 07:22> Const: General: no acute distress and alert <Kirsty Valero - Last Filed: 11/25/24 07:22> Orientation/consciousness: patient oriented x3 <Kirsty Valero - Last Filed: 11/25/24 07:22> Resp: Effort & Inspection: normal respiratory effort <Kirsty Valero - Last Filed: 11/25/24 07:22> Auscultation: clear to auscultation bilaterally <Kirsty Valero - Last Filed: 11/25/24 07:22> GI: Inspection: Yes distended <Kirsty Valero - Last Filed: 11/25/24 07:22> Palpation (GI): Soft to palpation and Other GI palpation findings present (Pain to palpation in left lower quadrant) <Kirsty Valero - Last Filed: 11/25/24 07:22> Auscultation: normal bowel sounds <Kirsty Valero - Last Filed: 11/25/24 07:22> Neuro: General: patient oriented x3 <Kirsty Valero - Last Filed: 11/25/24 07:22> Objective Data Active Medications Calcium Carbonate (Calcium Carbonate 750 Mg Tab.Chew) 750 mg PO Q4H PRN PRN Reason: Heartburn Enoxaparin Sodium (Enoxaparin Sodium 40 Mg/0.4 Ml Syringe) 40 mg SUBCUT Q24H [facility] Last Admin: 11/24/24 12:06 Dose: 40 mg Documented By: OLIMPIA Hydromorphone HCl (Hydromorphone Hcl 0.5 Mg/0.5 Ml Syringe) 0.25 mg IVPUSH Q3H PRN; Protocol PRN Reason: Pain, Severe (Pain Scale 7-10) Dextrose/Lactated Ringer's (D5lr) 1,000 mls @ 50 mls/hr IVCONT .Q20H [facility] Last Admin: 11/24/24 20:00 Dose: 50 mls/hr Documented By: JOSIANE Magnesium Hydroxide (Milk Of Magnesia 30 Ml Oral.Susp) 30 ml PO DAILY PRN PRN Reason: Constipation Ondansetron HCl (Ondansetron Hcl 4 Mg/2 Ml Vial) 4 mg IVPUSH QID PRN PRN Reason: Nausea Oxycodone HCl (Oxycodone Hcl Immed Release 5 Mg Tablet) 5 mg PO Q6H PRN PRN Reason: Pain, Moderate(Pain Scale 4-6) Sodium Chloride (0.9 % Sodium Chloride Flush 3 Ml Syringe) 3 ml IVFLUSH QSHIFT [facility] Last Admin: 11/25/24 00:08 Dose: Not Given Documented By: JOSIANE Non-Admin Reason: IV Running Zolpidem Tartrate (Zolpidem Tartrate 5 Mg Tablet) 5 mg PO BEDTIME PRN PRN Reason: Insomnia <Kirsty Valero - Last Filed: 11/25/24 07:22> Labs CBC & Chem 7: 11/24/24 05:57 11/24/24 05:57 <Kirsty Valero - Last Filed: 11/25/24 07:22> Labs: Laboratory Results - last 24 hr 11/24/24 05:57 Anion Gap 10 L Estim Creat Clear Calc 51.3 Estimated GFR > 60 Random Glucose 93 Calcium 8.3 L Total Bilirubin 0.6 AST 22 ALT 7 Alkaline Phosphatase 68 Total Protein 5.6 L Albumin 3.1 L <Kirsty Valero - Last Filed: 11/25/24 07:22> Procedures Date of Service Date of Service: 11/25/24 <Kirsty Valero - Last Filed: 11/25/24 07:22> 11/29/24 <Chayito Lugo PA-C - Last Filed: 11/29/24 10:15> 11/29/24 <Earl Bryant MD - Last Filed: 11/29/24 11:52> Progress Note: A&P Assessment and plan (1) History of colostomy reversal: Status: Acute <Kirsty Valero - Last Filed: 11/25/24 07:22> Assessment and Plan: Pt is POD#2 from a hand assisted colostomy closure. No swelling or edema in lower extremities. As noted above, abdomen is soft and distended but less distention than yesterday. Pt encouraged to use incentive spirometer x10/hr. Pt will be continued on liquids until she has a bowel movement. <Kirsty Valero - Last Filed: 11/25/24 07:22> Time Spent With Patient Time: Total time managing care of this patient today ____ minutes. <Kirsty Valero - Last Filed: 11/25/24 07:22> Quality Stroke Does the patient have a stroke diagnosis?: No <Kirsty Valero - Last Filed: 11/25/24 07:22> VTE Prior VTE?: No <Kirsty Valero - Last Filed: 11/25/24 07:22> VTE Risk Level:: Surgical - moderate <Kirsty Valero - Last Filed: 11/25/24 07:22> VTE Device Contraindication: N/A - Device Ordered <Kirsty Valero - Last Filed: 11/25/24 07:22> VTE Drug Contraindication: N/A - Med Ordered <Kirsty Valero - Last Filed: 11/25/24 07:22>
[2024-11-25 07:53] VITALS: BP 157/73; PULSE 63; RESP 17; TEMP 37.1; O2SAT 99
--- NOTE | 2024-11-25 08:23 | PM.PNGS ---
Subjective Subjective Date of Service: 11/25/24 Interval history: Pod 2 following hand assisted closure of colostomy. Patient has incisional pain especially when sitting. She is passing flatus but no BM yet. She tolerated the clear liquids without nausea or vomiting. Physical Exam Vital Signs: Vital Signs: Last Vital Signs Temp 98.8 F 11/25/24 07:53 Pulse 63 11/25/24 07:53 Resp 17 11/25/24 07:53 BP 157/73 H 11/25/24 07:53 Pulse Ox 99 11/25/24 07:53 O2 Del Method Room Air 11/25/24 07:53 O2 Flow Rate 4 11/23/24 11:27 BMI result Body Mass Index 17.6 Const: General: no acute distress and alert Orientation/consciousness: patient oriented x3 Resp: Effort & Inspection: normal respiratory effort Auscultation: clear to auscultation bilaterally GI: Other: Dressings removed and incisions found to be clean and intact without redness or discharge Inspection: Yes distended Palpation (GI): Soft to palpation and Other GI palpation findings present (Pain to palpation in left lower quadrant) Auscultation: normal bowel sounds Neuro: General: patient oriented x3 Extrem: General: No edema Objective Data Active Medications Calcium Carbonate (Calcium Carbonate 750 Mg Tab.Chew) 750 mg PO Q4H PRN PRN Reason: Heartburn Enoxaparin Sodium (Enoxaparin Sodium 40 Mg/0.4 Ml Syringe) 40 mg SUBCUT Q24H [facility] Last Admin: 11/24/24 12:06 Dose: 40 mg Documented By: OLIMPIA Hydromorphone HCl (Hydromorphone Hcl 0.5 Mg/0.5 Ml Syringe) 0.25 mg IVPUSH Q3H PRN; Protocol PRN Reason: Pain, Severe (Pain Scale 7-10) Dextrose/Lactated Ringer's (D5lr) 1,000 mls @ 50 mls/hr IVCONT .Q20H [facility] Last Admin: 11/24/24 20:00 Dose: 50 mls/hr Documented By: JOSIANE Magnesium Hydroxide (Milk Of Magnesia 30 Ml Oral.Susp) 30 ml PO DAILY PRN PRN Reason: Constipation Ondansetron HCl (Ondansetron Hcl 4 Mg/2 Ml Vial) 4 mg IVPUSH QID PRN PRN Reason: Nausea Oxycodone HCl (Oxycodone Hcl Immed Release 5 Mg Tablet) 5 mg PO Q6H PRN PRN Reason: Pain, Moderate(Pain Scale 4-6) Sodium Chloride (0.9 % Sodium Chloride Flush 3 Ml Syringe) 3 ml IVFLUSH QSHIFT [facility] Last Admin: 11/25/24 07:24 Dose: Not Given Documented By: OLIMPIA Non-Admin Reason: IV Running Zolpidem Tartrate (Zolpidem Tartrate 5 Mg Tablet) 5 mg PO BEDTIME PRN PRN Reason: Insomnia Labs 11/24/24 05:57 11/24/24 05:57 Procedures Date of Service Date of Service: 11/25/24 Progress Note: A&P Assessment and plan (1) History of colostomy reversal: Status: Acute Plan Pod 2 following hand assisted closure of colostomy. Patient is doing well, awaiting return of bowel function. Encouraged out of bed and ambulation, incentive spirometry. We will advance to regular low-fiber diet. Discharge to home once tolerating regular diet and having bowel movements. Time Spent With Patient Time: Total time managing care of this patient today ____ minutes. Quality Stroke Does the patient have a stroke diagnosis?: No VTE Prior VTE?: No VTE Risk Level:: Surgical - moderate VTE Device Contraindication: N/A - Device Ordered VTE Drug Contraindication: N/A - Med Ordered
--- NOTE | 2024-11-25 10:40 | MHC.CM.PN ---
Patient not medically cleared for dc. Advancing diet. CM will continue to follow.
[2024-11-25] MEDS: Enoxaparin Sodium 40 MG/0.4 ML SYRINGE SUBCUT (10:51)
--- NOTE | 2024-11-25 12:05 | MHC.CLN ---
F/U DIET ADVANCED TODAY TO REGULAR, LOW FIBER. ENSURE CLEAR TO PROVIDE 720 KCALS, 24 G PROTEIN. PER PRIOR ADM HX, OK FOR ENSURE CLEAR BUT NOT OTHER ENSURE PRODUCTS. MONITOR PO INTAKE AND ENCOURAGE SUPPLEMENTS.
[2024-11-25] MEDS: Dextrose 5 % and Lactated Ring 1,000 ML 50 ML IVCONT (14:21)
[2024-11-25 15:37] VITALS: PULSE 978
[2024-11-25 15:38] VITALS: BP 158/75; PULSE 76; RESP 18; TEMP 36.6; O2SAT 99
[2024-11-25 20:00] VITALS: BP 165/78; PULSE 88; RESP 18; TEMP 36.8; O2SAT 100
[2024-11-26 03:57] VITALS: BP 127/72; PULSE 71; RESP 18; TEMP 37; O2SAT 99
[2024-11-26 08:08] VITALS: BP 155/69; PULSE 75; RESP 18; TEMP 36.1; O2SAT 99
--- NOTE | 2024-11-26 09:16 | PM.PNGS ---
Subjective Subjective Date of Service: 11/26/24 Interval history: Feels well Tolerating diet Has had BMs and flatus Denies significant pain Physical Exam Vital Signs: Vital Signs: Last Vital Signs Temp 97.0 F 11/26/24 08:08 Pulse 75 11/26/24 08:08 Resp 18 11/26/24 08:08 BP 155/69 H 11/26/24 08:08 Pulse Ox 99 11/26/24 08:08 O2 Del Method Room Air 11/26/24 08:08 O2 Flow Rate 4 11/23/24 11:27 BMI result Body Mass Index 17.6 Const: General: comfortable and no acute distress Resp: Effort & Inspection: normal respiratory effort Cardio: Rate: regular rate GI: Other: Incisions clean and dry Palpation (GI): Soft to palpation, not firm and no guarding Objective Data Active Medications Calcium Carbonate (Calcium Carbonate 750 Mg Tab.Chew) 750 mg PO Q4H PRN PRN Reason: Heartburn Enoxaparin Sodium (Enoxaparin Sodium 40 Mg/0.4 Ml Syringe) 40 mg SUBCUT Q24H [facility] Last Admin: 11/25/24 10:51 Dose: 40 mg Documented By: OLIMPIA Hydromorphone HCl (Hydromorphone Hcl 0.5 Mg/0.5 Ml Syringe) 0.25 mg IVPUSH Q3H PRN; Protocol PRN Reason: Pain, Severe (Pain Scale 7-10) Dextrose/Lactated Ringer's (D5lr) 1,000 mls @ 50 mls/hr IVCONT .Q20H [facility] Last Admin: 11/25/24 14:21 Dose: 50 mls/hr Documented By: OLIMPIA Magnesium Hydroxide (Milk Of Magnesia 30 Ml Oral.Susp) 30 ml PO DAILY PRN PRN Reason: Constipation Ondansetron HCl (Ondansetron Hcl 4 Mg/2 Ml Vial) 4 mg IVPUSH QID PRN PRN Reason: Nausea Oxycodone HCl (Oxycodone Hcl Immed Release 5 Mg Tablet) 5 mg PO Q6H PRN PRN Reason: Pain, Moderate(Pain Scale 4-6) Sodium Chloride (0.9 % Sodium Chloride Flush 3 Ml Syringe) 3 ml IVFLUSH QSHIFT [facility] Last Admin: 11/25/24 21:06 Dose: Not Given Documented By: IRASEMA Non-Admin Reason: IV Running Zolpidem Tartrate (Zolpidem Tartrate 5 Mg Tablet) 5 mg PO BEDTIME PRN PRN Reason: Insomnia Labs 11/24/24 05:57 11/24/24 05:57 Procedures Date of Service Date of Service: 11/26/24 Progress Note: A&P Assessment and plan (1) History of colostomy reversal: Status: Acute Assessment and Plan: Continues to do well postop Tolerating diet, good GI functions Abdomen is soft and benign No events reported She feels ready to be discharged Okay to DC home today Instructions reinforced with patient Time Spent With Patient Time: Total time managing care of this patient today ____ minutes. Quality Stroke Does the patient have a stroke diagnosis?: No VTE Prior VTE?: No VTE Risk Level:: Surgical - moderate VTE Device Contraindication: N/A - Device Ordered VTE Drug Contraindication: N/A - Med Ordered
--- NOTE | 2024-11-26 09:37 | MHC.CM.PN ---
pt dcd home self care
--- NOTE | 2024-11-26 12:14 | P.DS_ITS ---
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 She returns today for closure of colostomy. HOSPITAL COURSE: On 11/23/24, a hand assisted laparoscopic colostomy closure was performed by Dr. Bryant without complication. The patient tolerated the procedure well and was admitted post operatively for observation. She had an uncomplicated recovery course. Her baca was removed on POD #1. She was ambulated and her activity increased. Her diet was advanced slowly as tolerated. She began to pass flatus and move her bowels. On the day of discharge, she was tolerating a solid diet without nausea or vomiting. Her incisional pain was controlled with PO analgesics. She had good GI function. Her abdomen was benign with appropriate post op tenderness and clean incisions. She was hemodynamically stable. She was discharged to home on 11/26/24. She is to follow up in the office in 1 week. Status at Discharge Functional status at discharge: independent ambulation Overall status at discharge: patient is progressing back to baseline Time Attestation Discharge Coordination Time (in mins): 40 Quality: Safe Use of Opioids Does Pt have an Active Cancer Diagnosis on the Problem List?: Yes Opioid Measure Date for CMS Report: 10/30/24 Opioid Measure Time for CMS Report: 10:15 Quality: Stroke Does the patient have a stroke diagnosis?: No Physical Exam Vital Signs: Vital Signs: Last Vital Signs Temp 97.0 F 11/26/24 08:08 Pulse 75 11/26/24 08:08 Resp 18 11/26/24 08:08 BP 155/69 H 11/26/24 08:08 Pulse Ox 99 11/26/24 08:08 O2 Del Method Room Air 11/26/24 08:08 O2 Flow Rate 4 11/23/24 11:27 BMI result Body Mass Index 17.6 Const: General: comfortable, no acute distress and alert Orientation/consciousness: patient oriented x3 Resp: Effort & Inspection: normal respiratory effort GI: Inspection: No distended and Yes incision (clean) Palpation (GI): Soft to palpation, Tenderness to palpation present (GI) (mild incisional) and no guarding Skin: General skin exam: no rashes or lesions noted Neuro: General: patient oriented x3 DS: Data Data Completed and Pending Completed studies during hospitalization [Text1]: Pending at discharge 11/23/24 10:58 Surgical [PTH] Routine A. Ostomy (reversal): Intact mucocutaneous anastomosis with fibrosis, mild inflammation, and epithelium with mild hyperplastic changes; no evidence of malignancy. B. Anastomotic rings (revision): Two annular portions of colonic mucosa and wall, one with features of diversion colitis, consistent with anastomotic rings; no evidence of malignancy. Procedures Bypass Sigmoid Colon to Cutaneous, Open Approach (03/16/24) Excision of Rectum, Via Natural or Artificial Opening Endoscopic, Diagnostic (03/16/24) Excision of Sigmoid Colon, Open Approach (03/16/24) Excision of Sigmoid Colon, Via Natural or Artificial Opening Endoscopic, Diagnostic (03/16/24) Excision of Small Intestine, Open Approach (03/16/24) Discharge Plan Discharge Anticipated Discharge Date/Time: 11/26/24 09:18 Patient Disposition: Home, Self-Care Discharge Diagnosis: reversal of colostomy Referrals: Earl Bryant MD [Physician] - 1 Week Shyann Nobles MD [Primary Care Provider] - 1 Week Discharge Medications: New oxycodone 5 mg tablet 5 mg PO Q4H PRN (Reason: pain) Qty: 20 0RF Rx Instructions: Partial Fill upon patient request. Continued multivitamin Tablet 1 tab PO DAILY Discharge Orders: Discharge Order (Routine); Ordered 11/26/24 Ordered By: Ranjit Han Diet: Advance to usual diet Activity on Discharge: No heavy lifting Stand Alone Forms: Patient Portal Discharge page Print Language: [place] Activity Restrictions/Additional Instructions: If the incision area is tender, you may apply an ice pack for short intervals (No more than 20 minutes on, followed by at least 20 minutes off). Do not apply heat. Do not use creams, lotions, or topical antibiotics unless instructed to do so by your surgeon. These can cause infection or allergic reaction. No lifting more than 20 lbs No strenuous activities Call the office for follow-up in 2 weeks - with Dr. Han Call Your Doctor If: -Your temperature exceeds 101.5? F -You experience excessive pain or swelling -You have an unexpected reaction to medication -You have excessive bleeding -You experience continued vomiting/nausea -Your incision begins to separate -Your incision shows signs of infection such as increased redness, sw elling, excessive pain, drainage (light blood or clear fluid is normal) or heat Care Plan Goals: Returned to baseline Health Concerns: Recent reversal of colostomy, pain control Plan of Treatment: Oral pain meds Follow up in the office Assessment: Doing very well Discharge Date/Time: 11/26/24 12:50
== END 2024-11-26 12:50 | disposition home or self-care (01) | DRG 346 ==
LOC: HO.SSSA 11:08 → HO.S3 12:56
PROVIDERS: Admitting Provider Surgery; PCP Internal Medicine; Visit Provider Surgery
PROC: 0DSM0ZZ Reposition Descending Colon, Open Approach (ICD-10-PCS; CPT 44620; principal; 2024-11-23 08:30)
DX: Z43.3 Encounter for attention to colostomy (principal); G89.18 Other acute postprocedural pain; Z85.038 Personal history of other malignant neoplasm of large intestine
CPT/HCPCS: 36415; 80053; 82565; 85025; 88304; 88305; J0131; J1650; J2003; J2371; J2405; J2598; J2704; J2795; J3010

== ENCOUNTER → 2024-11-23 11:04 | Outpatient (BNV) | payer MEDICARE, SELFPAY | PROVIDERS: Admitting Provider Surgery; PCP Internal Medicine; Visit Provider Surgery | DX: Z98.890 Other specified postprocedural states (principal) | CPT/HCPCS: 44227; 99024 ==

== ENCOUNTER 2024-12-06 10:29 | Outpatient (AMB) | payer MEDICARE, SELFPAY ==
--- NOTE | 2024-12-06 10:32 | MHC.OFFVIS ---
Vital Signs 12/06/24 10:39 Height 5 ft Weight 93 lb 2 oz BMI 18.2 BP 172/79 H Blood Pressure Location Lt brachial Position Sitting Pulse 78 Intake Visit Reasons: S/P Colostomy reversal Intake Note: Patient is seen in office for follow up visit, post colostomy reversal. Pt c/o: eating well, no longer has blood in stool, some minimal discomfort in the incision when getting up to fast, denies any other concerns Family Welfare Social Work Professor Required: No Accompanied by: Family/Other Allergies No Known Allergies Allergy (Verified 12/06/24 10:38) HPI Comments Details: Patient returns 1 week following closure of colostomy with a hand assisted laparoscopic technique. She tolerated the procedure well and reports eating well. She denies any abdominal pain at this time. Her bowels are regular without bleeding. She denies nausea or vomiting. [facility] Medical History Wears dentures History of chemotherapy Hx of flexible sigmoidoscopy (03/17/24) Small bowel obstruction Bowel obstruction Adenocarcinoma of sigmoid colon Surgical History S/P laparoscopic-assisted sigmoidectomy (03/18/24) History of total left hip arthroplasty Social History Household Members: Spouse Housing: Apartment Are you a primary day care provider to a significant other at home: No Do you presently have visiting nurse or other home services: No 75 years or older and lives alone: No Patient Tobacco Use Status: Never used Tobacco e-Cigarette/Vaping Use: Never Used Advance Directives Date on File: 10/21/24 service: No Current occupational status: retired Physical Exam Vital Signs: Last Vital Signs Pulse 78 12/06/24 10:39 BP 172/79 H 12/06/24 10:39 BMI result Body Mass Index 18.2 Const General: comfortable Nutritional Appearance: well nourished Orientation/consciousness: patient oriented x3 Resp Effort & Inspection: normal respiratory effort, no audible wheezes and no cough GI Other: Soft, nondistended, well-healed trocar incisions with intact Steri-Strips. Abdomen image: 1. 2. 3. Neuro General: patient oriented x3 Extrem General: Yes no clubbing, cyanosis or edema Assessment & Plan Assessment & Plan (1) History of colostomy reversal: Code(s): Z98.890 - Other specified postprocedural states Category: Surgical (2) Adenocarcinoma of sigmoid colon: Code(s): C18.7 - Malignant neoplasm of sigmoid colon Category: Medical Plan 74-year-old female status post closure of colostomy 1 week ago. Her wounds are healing nicely in her bowel function has returned to normal. She should continue to avoid lifting greater than 10 lb and return in approximately 1 month for follow-up examination. She is welcome to call sooner for any new concerns. Coding Level of Care Code Global (82597) Diagnoses History of colostomy reversal Z98.890 Adenocarcinoma of sigmoid colon C18.7
[2024-12-06 10:39] VITALS: BP 172/79; PULSE 78; BMI 18.2
--- OUTSIDE RECORDS SUMMARY | 2024-12-06 11:48 | XMS_ITS | Clinical Summary ---
Author Organization [facility] Address [address] [place] [address] Care Team Providers Care Pole Framer Name Role Phone Heavenly Kaur MD Primary Care Provider Unavailabl e Allergies No known active allergies Medications Medication Sig Dispensed Refills Start Date End Date Status Glucosamine HCl (GLUCOSAMINE PO) Take by mouth. 0 Acti ve Protein POWD Take by mouth. 0 Active Cholecalciferol (VITAMIN D PO) Take by mouth. 0 Active ibuprofen (ADVIL,MOTRIN) 200 MG tablet Take 200 mg by mouth every 6 (six) hours as needed for pain. 0 Active Active Problems Problem Noted Date Diagnosed Date Arthritis of left hip 11/18/2017 Social History Tobacco Use Types Packs/Day Years Used Date Smoking Tobacco: Never Alcohol Use Standard Drinks/Week Comments No 0 (1 standard drink = 0.6 oz pur e alcohol) Sex and Gender Information Value Date Recorded Sex Assigned at Not on file Gender Identity Not on file Sexual Orientation Not on file Plan of Treatment Health Maintenance Due Date Last Done Comments Hepatitis C Screening 1950 COVID-19 Vaccine (#1) 03/11/1949 Depression Screening 1960 Preventative Health Evaluation 1966 DTap / Tdap / Td (1 - Tdap) 1967 Shingrix-Zoster Vaccine (1 of 2) 1998 Fall Risk Assessment 2013 Osteoporosis Screening (DEXA Scan) 2013 Pneumococcal Vaccine (1 of 1 - PCV) 2013 RSV Adult > 60+ Yrs or Pregn ant (1 - 1-dose 75+ series) 2023 Influenza Vaccine (#1) 2024 Hepatitis B Vaccines Aged Out No long er eligible based on patient's age to complete this topic RSV Ped < 20 months Aged Out No longe r eligible based on patient's age to complete this topic Care Teams Pole Framer Relationship Specialty Start Date End Date Heavenly Kaur MD PCP - General Internal Medicine 10/27/17
--- OUTSIDE RECORDS SUMMARY | 2024-12-06 11:48 | XMS_ITS ---
Author Organization [facility] Address [address] [place] [address] Care Team Providers Care Drupal Developer Name Role Phone Shyann Nobles Primary Care Provider Filiberto Zaragoza [phone] REASON FOR VISIT Nasal gastric tube Encounters Encounter Location Date Provider Diagnosis [facility] [address] [place] [address] 03/22/2024 Filiberto Chu PLAN OF TREATMENT No Information
--- OUTSIDE RECORDS SUMMARY | 2024-12-06 11:48 | XMS_ITS | Patient Health Record ---
Author Organization [facility] Address [address] [place] [address] Care Team Providers Care Hardwood Floor Sander Name Role Phone Saqib Nobles Primary Care Provider Helena e Filiberto Chu Unavailable [phone] ALLERGIES No Known Allergies RESULTS Component Value Reference Range Notes XR chest 1V Reviewed date:03/23/2024 12:16:10 AM Interpretation: Performing Lab: Notes/Report: [facility] [address] [place] [address] XRay Report Signed with Addenda Patient: Linda Vann MR# : [id number] : 1950 Acct:[id number] Age/Sex: 73 / F ADM Date: 03/16/24 Loc: HO.S3 373-[address]: Ivis Schmitz MD Ordering Physician: Filiberto Chu Date of Service: 03/16/24 Procedure(s): XR chest 1V Accession Number(s): [id number] cc: SAQIB NOBLES MD; Filiberto Chu ADDENDUM Findings communicated to Imani Stuart Marble Carver by the [facility] workflow pulper tender on 03/22/2024 at 11:16 AM. Addendum Dictated By: Viktoria Broussard MD Addendum Signed By: <Electronically signed by Viktoria Broussard MD in OV> 03/22/24 1724 Addendum Cosigned By: DD/ /09/1531 TD/TT: / EXAMINATION: XR CHEST CLINICAL INFORMATION: Nasogastric tube placement COMPARISON: CT of the abdomen and pelvis from earlier the same day TECHNIQUE: Frontal view of the chest was obtained. FINDINGS: Nasogastric tube appears coiled in the distal thoracic esophagus with tip of the tube projecting cephalad toward the head. Cardiac and mediastinal contours are normal. Lungs are clear. No pleural effusion or pneumothorax. There are dilated loops of bowel below the diaphragms similar to earlier CT. XR/XR chest 1V IMPRESSION: 1. Nasogastric tube coiled in the distal thoracic esophagus with tip of the tube projecting cephalad toward the head. Repositioning recommended. Findings will be communicated by the [facility] work flow pulper tender. Dictated By: Viktoria Broussard MD Signed By: <Electronically signed by Viktoria Broussard MD in OV> 03/16/24 1610 DD/ 1532 TD/TT: Ground Water Technician: TYE Prothrombin Time INR Reviewed date:03/17/2024 09:50:32 AM Interpretation: Performing Lab:[facility], [address] [place] [phone] Notes/Report: Prothrombin Time 13.9 11.1-13.3 SEC INTERNATIONAL NORM RATIO 1.1 0.9-1.1 INTERNATIONAL NORMALIZED RATIO (INR) REFERENCE RANGES Reference Range For patients not on anticoagulant therapy: 0.9 - 1.1 INR ranges for oral anticoagulant therapy: For prevention and treatment of venous thrombosis and pulmonary embolism: 2.0 - 3.0 For acute myocardial infarction with aspirin therapy: 2.0 - 3.0 For acute myocardial infarction without aspirin therapy: 3.0 - 4.0 For patients with mechanical prosthetic heart valves: 2.5 - 3.5 Carcinoembryonic Antigen Reviewed date:03/17/2024 09:50:18 AM Interpretation: Performing Lab:[facility], [address] [place] [phone] Notes/Report: Carcinoembryonic Antigen 5.90 CEA Reference Range: 93.4% Non-Smokers = 0.0-3.0 ng/mL 95.6% Smokers = 0.0-5.0 ng/mL CEA Methodology: Agensys Alinity i Chemiluminescent Microparticle Immunoassay (CMIA) CEA testing can have significant value in monitoring of patients with diagnosed malignancies in whom changing concentrations of CEA are observed. Values obtained with different assay methods cannot be used interchangeably. Pathology Reviewed date:03/27/2024 11:12:49 PM Interpretation: Performing Lab:[facility], [address] [place] [phone] Notes/Report: REASON FOR REFERRAL No Information SOCIAL HISTORY Tobacco Use: Social History Observation Description Date Details (start date - stop date) Never Smoker NA - NA Sex Assigned At : Social History Observation Description Sex Assigned At Unknown Tobacco Use/Smoking Question Answer Notes Patient is a nonsmoker Alcohol Screen Question Answer Notes Did you have a drink containing alcohol in the p ast year? No Points 0 Interpretation Negative PROBLEMS Problem Type ICD Code Onset Dates Problem Status W/U Status Risk SNOMED Code Notes Problem Iron deficiency anemia (D50.9) Active confirmed Iron deficien cy anemia (60808883) Problem Adenocarcinoma of colon (C18.9) Active confirmed Malignant neoplasm of colon (840244854) Problem Personal history of colon cancer (Z85.038) Active confirmed History of malignant neoplasm of colon (248773023) Problem Adenocarcinoma of sigmoid colon (C18.7) Active confirmed Adenocarcinoma of sigmoid colon (013008470) Problem Colon cancer screening (Z12.11) Active confirmed Colon cancer screening (540260424) Problem History of colon cancer (Z85.038) Active confirmed History of malignant neoplasm of colon (617147254) VITAL SIGNS Blood pressure diastolic 00 mm Hg 10/04/2024 Height 5 ft 0 in in 10/04/2024 Blood pressure systolic 00 mm Hg 10/04/2024 Weight 99.4 lbs 10/04/2024 BMI 19.41 kg/m2 10/04/2024 Encounters Encounter Location Date Provider Diagnosis [facility] Outpatient [address] [place] [id number] 11/22/2024 Filiberto Chu Colon cancer screeni ng Z12.11 ; History of colon cancer Z85.038 and Personal history of colonic polyps Z86.0100 [facility] [address] [place] [phone] 10/04/2024 Filiberto Chu Personal history of colon cancer Z85.038 ; Adenocarcinoma of sigmoid colon C18.7 and Colon cancer screening Z12.11 [facility] Inpatient [address] [place] [id number] 03/17/2024 Filiberto Chu [facility] [address] [place] [phone] 03/22/2024 Filiberto Chu ASSESSMENTS Encounter Date Diagnosis Assessment Notes Treatment Notes Treatment Clinical Notes 11/22/2024 Colon cancer screening (ICD-10 - Z12.11) 11/22/2024 History of colon cancer (ICD-10 - Z85.038) 10/04/2024 Personal history of colon cancer (ICD-10 - Z85.038) 10/04/2024 Adenocarcinoma of sigmoid colon (ICD-10 - C18.7) 11/22/2024 Personal history of colonic polyps (ICD-10 - Z86.0100) 10/04/2024 Colon cancer screening (ICD-10 - Z12.11) PLAN OF TREATMENT Future Test Test Name Order Date COLONOSCOPY 10/04/2024 Insurance Providers Payer Name Payer Address Payer Phone Subscriber Number Group Number Insured Name Patient Relationship to Insured Coverage Start Date Coverage End Date MEDICARE OF [place] [address] [facility] [place] [address] [id number] LINDA VANN Self - patient is the insured [employer] ATT[employer] CLAIMS [address] [place] [address] [phone] [id number] LINDA VANN Self - patient is the insured MEDICAL (GENERAL) HISTORY Medical History History ICD Code Denies MO,DM,CVA,Lung disease,renal dise ase Obstructing sigmoid colon ad enocarcinoma in March of 2024. Limited sigmoidoscopy revealed the obstructing cancer, as well as a rectal tubulovillous adenoma that was removed at that time. The colon cancer was a stage [id number] was moderately differentiated, 3 of 20 lymph nodes were positive for cancer, and there was invasion into the pericolonic tissue. She had subsequent chemotherapy for 3 months at [facility] with Dr. Alvarado Surgical History Surgery Date(Month/Year) Left hip replacement 2017 Sigmoid resection for colon cancer as above with temporary colostomy with Dr. Bryant 03/2024
--- OUTSIDE RECORDS SUMMARY | 2024-12-06 11:48 | XMS_ITS ---
Author Organization [facility] Address [address] [place] [address] Care Team Providers Care Internet Security Specialist Name Role Phone Shyann Nobles Primary Care Provider Filiberto Zaragoza [phone] ALLERGIES No Known Allergies REASON FOR VISIT patient presents today for colon screening SOCIAL HISTORY Tobacco Use: Social History Observation [...] W/U Status Risk SNOMED Code Notes Problem Personal history of colon cancer (Z85.038) Active confirmed History of malignant neoplasm of colon (535734831) Problem Adenocarcinoma of sigmoid colon (C18.7) Active confirmed Adenocarcinoma of sigmoid colon (583558370) Problem Colon cancer screening (Z12.11) Active confirmed Colon cancer screening (517903825) VITAL SIGNS BMI 19.41 kg/m2 10/04/2024 Blood pressure systolic 00 mm Hg 10/04/20 24 Blood pressure diastolic 00 mm Hg 024 Height 5 ft 0 in in 10/04/2024 Weight 99.4 lbs 10/04/2024 Encounters Encounter Location Date Provider Diagnosis [facility] [address] [place] [address] 10/04/2024 Filiberto Chu Personal history of colon cancer Z85.038 ; Adenocarcinoma of sigmoid colon C18.7 and Colon cancer screening Z12.11 ASSESSMENTS Encounter Date Diagnosis Assessment Notes Treatment Notes Treatment Clinical Notes 10/04/2024 Personal history of colon cancer (ICD-10 - Z85.038) 10/04/2024 Adenocarcinoma of sigmoid colon (ICD-10 - C18.7) 10/04/2024 Colon cancer screening (ICD-10 - Z12.11) PLAN OF TREATMENT Future Test Test Name Order Date COLONOSCOPY 10/04/2024 Next Appt Details Follow Up: prn, Reason: Progress Notes * Examination Category Sub-Category Detail Notes General Examination GENERAL APPEARANCE: pleasant , well nourished, well developed, in no acute distress HEAD: EYES: sclera non-icteric EARS: NOSE: THROAT: NECK/THYROID: no cervical lymphade nopathy, neck supple HEART: S1, S2 normal CHEST: LUNGS: clear to auscultatio n bilaterally ABDOMEN: normal bowel sounds, no guarding or rigidity, no guarding or rigidity, no masses palpable, soft, nontender, nondistended NEUROLOGIC: alert and oriented SKIN: nonjaundiced, no spi jaime angiomata EXTREMITIES: no edema PERIPHERAL PULSES: BACK: BREASTS: MUSCULOSKELETAL: MALE GENITOURINARY: LYMPH NODES: RECTAL EXAM: FEMALE GENITOURINARY: ORAL CAVITY: mucosa moist
--- OUTSIDE RECORDS SUMMARY | 2024-12-06 11:48 | XMS_ITS ---
Author Organization [facility] Address [address] [place] [address] Care Team Providers Care Public Services Librarian Name Role Phone Shyann Nobles Primary Care Provider Filiberto Zaragoza Unavailable [phone] REASON FOR VISIT personal hx colon ca,adenocarcinoma of sigmid colon,screening PROBLEMS Problem Type ICD Code Onset Dates Problem Status W/U Status Risk SNOMED Code Notes Problem History of colon cancer (Z85.038) Active confirmed History of malignant neoplasm of colon (643688175) Encounters Encounter Location Date Provider Diagnosis [facility] Outpatient [address] [place], [place] [phone] 11/22/2024 Filiberto Chu Colon cancer scree renato Z12.11 ; History of colon cancer Z85.038 and Personal history of colonic polyps Z86.0100 ASSESSMENTS Encounter Date Diagnosis Assessment Notes Treatment Notes Treatment Clinical Notes 11/22/2024 Colon cancer screening (ICD-10 - Z12.11) 11/22/2024 History of colon cancer (ICD-10 - Z85.038) 11/22/2024 Personal history of colonic polyps (ICD-10 - Z86.0100) PLAN OF TREATMENT No Information
== END 2024-12-06 10:44 | disposition home or self-care (01) ==
PROVIDERS: PCP Internal Medicine; Visit Provider Surgery
DX: Z98.890 Other specified postprocedural states (principal); C18.7 Malignant neoplasm of sigmoid colon
CPT/HCPCS: 99024

== ENCOUNTER → 2024-12-06 10:29 | Outpatient (BNVA) | payer MEDICARE, SELFPAY | PROVIDERS: PCP Internal Medicine; Visit Provider Surgery | DX: C18.7 Malignant neoplasm of sigmoid colon (principal); Z98.890 Other specified postprocedural states | CPT/HCPCS: 99212 ==

== ENCOUNTER 2025-01-20 09:51 | Outpatient (AMB) | payer MEDICARE, SELFPAY ==
--- NOTE | 2025-01-20 09:52 | A.OFFVIS_ITS ---
Vital Signs 01/20/25 09:57 Height 5 ft Weight 102 lb 4 oz BMI 20.0 BP 144/65 H Blood Pressure Location Lt brachial Position Sitting Pulse 97 Intake Visit Reasons: 1 month follow up S/P Colostomy reversal Intake Note: Patient is seen in office for one month follow up visit, post colostomy reversal. Pt c/o: denies any concerns at the time of visit Type Rolling Machine Operator Required: No Accompanied by: Family/Other Allergies No Known Allergies Allergy (Verified 01/20/25 09:57) Medication List - Last Reconciled 01/20/25 by Earl Bryant MD multivitamin 1 tab PO DAILY HPI Comments Details: Patient returns 1 month following closure of colostomy. She feels well and denies any abdominal pain, nausea, vomiting, or difficulty with the bowels. [facility] Medical History Wears dentures History of chemotherapy Hx of flexible sigmoidoscopy (03/17/24) Small bowel obstruction Bowel obstruction Adenocarcinoma of sigmoid colon Surgical History S/P laparoscopic-assisted sigmoidectomy (03/18/24) History of total left hip arthroplasty Social History Household Members: Spouse Housing: Apartment Are you a primary medicare interviewer to a significant other at home: No Do you presently have visiting nurse or other home services: No 75 years or older and lives alone: No Patient Tobacco Use Status: Never used Tobacco e-Cigarette/Vaping Use: Never Used Advance Directives Date on File: 10/21/24 service: No Current occupational status: retired Physical Exam Vital Signs: Last Vital Signs Pulse 97 01/20/25 09:57 BP 144/65 H 01/20/25 09:57 BMI result Body Mass Index 20.0 Const General: comfortable Nutritional Appearance: well nourished Orientation/consciousness: patient oriented x3 Resp Effort & Inspection: normal respiratory effort, no audible wheezes and no cough GI Other: Soft, nondistended, well-healed trocar incisions with intact Steri-Strips. Neuro General: patient oriented x3 Extrem General: Yes no clubbing, cyanosis or edema Assessment & Plan Assessment & Plan (1) History of colostomy reversal: Code(s): Z98.890 - Other specified postprocedural states Category: Surgical (2) Adenocarcinoma of sigmoid colon: Code(s): C18.7 - Malignant neoplasm of sigmoid colon Category: Medical Plan 74-year-old female status post closure of colostomy 1 week ago. Her wounds are healing nicely in her bowel function has returned to normal. She may return to normal activity without restrictions and should follow up as needed. Coding Level of Care Code Global (44801) Diagnoses History of colostomy reversal Z98.890 Adenocarcinoma of sigmoid colon C18.7
[2025-01-20 09:57] VITALS: BP 144/65; PULSE 97
--- OUTSIDE RECORDS SUMMARY | 2025-01-20 10:50 | XMS_ITS ---
Author Organization [facility] Address [address] [place] [address] Care Team Providers Care Business Supervisor Name Role Phone Shyann Nobles Primary Care Provider Filiberto Zaragoza [phone] REASON FOR VISIT Nasal gastric tube Encounters Encounter Location Date Provider Diagnosis [facility] [address] [place] [address] 03/22/2024 Filiberto Chu Plan Of Treatment No Information Progress Notes * LUI VANNB :1950 (73 yo F)Acc No.[id number]:03/22/2024 Patient:?GAMBINOWILBER SHEA :1950???Age:73 Y???Sex:Female Address:[address] [place] [address], [place], [address] * true * Date:? Generated for Janettei ace/Abby/eTransmitting on:?01/20/2025 10:50 AM EST
--- OUTSIDE RECORDS SUMMARY | 2025-01-20 10:50 | XMS_ITS | Clinical Summary ---
Author Organization [facility] Address [address] [place] [address] Care Team Providers Care Dairy Department Manager Name Role Phone Heavenly Kaur MD Primary [...] age to complete this topic Care Teams Dairy Department Manager Relationship Specialty Start Date End Date Heavenly Kaur MD PCP - General Internal Medicine 10/27/17
--- OUTSIDE RECORDS SUMMARY | 2025-01-20 10:50 | XMS_ITS ---
Author Organization [facility] Address [address] [place] [id number] Care Team Providers Care Automobile Racer Name Role Phone Shyann Nobles Primary Care Provider Filiberto Zaragoza [phone] Allergies No Known Allergies REASON FOR VISIT patient presents today for colon screening Social History Tobacco Use: Social History Observation Description Date Details (start date - stop date) Never Smoker NA - NA Tobacco Use/Smoking Question Answer Notes Patient is a nonsmoker Alcohol Screen Question Answer Notes Did you have a drink containing alcohol in the p ast year? No Points 0 Interpretation Negative Problems Problem Type SNOMED Code ICD Code Onset Dates Problem Status W/U Status Risk Notes Problem History of malignant neoplasm of colon (370925274) Personal history of colon cancer (Z85.038) Active confirmed Problem Adenocarcinoma of sigmoid colon (417414213) Adenocarcinoma of sigmoid colon (C18.7) Active confirmed Problem Colon cancer screening (913303622) Colon cancer screening (Z12.11) Active confirmed Vital Signs Blood pressure systolic 00 mm Hg 10/04/20 24 Blood pressure diastolic 00 mm Hg 024 Height 5 ft 0 in in 10/04/2024 Weight 99.4 lbs 10/04/2024 BMI 19.41 kg/m2 10/04/2024 Encounters Encounter Location Date Provider Diagnosis [facility] [address] [place] [address] 10/04/2024 Filiberto Chu Personal history of colon cancer Z85.038 ; Adenocarcinoma of sigmoid colon C18.7 and Colon cancer screening Z12.11 Assessments Encounter Date Diagnosis (ICD Code) Assessment Notes Treatment Notes Treatment Clinical Notes Section Notes 10/04/2024 Personal history of colon cancer (ICD-10 - Z85.038) Overall, Linda appears quite well. Her colostomy seems to be functioning well. We did discuss her need for a complete colonoscopy at this point to rule out any proximal lesions since the initial exam at the time of her presentation was very limited to the rectum and distal sigmoid colon. We did review the rationale for this regard to colorectal cancer prevention and/or early detection. The colonoscopy via the stoma, as well as reinspection of the rectum, will be done the day before her colostomy reversal so as to allow her to only need one bowel prep. This will be coordinated with Dr. Bryant's surgery. Full consent has been obtained for the colonoscopy, including risks of bleeding and perforation. The procedure will be done with monitored anesthesia care. Linda and her daughter were comfortable with this plan. Thank you again for allowing me to participate in Linda's care. I shall continue to keep you advised of her progress. 10/04/2024 Adenocarcinoma of sigmoid colon (ICD-10 - C18.7) Overall, Linda appears quite well. Her colostomy seems to be functioning well. We did discuss her need for a complete colonoscopy at this point to rule out any proximal lesions since the initial exam at the time of her presentation was very limited to the rectum and distal sigmoid colon. We did review the rationale for this regard to colorectal cancer prevention and/or early detection. The colonoscopy via the stoma, as well as reinspection of the rectum, will be done the day before her colostomy reversal so as to allow her to only need one bowel prep. This will be coordinated with Dr. Bryant's surgery. Full consent has been obtained for the colonoscopy, including risks of bleeding and perforation. The procedure will be done with monitored anesthesia care. Linda and her daughter were comfortable with this plan. Thank you again for allowing me to participate in Linda's care. I shall continue to keep you advised of her progress. 10/04/2024 Colon cancer screening (ICD-10 - Z12.11) Overall, Linda appears quite well. Her colostomy seems to be functioning well. We did discuss her need for a complete colonoscopy at this point to rule out any proximal lesions since the initial exam at the time of her presentation was very limited to the rectum and distal sigmoid colon. We did review the rationale for this regard to colorectal cancer prevention and/or early detection. The colonoscopy via the stoma, as well as reinspection of the rectum, will be done the day before her colostomy reversal so as to allow her to only need one bowel prep. This will be coordinated with Dr. Bryant's surgery. Full consent has been obtained for the colonoscopy, including risks of bleeding and perforation. The procedure will be done with monitored anesthesia care. Linda and her daughter were comfortable with this plan. Thank you again for allowing me to participate in Linda's care. I shall continue to keep you advised of her progress. Plan Of Treatment Future Test Test Name Order Date COLONOSCOPY 10/04/2024 Next Appt Details Follow Up: prn, Reason: Progress Notes * LUI VANNB :1950 (74 yo F)Acc No.[id number]:10/04/2024 Progress Notes Patient:?LINDA VANN Provider:?Filiberto Chu MD :1950???Age:74 Y???Sex:Female D ate:10/04/2024 Address:[address] [place], [place] [id number] Pcp:Shyann Nobles Subjective: * Chief Complaints: * ???Patient presents today fo r colon screening * HPI: ???incontinence:? I saw Linda in the office today for followup of her personal history of a sigmoid colon adenocarcinoma with associated colonic obstruction and a rectal tubulovillous adenoma. She was accompanied by her daughter, Scar, who helped with interpreting. ?I last saw Linda when she presented this past May with a colonic obstruction from a sigmoid colon adenocarcinoma. A limited sigmoidoscopy could not get past the cancer. She did have a fairly large tubulovillous adenoma removed from the rectum at that time as well. She subsequently underwent surgery with Dr. Bryant with resection of the mass and a colostomy. She just finished 3 months of chemotherapy at [facility] with Dr. Alvarado. ?In general, she has been feeling well other than some fatigue and mild weight loss. However, she has been eating well and has gained a few pounds back and is now just about 10 pounds below her baseline weight. She enjoys a good appetite and denies any significant heartburn or dysphagia. She denies any nausea, vomiting, abdominal pain, abdominal distention, nor jaundice. She reports that her colostomy is working well and there had been no signs of bleeding. She has seen Dr. Bryant recently and the plan is for reversal of the colostomy after she has her colonoscopy with me for completion of her screening since the initial procedure in March was very limited to just the rectum and lower sigmoid colon because of the obstruction. * ROS:?General/Constitutional:?Change in appetite?denies.?Chills?denies.?Fatigue?denies.?Ophthalmologic:?Comments?all negative.?ENT:?Comments?all negative.?Respiratory:?hemoptysis?denies.?Cough?denies.?Cardiovascular:?Chest pain?denies.?Orthopnea?denies.?Gastrointestinal:?Comments?See HPI for details.?Genitourinary:?Hematuria?denies.?Dysuria?denies.?Musculoskeletal:?Painful joints?denies.?Weakness?denies.?Skin:?Itching?denies.?Rash?denies.?Neurologic:?Headache?denies.?Seizures?denies.?Psychiatric:?Comments?all negative.? * Medical History:? * Surgical History:?Left hip r eplacement 2017Sigmoid resection for colon cancer as above with temporary colostomy with Dr. Bryant 03/2024 * Hospitalization/Major Diagno stic Procedure:?No Hospitalization History. * Family History:?Father: dece ased.?Mother: .? no known hx of colon ca,polyp or liver ds. * Social History:?Tobacco Use:?Tobacco Use/Smoking?Patient is a?nonsmoker.?Drugs/Alcohol:?Alcohol Screen?Did you have a drink containing alcohol in the past year??No,?Points?0,?Interpretation?Negative.?Miscellaneous:?Marital status: . Occupation: retired. * Medications:?None * Allergies:?N.K.D.A.yes[Aller gies Verified] Objective: * Vitals:?Wt: 99.4 lbs, Ht: 5 ft 0 in, BMI:19.41 Index, BP: 00/00 mm Hg. * Examination: ???General Examination: ?GENERAL APPEARANCE:?pleasant, well nourished, well developed, in no acute distress.?EYES:?sclera non-icteric.?ORAL CAVITY:?mucosa moist.?NECK/THYROID:?no cervical lymphadenopathy, neck supple.?SKIN:?nonjaundiced, no spider angiomata.?HEART:?S1, S2 normal.?LUNGS:?clear to auscultation bilaterally.?ABDOMEN:?normal bowel sounds, no guarding or rigidity, no guarding or rigidity, no masses palpable, soft, nontender, nondistended.?EXTREMITIES:?no edema.?NEUROLOGIC:?alert and oriented.? Assessment: * Assessment: 1.?Adenocarcinoma of sigmoid colon - C18.7 (Primary)?2.?Personal history of colon cancer - Z85.038?3.?Colon cancer screening - Z12.11? Overall, Linda appears quit e well. Her colostomy seems to be functioning well. We did discuss her need for a complete colonoscopy at this point to rule out any proximal lesions since the initial exam at the time of her presentation was very limited to the rectum and distal sigmoid colon. We did review the rationale for this regard to colorectal cancer prevention and/or early detection. The colonoscopy via the stoma, as well as reinspection of the rectum, will be done the day before her colostomy reversal so as to allow her to only need one bowel prep. This will be coordinated with Dr. Bryant's surgery. Full consent has been obtained for the colonoscopy, including risks of bleeding and perforation. The procedure will be done with monitored anesthesia care. Linda and her daughter were comfortable with this plan. Thank you again for allowing me to participate in Linda's care. I shall continue to keep you advised of her progress. Plan: * Treatment: 2.?Personal history of colon cancer?Procedure: COLONOSCOPY (Ordered for 10/04/2024)* via the stoma; with MACsched for 11/22/24 at 7:30 ammiralax 3.?Colon cancer screening?Procedure: COLONOSCOPY (Ordered for 10/04/2024)* via the stoma; with MACsched for 11/22/24 at 7:30 ammiralax * Procedure Codes:?1036F TOBAC CO NON-[id number] BP SCR NOT PRFRM REC REASON NOS * Preventive Medicine:? ??Urinary Incontinence:?Urinary Incontinence?Assessment:?Present,?Plan of care documented:?Yes,?Type of plan of care:?Lifestyle interventions.? ??Screenings:?Fall Risk Screening?Fall Risk Assessment:?No falls in the past year,?Screening:?No falls in the past year,?Assessment:?Not performed, no reason specified,?Plan of Care:?Not documented, no reason specified.? * Follow Up:?prn * * Sign off status: Completed true * Provider:?Filiberto Chu MD Date:? 024 Generated for Katie bello/Abby/eThughsmitting on:?01/20/2025 10:50 AM EST History and Physical Notes * HPI (History of Present Illness) Category Sub-Category Detail Notes Category Not es incontinence I saw Linda in the office today for followup of her personal history of a sigmoid colon adenocarcinoma with associated colonic obstruction and a rectal tubulovillous adenoma. She was accompanied by her daughter, Scar, who helped with interpreting. I last saw Linda when she presented this past May with a colonic obstruction from a sigmoid colon adenocarcinoma. A limited sigmoidoscopy could not get past the cancer. She did have a fairly large tubulovillous adenoma removed from the rectum at that time as well. She subsequently underwent surgery with Dr. Bryant with resection of the mass and a colostomy. She just finished 3 months of chemotherapy at [facility] with Dr. Alvarado. In general, she has been feeling well other than some fatigue and mild weight loss. However, she has been eating well and has gained a few pounds back and is now just about 10 pounds below her baseline weight. She enjoys a good appetite and denies any significant heartburn or dysphagia. She denies any nausea, vomiting, abdominal pain, abdominal distention, nor jaundice. She reports that her colostomy is working well and there had been no signs of bleeding. She has seen Dr. Bryant recently and the plan is for reversal of the colostomy after she has her colonoscopy with me for completion of her screening since the initial procedure in March was very limited to just the rectum and lower sigmoid colon because of the obstruction. Examination Category Sub-Category Detail Notes Category Not es General Examination GENERAL APPEARANCE: pleasant , well [...]
--- OUTSIDE RECORDS SUMMARY | 2025-01-20 10:50 | XMS_ITS ---
Author Organization [facility] Address [address] [place] [phone] Care Team Providers Care Non Destructive Testing Specialist Name Role Phone Shyann Nobles Primary Care Provider Filiberto Zaragoza [phone] REASON FOR VISIT personal hx colon ca,adenocarcinoma of sigmid colon,screening Problems Problem Type SNOMED Code ICD Code Onset Dates Problem Status W/U Status Risk Notes Problem History of malignant neoplasm of colon (768827130) History of colon cancer (Z85.038) Active confirmed Encounters Encounter Location Date Provider Diagnosis [facility] [address] [place], [place] [id number] 11/22/2024 Filiberto Chu Colon cancer scree renato Z12.11 ; History of colon cancer Z85.038 and Personal history of colonic polyps Z86.0100 Assessments Encounter Date Diagnosis (ICD Code) Assessment Notes Treatment Notes Treatment Clinical Notes Section Notes 11/22/2024 Colon cancer screening (ICD-10 - Z12.11) 11/22/2024 History of colon cancer (ICD-10 - Z85.038) 11/22/2024 Personal history of colonic polyps (ICD-10 - Z86.0100) Plan Of Treatment No Information Progress Notes * LUI VANNB :1950 (74 yo F)Acc No.[id number]:11/22/2024 COLON WITH MAC Patient:?WILBER VANN Provider:?Filiberto Chu MD :1950???Age:74 Y???Sex:Female D ate:11/22/2024 Address:[address] [place] [address] [address], [place], [place] Pcp:Shyann Nobles Subjective: * Chief Complaints: * ???1. Personal hx colon ca,a denocarcinoma of sigmid colon,screening. * Medical History:? Objective: * Vitals:? Assessment: * Assessment: 1.?Colon cancer screening - Z12.11 (Primary)???2.?History of colon cancer - Z85.038???3.?Personal history of colonic polyps - Z86.0100??? Plan: * Treatment: * Procedure Codes:?19653 COLON ENDOSCOPY, Modifiers: PT , 0529F INTRVL 3+YRS PTS CLNSCP DOCD, Modifiers: 1P , 0528F RCMND FLW-UP 10 YRS DOCD, Modifiers: 1P * * The named appointment provid er may or may not be the originator of this progress note, and it is not deemed complete until electronically signed by the appointment provider. Sign off status: Pending * Provider:?Filiberto Chu MD Date:? 025 Generated for Katie bello/Abby/eTransmitting on:?01/20/2025 10:50 AM EST
--- OUTSIDE RECORDS SUMMARY | 2025-01-20 10:50 | XMS_ITS | Patient Health Record ---
Author Organization [facility] Address [address] [place] [id number] Care Team Providers Care Sales Strategy Manager Name Role Phone Shyann Nobles Primary Care Provider Helena e Filiberto Chu Unavailable [phone] Allergies No Known Allergies Results Component Value Reference Range Notes XR chest 1V Reviewed date:03/23/2024 12:16:10 AM Interpretation: Performing Lab: Notes/Report: [facility] [address] [place] [address] XRay Report Signed with Addenda Patient: Linda Smith MR# : [id number] : 1950 Acct:[id number] Age/Sex: 73 / F ADM Date: 03/16/24 Loc: HO.S3 373-[address]: Ivis Schmitz MD Ordering Physician: Filiberto Chu Date of Service: 03/16/24 Procedure(s): XR chest 1V Accession Number(s): [id number] cc: SHYANN NOBLES MD; Filiberto Chu ADDENDUM Findings communicated to Imani Stuart Pit Furnace Operator by the Marvin workflow admin dir on 03/22/2024 at 11:16 AM. Addendum Dictated [...] recommended. Findings will be communicated by the Marvin work flow admin dir. Dictated By: Viktoria Broussard MD Signed By: <Electronically signed by Viktoria Broussard MD in OV> 03/16/24 1610 DD/ 31 TD/TT: Farm Implement Mechanic: [place] [address] XRay Report Signed with Addenda Patient: Linda Smith MR# : [id number] : 1950 Acct:[id number] Age/Sex: 73 / F ADM Date: 03/16/24 Loc: HO.S3 373-[address]: Ivis Schmitz MD Ordering Physician: Filiberto Chu Date of Service: 03/16/24 Procedure(s): XR chest 1V Accession Number(s): [id number] cc: SHYANN NOBLES MD; Filiberto Chu ADDENDUM Findings communicate d to Imani Stuart Pit Furnace Operator by the Marvin workflow admin dir on 03/22/2024 at 11:16 AM. Addendum Dictated By : Viktoria Broussard MD Addendum Signed By: <Electronically signed by Viktoria Broussard MD in OV> 03/22/24 1724 Addendum Cosigned By: DD/ /09/1531 TD/TT: / EXAMINATION: XR CHEST CLINICAL INFORMATION: Nasogastric tube placement COMPARISON: CT of the abdomen an d pelvis from earlier the same day TECHNIQUE: Frontal view of the chest was obtained. FINDINGS: Nasogastric tube mayelin ears coiled in the distal thoracic esophagus with tip of the tube proj ecting cephalad toward the head. Cardiac and mediastinal contours are normal. Lungs are clear. No pleural effusion or pneumothorax. The re are dilated loops of bowel below the diaphragms similar to earlier CT. X R/XR chest 1V IMPRESSION: 1. Nasogastric tube coiled in the distal thoracic esophagus with tip of the tube projecti ng cephalad toward the head. Repositioning recommended. Findings will be communicated by the Marvin work flow admin dir. Dictated By: Viktoria Broussard MD Signed By: <Rafaela julio signed by Viktoria Broussard MD in OV> 03/16/24 1610 DD/ 1532 TD/TT: Molecular Biology Scientist ist: TYE Prothrombin Time INR Reviewed date:03/17/2024 09:50:32 AM Interpretation: Performing Lab:[facility], [address] [place] [phone] Notes/Report: Prothrombin Time 13.9 11.1-13.3 SEC INTERNATIONAL [...] Antigen Reviewed date:03/17/2024 09:50:18 AM Interpretation: Performing Lab:[facility], [address] [place] [phone] Notes/Report: Carcinoembryonic Antigen 5.90 CEA Reference Range: 93.4% Non-Smokers = 0.0-3.0 ng/mL 95.6% Smokers = 0.0-5.0 ng/mL CEA Methodology: Nuñez Alinity i Chemiluminescent Microparticle Immunoassay (CMIA) CEA testing can have significant value in monitoring of patients with diagnosed malignancies in whom changing concentrations of CEA are observed. Values obtained with different assay methods cannot be used interchangeably. Pathology Reviewed date:03/27/2024 11:12:49 PM Interpretation: Performing Lab:[facility], [address] [place] [phone] Notes/Report: ------- Name: Linda Smith Age/Sex: 73/F : 1950 Unit#: [id number] Attend Dr: Ivis Schmitz MD Re03/16/24 Status : DIS IN Location: [facility] 373-1 Disch: 03/22/24 ------- SPEC : [id number] RECD : 03/18/24 STATUS: QI JOHNSON NUM: [id number] MARINE: 03/17/24-8 [facility] DR: Filiberto Chu ENTERED: 03/18/24- 47 SP TYPE: Surgical OTHR DR: Ivis Schmitz MD ORDERED: HE Stain/6, Gross Micro L4/2, IHC, Add. immunos/3, IHC ER/IL/Her2N, [id number] COMMENTS: Block A se nt to LINDA for MMR Panel IHC's on 03/22/24. Addendum Addendum 2 Entered: 03/26/24-101 HER2 immunostain: Starr lan (0; appropriate positive control). Addendum Signed (signature on file) Rei Swain MD 03/26/24 1018 ------- Addendum 1 Entered: 03/26/24-1004 By immunohistochemis try, MLH1, PMS2, MSH2 and MSH6 are all reactive in the lesional cells; this is considered t he wild-type protein expression pattern (proficient MMR status). 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 Correlation with the patient's presentati on and family history is recommended. Technical services f or immunohistochemistry studies performed at [facility] [id number] [place] [address] Dr. Janina Al RI; [place] #[id number] Addendum Signed (signature on file) Rei Swain MD 03/26/24 1005 ------- Diagnosis A. Colon, mass at 15 cm, biopsy: Superficial fragments of adenocarcinoma. B. Rectum, polypecto my: Fragments of tubulovillous adenoma; negative for high-grade dysplasia or carcinoma. Comment: MSI studies will be addended on part A. Clinical History Pre-Op Dx: Bowel obstruction Post-Op Dx: Colon ma ss, rectal polyp CONTINUED ON NEXT PAGE ------- Name: AndersenLinda Hale Age/Sex: 73/F : 1950 Unit#: [id number] Attend Dr: Ivis Schmitz MD Re03/16/24 Status : DIS IN Location: [facility] 373-1 Disch: 03/22/24 ------- SPEC : [id number] RECD : 03/18/24 STATUS: QI JOHNSON NUM: [id number] MARINE: 03/17/24-14[address] [facility] DR: Filiberto Chu ENTERED: 03/18/24- 47 SP TYPE: Surgical OTHR DR: Ivis Schmitz MD ORDERED: HE Stain/6, Gross Micro L4/2, IHC, Add. immunos/3, IHC ER/IL/Her2N, [id number] COMMENTS: Block A se nt to LINDA for MMR Panel IHC's on 03/22/24. Microscopic Description A, B. Microscopic se ctions reviewed. Material Received A. Colon mass @ 15 cm B. Rectal polyp Gross Description Received in 2 parts Part A: Received in formalin labeled ?colon mass at 15 cm? are 4 hickey irregular tissue fragments ranging fr om 0.15-0.25 cm, submitted in toto in a cassette labeled A. Part B: Received in formalin labeled ?rectal polyp? is a 1.2 cm in greatest dimension filiform, friable, micropapillary, hickey-brown polypoid portion of tissue, sectioned and entirely submitted i n a cassette labeled B. CEDS This case was review ed intradepartmentally; results were communicated to Dr. Chu via secure text on 03/22/2024. Copies To: Ivis Schmitz MD [address] [place] [address] [place] [id number] ------- Signed (si gnature on file) Rei Swain MD 03/22/24 1050 ------- END OF REPORT Reason For Referral No Information Social History Tobacco Use: Social History Observation [...] Problem Status W/U Status Risk Notes Problem Colon cancer screening (209710523) Colon cancer screening (Z12.11) Active confirmed Problem Iron deficiency anemia (16287658) Iron deficiency anemia (D50.9) Active confirmed Problem History of malignant neoplasm of colon (770847984) History of colon cancer (Z85.038) Active confirmed Problem History of malignant neoplasm of colon (236781662) Personal history of colon cancer (Z85.038) Active confirmed Problem Malignant neoplasm of colon (940145099) Adenocarcinoma of colon (C18.9) Active confirmed Problem Adenocarcinoma of sigmoid colon (873810533) Adenocarcinoma of sigmoid colon (C18.7) Active confirmed Vital Signs Blood pressure diastolic 00 mm Hg 10/04/2024 Height 5 ft 0 in in 10/04/2024 Blood pressure systolic 00 mm Hg 10/04/2024 Weight 99.4 lbs 10/04/2024 BMI 19.41 kg/m2 10/04/2024 Encounters Encounter Location Date Provider Diagnosis [facility] [address] [place] [id number] 03/17/2024 Filiberto Chu [facility] [address] [place] [id number] 11/22/2024 Filiberto Chu Colon cancer screeni ng Z12.11 ; History of colon cancer Z85.038 and Personal history of colonic polyps Z86.0100 [facility] [address] [place] [phone] 10/04/2024 Filiberto Chu Personal history of colon cancer Z85.038 ; Adenocarcinoma of sigmoid colon C18.7 and Colon cancer screening Z12.11 [facility] [address] [place] [phone] 03/22/2024 Filiberto Chu Assessments Encounter Date Diagnosis (ICD Code) Assessment [...] again for allowing me to participate in Lnida's care. I shall continue to keep you advised of her progress. 11/22/2024 Personal history of colonic polyps (ICD-10 [...] Date MEDICARE OF [place] [address] [place] [address] [id number] LINDA SMITH Self - patient is the insured [employer] ATT[employer] CLAIMS [address] [place] [address] [id number] LINDA SMITH Self - patient is the insured Medical (General) History Medical History History ICD Code Denies UT,DM,CVA,Lung disease,renal dise ase Obstructing sigmoid colon ad enocarcinoma in March of 2024. Limited sigmoidoscopy revealed the obstructing cancer, as well as a rectal tubulovillous adenoma that was removed at that time. The colon cancer was a stage [id number] was moderately differentiated, 3 of 20 lymph nodes were positive for cancer, and there was invasion into the pericolonic tissue. She had subsequent chemotherapy for 3 months at [facility] with Dr. Alvarado Surgical History Surgery Date(Month/Year) Left hip replacement 2017 Sigmoid resection for colon cancer as above with temporary colostomy with Dr. Bryant 03/2024
== END 2025-01-20 10:04 | disposition home or self-care (01) ==
PROVIDERS: PCP Internal Medicine; Visit Provider Surgery
DX: Z98.890 Other specified postprocedural states (principal); C18.7 Malignant neoplasm of sigmoid colon
CPT/HCPCS: 99024

== ENCOUNTER → 2025-01-20 09:51 | Outpatient (BNVA) | payer MEDICARE, SELFPAY | PROVIDERS: PCP Internal Medicine; Visit Provider Surgery | DX: C18.7 Malignant neoplasm of sigmoid colon (principal); Z98.890 Other specified postprocedural states | CPT/HCPCS: 99212 ==